=== PATIENT | male | born 1955 | race Two or more races ===

== ENCOUNTER 2016-09-15 08:40 | Inpatient (IN) | payer MEDICAID ==
[~2016-09-15] VITALS: Ht 167.6 cm; Wt 63.5 kg
[2016-09-15] VITALS (14 sets, daily range): BP systolic 92–128; BP diastolic 54–81
--- NOTE | 2016-09-15 09:04 | Emergency Room Report ---
History of Present Illness General Chief Complaint: Dyspnea/Respdistress Source: Medical Record, EMS Present Illness HPI 61 YO M BIBEMS from SN[facility] [place] for "hypoxia." EMS states SNF did not tell them the actual O2 sat level. Patient improved to 100% on EMS given NRB. Patient was just allegedly discharged from outside community hospital yesterday after admission for cholecystitis, ?aspiration PNA, known chronic hypoNa, ETOH abuse, liver failure/cirrhosis. All this info from review of charts from [facility]. Patient not providing additional info now as is acutely ill. Allergies: Coded Allergies: No Known Allergies (Unverified , 09/15/16) Patient History Limited by: medical condition Past Medical History: other - Hyponatremia, liver failure/cirrhosis, ? cholecystitis, ETOH abuse Past Surgical History: unable to obtain Pertinent Family History: unable to obtain Social History: Reports: alcohol use Immunizations: UTD Reviewed Nursing Documentation: PMH: Agreed, PSxH: Agreed Review of Systems All Other Systems: limited - Acutely ill Physical Exam Vital Signs Date Time Temp Pulse Resp B/P Pulse Ox O2 Delivery O2 Flow Rate FiO2 09/15/16 08:41 99.9 165 29 128/81 Non-Rebreather Sp02 EP Interpretation: reviewed, abnormal General Appearance: alert, moderate distress, cachetic, thin, other - jaundiced , Chronically Ill Head: normocephalic, atraumatic Eyes: bilateral eye EOMI, bilateral eye PERRL ENT: normal ENT inspection, hearing grossly normal, normal voice Neck: normal inspection, full range of motion, supple, no bony tend Respiratory: no accessory muscle use, no wheezing, respiratory distress, accessory muscle use, rales, chest symmetrical, palpation of chest normal Cardiovascular #1: regular rate, rhythm, no edema, no JVD, bradycardia, tachycardia Gastrointestinal: normal inspection, normal bowel sounds, non tender, soft, no guarding, no hernia Genitourinary: no CVA tenderness Musculoskeletal: normal inspection, back normal, normal range of motion, Delta' s Sign negative Neurologic: normal inspection, alert, responsive, business 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 Normotensive. Tachypnic. Afebrile rectal tem DDx includes sepsis, heartfailure, respiratory failure, AMI Care included sepsis order set for labs, HOLDING 30cc/kg fluid resuscitation because of presumed fluid overload, initiation of IV antibiotics, tylenol PRN fever Care may include administration of vasopressors started to support failing circulatory system, includes frequent re-exam, interpretation of lab studies and consultation with hospitalist/manager resort. 65 minutes of critical care time was spent with this patient not including time spent performing separately reportable procedures. Central Line Central Line : Consent: Emergent Central Line Lumen: triple Maximal Sterile Barrier Tech: yes cap, yes mask, yes sterile gown, yes sterile gloves, yes large sterile sheet, yes hand hygiene, yes chlorhexidine prep No Max Barrier Tech Because: emergency insertion Central Line Postion: internal jugular (R), femoral (R) Anesthesia: local Complications: none Central Line Post Position: sutured, good blood return, position confirmed w / CXR Attempts: Other - attempt made at right femoral but patient appeared to have femoral vein posterior to femoral artery. Was aunable to cannulate. Patient developed hemtoma at the site and pressure dressing was placed Patient Tolerated: Well Complications: None Intubation Intubation : Consent: Emergent Intubation Method: orotracheal Tube Size (cm): 7.5 Medications: Etomidate, Rocuronium Breath Sounds after Intubation: equal Intubation Complications: no complications Post Intubation Xray: Yes Attempts: One Patient Tolerated: Well Complications: None Medical Decision Making Diagnostic Impression: Primary Impression: Respiratory distress ER Course 61 YO M with acute respiratory distress, hypoxia. VS abnromal for tachycardia, tachypnea, hypoxia. Normotensive. Afebrile. DDx includes acute CHF, Sepsis d/t PNA vs cholecystitis PLAN Cardiac, O2 monitor BIPAP Empiric ABx Close observation OMI admission EKG Diagnostic Results Rate: tachycardiac Rhythm: NSR ST Segments: no acute changes ASA given to the pt in ED: No Rhythm Strip Diag. Results EP Interpretation: yes Rate: 165 Rhythm: NSR, no PVC's, no ectopy Chest X-Ray Diagnostic Results EP Interpretation: Yes Findings: no pneumothorax, no acute cardiopulmonary disease, other - Possible right sided PNA. Bilateral pulm congestion Reevaluation Time: 09:46 Last Vital Signs Date Time Temp Pulse Resp B/P Pulse Ox O2 Delivery O2 Flow Rate FiO2 12/28/16 08:41 99.9 165 29 128/81 Non-Rebreather Status: improved Reevaluation Impression Labs: Leuks 16k. UA does not show infection. CMP with elevated bili likely chronic from liver cirrhosis CXR with right sided PNA on ED review A: Patient with marginal improvement on BIPAP, worsening mental status. Continued tachycardia to 160. Required emergent intubation Tx with vanc/zosyn for presumed sepsis, possibly right sided aspiration PNA noted on SNF charts from previous hospital stay Right IJ central line placed. IVF bolus for sepsis givirgil Endorsed to Dr Stoddard for ICU admission at [id number] Blood/Urine cx pending Disposition: ADMITTED INPATIENT Condition: Critical TAMARA RINCON M.D. Sep 15, 2016 09:04
[2016-09-15] MEDS ORDERED: Nitroglycerin Subl 0.4mg tab (Bottle Of 25) SL ONE (09:06)
[2016-09-15] MEDS ORDERED: Vancomycin 1gm inj IVPB ONE (09:06)
[2016-09-15] MEDS ORDERED: Zosyn 4.5gm inj ONE (09:06)
[2016-09-15] MEDS ORDERED: Nitroglycerin Subl 0.4mg tab (Bottle Of 25) SL PRN (09:15)
[2016-09-15 09:20] LABS: APPEARANCE,URINE CLEAR; KETONES,URINE NEGATIVE (NEGATIVE); LEUKOCYTE ESTERASE ,URINE 1+ (NEGATIVE); NITRITE,URINE NEGATIVE (NEGATIVE); PH,URINE 5 (4.5-8.0); PROTEIN,URINE 2+ (NEGATIVE); UROBILINOGEN,URINE 8 MG/DL (0.0-1.0)
[2016-09-15 09:21] LABS: MEAN CORPUSCULAR HEMOGLOBIN 32.2 PG (27.0-31.0); MEAN CORPUSCULAR HGB CONC 31.4 G/DL (32.0-36.0); MEAN CORPUSCULAR VOLUME 102 FL (80-99); MEAN PLATELET VOLUME 8.9 FL (6.5-10.1); PLATELET COUNT 50 K/UL (150-450); RED BLOOD COUNT 2.95 M/UL (4.70-6.10); RED CELL DISTRIBUTION WIDTH 21.2 % (11.6-14.8); WHITE BLOOD COUNT 15.8 K/UL (4.8-10.8)
[2016-09-15 09:23] LABS: ICTOTEST NEGATIVE
[2016-09-15 09:27] LABS: BACTERIA,URINE FEW /HPF; SQUAMOUS EPITHELIAL CELL,UR OCCASIONAL /LPF (NONE/OCC); YEAST,URINE FEW /HPF
[2016-09-15 09:33] LABS: ALANINE AMINOTRANSFERASE 29 U/L (3-41); ALBUMIN/GLOBULIN RATIO 0.6 (1.0-2.7); ANION GAP 13 (5-15); ASPARTATE AMINO TRANSFERASE 42 U/L (5-40); CALCIUM 8.8 mg/dL (8.6-10.2); CARBON DIOXIDE 23 mEQ/L (20-30); CHLORIDE 112 mEQ/L (98-107); CREATININE 0.9 mg/dL (0.7-1.2); GLOMERULAR FILTRATION RATE > 60 mL/min (>60); HEMOLYSIS 2; POTASSIUM 4.6 mEQ/L (3.4-4.9); SODIUM 148 mEQ/L (135-145); TOTAL PROTEIN 7.2 g/dL (6.6-8.7); TROPONIN I < 0.30 ng/mL (<=0.30)
[2016-09-15 09:43] LABS: CKMB 3.1 ng/mL (< 6.7)
[2016-09-15] MEDS ORDERED: Etomidate 40mg/20ml Inj IV ONE (09:45)
[2016-09-15] MEDS ORDERED: Zemuron 50mg/5ml Inj IV ONE (09:45)
[2016-09-15] MEDS ORDERED: PANTOPRAZOLE SO40 MG ORAL (09:48)
[2016-09-15] MEDS ORDERED: MULTIVITAMINS1 EAC2 ORAL (09:48)
[2016-09-15] MEDS ORDERED: ALBUTEROL2.5 MG/3 M INH (09:56)
[2016-09-15] MEDS ORDERED: MORPHINE S10 MG/5 ML ORAL (09:56)
[2016-09-15] MEDS ORDERED: Midazolam 2mg/2ml Inj IVP ONE ×2 (10:00→10:45)
[2016-09-15 10:05] LABS: ABG ALLEN TEST POSITIVE; ABG BASE EXCESS -3.6; ABG PCO2 31.1 mmHg (35.0-45.0)
[2016-09-15 10:13] LABS: BAND NEUTROPHILS % (MANUAL) 2 % (0-8); BASOPHILS % (MANUAL) 0 % (0-2); EOSINOPHILS % (MANUAL) 0 % (0-3); LYMPHOCYTES % (MANUAL) 13 % (20-45); NEUTROPHILS % (MANUAL) 81 % (45-75); PLATELET ESTIMATE DECREASED; PLATELET MORPHOLOGY NORMAL; TOTAL CELLS COUNTED 100
[2016-09-15 10:14] LABS: HYPOCHROMASIA 1+
[2016-09-15 10:15] LABS: ANISOCYTOSIS 2+; MACROCYTES 1+
[2016-09-15 10:23] LABS: BILIRUBIN,DIRECT 3.2 mg/dL (0.1-0.3)
[2016-09-15] MEDS ORDERED: fentaNYL 100 mcg/2 mL IV ONE ×2 (10:26→10:45)
--- NOTE | 2016-09-15 10:31 | Diagnostic Imaging Report ---
Indications: Chest pain and shortness of breath Technique: Portable AP chest Findings: Comparison: None Hazy opacity in the/over right mid and lower lung. Right costophrenic angle and hemidiaphragmatic silhouette indistinct. Visualized portions of left lung and pleura clear. Heart size, visualized pulmonary vasculature within normal limits. Aortic arch calcified. Old fractures posterior lateral aspects right seventh and eighth ribs with contour deformity. PICC coiled over distal aspect the right arm. IMPRESSION: Right basal opacity--atelectasis versus pneumonia and/or pleural effusion Aortosclerosis Old right rib fracture Partially avulsed PICC right arm
[2016-09-15] MEDS ORDERED: LORazepam Inj 2mg/ml 1ml IV PRN (10:45)
[2016-09-15] MEDS ORDERED: Morphine Sulfate 4mg/ml Inj IVP PRN (10:45)
[2016-09-15] MEDS ORDERED: Miralax 17gm pkt ORAL PRN (10:45)
[2016-09-15] MEDS ORDERED: DuoNeb 0.5-3(2.5)mg/3ml neb HHN PRN (10:45)
[2016-09-15] MEDS ORDERED: Midazolam for drip 50 MG in D5W 90 ML IV SCH (10:45)
[2016-09-15] MEDS ORDERED: Midazolam for drip 50 MG in NS 90 ML IV SCH (11:30)
[2016-09-15] MEDS ORDERED: Amikacin Rx to dose MISC PRN (14:45)
[2016-09-15] MEDS: Pantoprazole Inj IVP SCH (15:47)
--- NOTE | 2016-09-15 16:11 | Cardiac Electrophysiology PN ---
Subjective Subjective [id number] Objective Last 24 Hour Vital Signs Date Time Temp Pulse Resp B/P Pulse Ox O2 Delivery O2 Flow Rate FiO2 09/15/16 15:00 96 18 92/57 100 Mechanical Ventilator 40 09/15/16 14:00 143 20 107/65 100 Mechanical Ventilator 40 09/15/16 13:48 145 09/15/16 13:30 97.4 147 19 114/77 100 Mechanical Ventilator 40 09/15/16 13:29 40 09/15/16 13:26 40 09/15/16 12:39 146 16 104/69 100 Mechanical Ventilator 09/15/16 12:32 146 20 94/62 100 Mechanical Ventilator 100 09/15/16 11:56 100 09/15/16 11:53 103 22 Mechanical Ventilator 100 09/15/16 11:48 99.9 09/15/16 11:18 22 09/15/16 10:30 99.8 160 16 107/78 100 Mechanical Ventilator 09/15/16 09:29 99.9 163 29 128/81 Non-Rebreather 09/15/16 09:28 100 09/15/16 09:15 160 29 100 Full Face 100 09/15/16 08:41 99.9 165 29 128/81 Non-Rebreather Laboratory Tests Test 09/15/16 09:00 09/15/16 09:50 White Blood Count 15.8 K/UL (4.8-10.8) H Red Blood Count 2.95 M/UL (4.70-6.10) L Hemoglobin 9.5 G/DL (14.2-18.0) L Hematocrit 30.2 % (42.0-52.0) L Mean Corpuscular Volume 102 FL (80-99) H Mean Corpuscular Hemoglobin 32.2 PG (27.0-31.0) H Mean Corpuscular Hemoglobin Concent 31.4 G/DL (32.0-36.0) L Red Cell Distribution Width 21.2 % (11.6-14.8) H Platelet Count 50 K/UL (150-450) L Mean Platelet Volume 8.9 FL (6.5-10.1) Neutrophils (%) (Auto) % (45.0-75.0) Lymphocytes (%) (Auto) % (20.0-45.0) Monocytes (%) (Auto) % (1.0-10.0) Eosinophils (%) (Auto) % (0.0-3.0) Basophils (%) (Auto) % (0.0-2.0) Differential Total Cells Counted 100 Neutrophils % (Manual) 81 % (45-75) H Lymphocytes % (Manual) 13 % (20-45) L Monocytes % (Manual) 4 % (1-10) Eosinophils % (Manual) 0 % (0-3) Basophils % (Manual) 0 % (0-2) Band Neutrophils 2 % (0-8) Platelet Estimate Decreased L Platelet Morphology Normal Hypochromasia 1+ Anisocytosis 2+ Macrocytosis 1+ Urine Color Brown Urine Appearance Clear Urine pH 5 (4.5-8.0) Urine Specific [place] 1.010 (1.005-1.035) Urine Protein 2+ (NEGATIVE) H Urine Glucose (UA) Negative (NEGATIVE) Urine Ketones Negative (NEGATIVE) Urine Occult Blood 4+ (NEGATIVE) H Urine Nitrite Negative (NEGATIVE) Urine Bilirubin 1+ (NEGATIVE) H Urine Ictotest Negative Urine Urobilinogen 8 MG/DL (0.0-1.0) H Urine Leukocyte Esterase 1+ (NEGATIVE) H Urine RBC 5-10 /HPF (0 - 0) H Urine WBC 2-4 /HPF (0 - 0) Urine Squamous Epithelial Cells Occasional /LPF Urine Bacteria Few /HPF (NONE) Urine Yeast Few /HPF (NONE) H Sodium Level 148 mEQ/L (135-145) H Potassium Level 4.6 mEQ/L (3.4-4.9) Chloride Level 112 mEQ/L (98-107) H Carbon Dioxide Level 23 mEQ/L (20-30) Anion Gap 13 (5-15) Blood Urea Nitrogen 22 mg/dL (7-23) Creatinine 0.9 mg/dL (0.7-1.2) Estimat Glomerular Filtration Rate > 60 mL/min (>60) Glucose Level 112 mg/dL (74-106) H Lactic Acid Level 1.80 mmol/L (0.66-2.22) Calcium Level 8.8 mg/dL (8.6-10.2) Total Bilirubin 6.0 mg/dL (0.0-1.2) H Direct Bilirubin 3.2 mg/dL (0.1-0.3) H Aspartate Amino Transf (AST/SGOT) 42 U/L (5-40) H Alanine Aminotransferase (ALT/SGPT) 29 U/L (3-41) Alkaline Phosphatase 188 U/L (40-129) H Total Creatine Kinase 33 U/L (38-174) L Creatine Kinase MB 3.1 ng/mL (< 6.7) Creatine Kinase MB Relative Index 9.3 Troponin I < 0.30 ng/mL (<=0.30) Pro-B-Type Natriuretic Peptide 5167 pg/mL (0-125) H Total Protein 7.2 g/dL (6.6-8.7) Albumin 2.8 g/dL (3.5-5.2) L Globulin 4.4 g/dL Albumin/Globulin Ratio 0.6 (1.0-2.7) L Arterial Blood pH 7.427 (7.350-7.450) Arterial Blood Partial Pressure CO2 31.1 mmHg (35.0-45.0) L Arterial Blood Partial Pressure O2 203.3 mmHg (75.0-100.0) H Arterial Blood HCO3 20.0 mmol/L (22.0-26.0) L Arterial Blood Oxygen Saturation 99.2 % (92.0-98.0) H Arterial Blood Base Excess -3.6 Stewart Test Positive FLORIN GALVIN Sep 15, 2016 16:11
--- NOTE | 2016-09-15 17:42 | Infectious Diseases Prog Note ---
Assessment/Plan Problems: (1) Acute respiratory failure Assessment & Plan: intubated, on mechanical ventilation, pulmonary is following (2) Sepsis Assessment & Plan: continue current antibiotics , await culture (3) Heart failure Assessment & Plan: consider diuresis, consult cardiology (4) Liver cirrhosis Assessment & Plan: supportive care , consult GI Subjective Allergies: Coded Allergies: No Known Allergies (Unverified , 09/15/16) Objective Vital Signs Last 24 Hour Vital Signs Date Time Temp Pulse Resp B/P Pulse Ox O2 Delivery O2 Flow Rate FiO2 09/15/16 16:31 97 16 40 09/15/16 16:00 98 09/15/16 16:00 98.9 97 19 98/57 100 Mechanical Ventilator 40 09/15/16 16:00 40 09/15/16 15:07 99 16 40 09/15/16 15:00 96 18 92/57 100 Mechanical Ventilator 40 09/15/16 14:00 143 20 107/65 100 Mechanical Ventilator 40 09/15/16 13:48 145 09/15/16 13:30 97.4 147 19 114/77 100 Mechanical Ventilator 40 09/15/16 13:29 40 09/15/16 13:26 40 09/15/16 13:00 106 16 40 09/15/16 12:39 146 16 104/69 100 Mechanical Ventilator 09/15/16 12:32 146 20 94/62 100 Mechanical Ventilator 100 09/15/16 11:56 100 09/15/16 11:53 103 22 Mechanical Ventilator 100 09/15/16 11:48 99.9 09/15/16 11:38 106 16 100 09/15/16 11:18 22 09/15/16 10:30 99.8 160 16 107/78 100 Mechanical Ventilator 09/15/16 09:36 120 16 100 09/15/16 09:29 99.9 163 29 128/81 Non-Rebreather 09/15/16 09:28 100 09/15/16 09:15 160 29 100 Full Face 100 09/15/16 08:41 99.9 165 29 128/81 Non-Rebreather Height (Feet): 5 Height (Inches): 6.00 Weight (Pounds): 140 Laboratory Tests Test 09/15/16 09:00 09/15/16 09:50 White Blood Count 15.8 K/UL (4.8-10.8) H Red Blood Count 2.95 M/UL (4.70-6.10) L Hemoglobin 9.5 G/DL (14.2-18.0) L Hematocrit 30.2 % (42.0-52.0) L Mean Corpuscular Volume 102 FL (80-99) H Mean Corpuscular Hemoglobin 32.2 PG (27.0-31.0) H Mean Corpuscular Hemoglobin Concent 31.4 G/DL (32.0-36.0) L Red Cell Distribution Width 21.2 % (11.6-14.8) H Platelet Count 50 K/UL (150-450) L Mean Platelet Volume 8.9 FL (6.5-10.1) Neutrophils (%) (Auto) % (45.0-75.0) Lymphocytes (%) (Auto) % (20.0-45.0) Monocytes (%) (Auto) % (1.0-10.0) Eosinophils (%) (Auto) % (0.0-3.0) Basophils (%) (Auto) % (0.0-2.0) Differential Total Cells Counted 100 Neutrophils % (Manual) 81 % (45-75) H Lymphocytes % (Manual) 13 % (20-45) L Monocytes % (Manual) 4 % (1-10) Eosinophils % (Manual) 0 % (0-3) Basophils % (Manual) 0 % (0-2) Band Neutrophils 2 % (0-8) Platelet Estimate Decreased L Platelet Morphology Normal Hypochromasia 1+ Anisocytosis 2+ Macrocytosis 1+ Urine Color Brown Urine Appearance Clear Urine pH 5 (4.5-8.0) Urine Specific [place] 1.010 (1.005-1.035) Urine Protein 2+ (NEGATIVE) H Urine Glucose (UA) Negative (NEGATIVE) Urine Ketones Negative (NEGATIVE) Urine Occult Blood 4+ (NEGATIVE) H Urine Nitrite Negative (NEGATIVE) Urine Bilirubin 1+ (NEGATIVE) H Urine Ictotest Negative Urine Urobilinogen 8 MG/DL (0.0-1.0) H Urine Leukocyte Esterase 1+ (NEGATIVE) H Urine RBC 5-10 /HPF (0 - 0) H Urine WBC 2-4 /HPF (0 - 0) Urine Squamous Epithelial Cells Occasional /LPF Urine Bacteria Few /HPF (NONE) Urine Yeast Few /HPF (NONE) H Sodium Level 148 mEQ/L (135-145) H Potassium Level 4.6 mEQ/L (3.4-4.9) Chloride Level 112 mEQ/L (98-107) H Carbon Dioxide Level 23 mEQ/L (20-30) Anion Gap 13 (5-15) Blood Urea Nitrogen 22 mg/dL (7-23) Creatinine 0.9 mg/dL (0.7-1.2) Estimat Glomerular Filtration Rate > 60 mL/min (>60) Glucose Level 112 mg/dL (74-106) H Lactic Acid Level 1.80 mmol/L (0.66-2.22) Calcium Level 8.8 mg/dL (8.6-10.2) Total Bilirubin 6.0 mg/dL (0.0-1.2) H Direct Bilirubin 3.2 mg/dL (0.1-0.3) H Aspartate Amino Transf (AST/SGOT) 42 U/L (5-40) H Alanine Aminotransferase (ALT/SGPT) 29 U/L (3-41) Alkaline Phosphatase 188 U/L (40-129) H Total Creatine Kinase 33 U/L (38-174) L Creatine Kinase MB 3.1 ng/mL (< 6.7) Creatine Kinase MB Relative Index 9.3 Troponin I < 0.30 ng/mL (<=0.30) Pro-B-Type Natriuretic Peptide 5167 pg/mL (0-125) H Total Protein 7.2 g/dL (6.6-8.7) Albumin 2.8 g/dL (3.5-5.2) L Globulin 4.4 g/dL Albumin/Globulin Ratio 0.6 (1.0-2.7) L Arterial Blood pH 7.427 (7.350-7.450) Arterial Blood Partial Pressure CO2 31.1 mmHg (35.0-45.0) L Arterial Blood Partial Pressure O2 203.3 mmHg (75.0-100.0) H Arterial Blood HCO3 20.0 mmol/L (22.0-26.0) L Arterial Blood Oxygen Saturation 99.2 % (92.0-98.0) H Arterial Blood Base Excess -3.6 Stewart Test Positive Current Medications Medications (Trade) Dose Ordered Sig/Marcello Route PRN Reason Start Time Stop Time Status Last Admin Dose Admin Acetaminophen (Tylenol) 650 mg Q4H PRN ORAL fever 09/15/16 10:45 10/15/16 10:44 Albuterol/ Ipratropium 3 ml 3 ml EVERY 4 HOURS PRN HHN Shortness of Breath 09/15/16 10:45 09/20/16 10:44 Amikacin Protocol (Amikacin pharmacy to dose) 1 ea DAILY PRN MISC . 09/15/16 14:45 10/15/16 14:44 Amikacin Sulfate 1000 mg/Sodium Chloride 104 ml @ 200 mls/hr Q24H IV 09/15/16 17:00 09/22/16 16:59 09/15/16 17:23 Ertapenem 1 gm/ Sodium Chloride 100 ml @ 100 mls/hr Q24H IV 09/15/16 16:00 09/16/16 15:59 09/15/16 15:47 Lorazepam 2 mg 2 mg EVERY 2 HOURS PRN IV For Anxiety 09/15/16 10:45 09/22/16 10:44 Morphine Sulfate (Morphine Sulfate) 4 mg EVERY 4 HOURS PRN IVP Severe Pain (Pain Scale 7-10) 09/15/16 10:45 09/22/16 10:44 Norepinephrine Bitartrate/ Dextrose (Levophed/D5W 250ml) 254 ml @ 0 mls/hr Q24H IV 09/15/16 11:30 10/15/16 11:29 Ondansetron HCl (Zofran) 4 mg Q6H PRN IVP Nausea & Vomiting 09/15/16 10:45 10/15/16 10:44 Pantoprazole (Protonix) 40 mg DAILY IVP 09/15/16 16:00 10/15/16 15:59 09/15/16 15:47 Polyethylene Glycol (Miralax) 17 gm DAILYPRN PRN ORAL Constipation 09/15/16 10:45 10/15/16 10:44 Sodium Chloride (Sodium Chloride 1000ml bag) 1,000 ml @ 100 mls/hr Q10H IVLG 09/15/16 14:00 10/15/16 13:59 09/15/16 13:18 Vancomycin HCl (Vanco rx to dose) 1 ea DAILY PRN MISC . 09/15/16 14:45 10/15/16 14:44 Vancomycin HCl/ Dextrose (Vancomycin/D5W 250ml) 250 ml @ 167 mls/hr Q12HR IVPB 09/15/16 21:00 09/20/16 20:59 Tana Landeros M.D. Sep 15, 2016 17:42
[2016-09-15 18:06] LABS: PATH BLOOD SMEAR/OMC SENT TO PATHOLOGIST
--- NOTE | 2016-09-15 18:15 | Consultation ---
History of Present Illness General Date patient seen: Sep 15, 2016 Chief Complaint: Dyspnea/Respdistress Reason for Consultation: management of shock Present Illness HPI 61 year old male with hx of end stage liver disease from SNF for hypoxemia. Patient was in process of getting admitted to a hospice, when he desaturated and brought to ER. He was intubated in ER and transferring to ICU. Pts daughter asking for DNR. Allergies: Coded Allergies: No Known Allergies (Unverified , 09/15/16) Medication History Scheduled Multivitamins* (Multivitamins*), 1 TAB ORAL DAILY, (Reported) Pantoprazole* (Pantoprazole*), 40 MG ORAL DAILY, (Reported) Scheduled PRN Albuterol Sulfate* (Albuterol Sulfate Hhn*), 3 ML INH Q6H PRN for Shortness of Breath, (Reported) Morphine Sulfate* (Morphine Sulfate*), 10 MG ORAL EVERY 4 HOURS PRN for For Pain , (Reported) Patient History Healthcare decision maker LEA GARDNER Resuscitation status Full Code Advanced Directive on File Past Medical/Surgical History Past Medical/Surgical History: (1) Liver cirrhosis (2) Heart failure Social History Social History: (1) assisted resident Review of Systems All Other Systems: negative except mentioned in HPI Physical Exam Lines, tubes and drains: peripheral HEENT: normocephalic, atraumatic Neck: non-tender, normal alignment Respiratory/Chest: chest wall non-tender, lungs clear Breasts: no masses Cardiovascular/Chest: normal peripheral pulses Abdomen: normal bowel sounds, non tender Genitourinary/Rectal: normal genital exam Last 24 Hour Vital Signs Date Time Temp Pulse Resp B/P Pulse Ox O2 Delivery O2 Flow Rate FiO2 09/15/16 17:00 99 18 96/56 100 Mechanical Ventilator 40 09/15/16 16:31 97 16 40 09/15/16 16:00 98 09/15/16 16:00 98.9 97 19 98/57 100 Mechanical Ventilator 40 09/15/16 16:00 40 09/15/16 15:07 99 16 40 09/15/16 15:00 96 18 92/57 100 Mechanical Ventilator 40 09/15/16 14:00 143 20 107/65 100 Mechanical Ventilator 40 09/15/16 13:48 145 09/15/16 13:30 97.4 147 19 114/77 100 Mechanical Ventilator 40 09/15/16 13:29 40 09/15/16 13:26 40 09/15/16 13:00 106 16 40 09/15/16 12:39 146 16 104/69 100 Mechanical Ventilator 09/15/16 12:32 146 20 94/62 100 Mechanical Ventilator 100 09/15/16 11:56 100 09/15/16 11:53 103 22 Mechanical Ventilator 100 09/15/16 11:48 99.9 09/15/16 11:38 106 16 100 09/15/16 11:18 22 09/15/16 10:30 99.8 160 16 107/78 100 Mechanical Ventilator 09/15/16 09:36 120 16 100 09/15/16 09:29 99.9 163 29 128/81 Non-Rebreather 09/15/16 09:28 100 09/15/16 09:15 160 29 100 Full Face 100 09/15/16 08:41 99.9 165 29 128/81 Non-Rebreather Laboratory Tests Test 09/15/16 09:00 09/15/16 09:50 White Blood Count 15.8 K/UL (4.8-10.8) H Red Blood Count 2.95 M/UL (4.70-6.10) L Hemoglobin 9.5 G/DL (14.2-18.0) L Hematocrit 30.2 % (42.0-52.0) L Mean Corpuscular Volume 102 FL (80-99) H Mean Corpuscular Hemoglobin 32.2 PG (27.0-31.0) H Mean Corpuscular Hemoglobin Concent 31.4 G/DL (32.0-36.0) L Red Cell Distribution Width 21.2 % (11.6-14.8) H Platelet Count 50 K/UL (150-450) L Mean Platelet Volume 8.9 FL (6.5-10.1) Neutrophils (%) (Auto) % (45.0-75.0) Lymphocytes (%) (Auto) % (20.0-45.0) Monocytes (%) (Auto) % (1.0-10.0) Eosinophils (%) (Auto) % (0.0-3.0) Basophils (%) (Auto) % (0.0-2.0) Differential Total Cells Counted 100 Neutrophils % (Manual) 81 % (45-75) H Lymphocytes % (Manual) 13 % (20-45) L Monocytes % (Manual) 4 % (1-10) Eosinophils % (Manual) 0 % (0-3) Basophils % (Manual) 0 % (0-2) Band Neutrophils 2 % (0-8) Platelet Estimate Decreased L Platelet Morphology Normal Hypochromasia 1+ Anisocytosis 2+ Macrocytosis 1+ Urine Color Brown Urine Appearance Clear Urine pH 5 (4.5-8.0) Urine Specific [place] 1.010 (1.005-1.035) Urine Protein 2+ (NEGATIVE) H Urine Glucose (UA) Negative (NEGATIVE) Urine Ketones Negative (NEGATIVE) Urine Occult Blood 4+ (NEGATIVE) H Urine Nitrite Negative (NEGATIVE) Urine Bilirubin 1+ (NEGATIVE) H Urine Ictotest Negative Urine Urobilinogen 8 MG/DL (0.0-1.0) H Urine Leukocyte Esterase 1+ (NEGATIVE) H Urine RBC 5-10 /HPF (0 - 0) H Urine WBC 2-4 /HPF (0 - 0) Urine Squamous Epithelial Cells Occasional /LPF Urine Bacteria Few /HPF (NONE) Urine Yeast Few /HPF (NONE) H Sodium Level 148 mEQ/L (135-145) H Potassium Level 4.6 mEQ/L (3.4-4.9) Chloride Level 112 mEQ/L (98-107) H Carbon Dioxide Level 23 mEQ/L (20-30) Anion Gap 13 (5-15) Blood Urea Nitrogen 22 mg/dL (7-23) Creatinine 0.9 mg/dL (0.7-1.2) Estimat Glomerular Filtration Rate > 60 mL/min (>60) Glucose Level 112 mg/dL (74-106) H Lactic Acid Level 1.80 mmol/L (0.66-2.22) Calcium Level 8.8 mg/dL (8.6-10.2) Total Bilirubin 6.0 mg/dL (0.0-1.2) H Direct Bilirubin 3.2 mg/dL (0.1-0.3) H Aspartate Amino Transf (AST/SGOT) 42 U/L (5-40) H Alanine Aminotransferase (ALT/SGPT) 29 U/L (3-41) Alkaline Phosphatase 188 U/L (40-129) H Total Creatine Kinase 33 U/L (38-174) L Creatine Kinase MB 3.1 ng/mL (< 6.7) Creatine Kinase MB Relative Index 9.3 Troponin I < 0.30 ng/mL (<=0.30) Pro-B-Type Natriuretic Peptide 5167 pg/mL (0-125) H Total Protein 7.2 g/dL (6.6-8.7) Albumin 2.8 g/dL (3.5-5.2) L Globulin 4.4 g/dL Albumin/Globulin Ratio 0.6 (1.0-2.7) L Arterial Blood pH 7.427 (7.350-7.450) Arterial Blood Partial Pressure CO2 31.1 mmHg (35.0-45.0) L Arterial Blood Partial Pressure O2 203.3 mmHg (75.0-100.0) H Arterial Blood HCO3 20.0 mmol/L (22.0-26.0) L Arterial Blood Oxygen Saturation 99.2 % (92.0-98.0) H Arterial Blood Base Excess -3.6 Stewart Test Positive Height (Feet): 5 Height (Inches): 6.00 Weight (Pounds): 140 Medications Current Medications Medications (Trade) Dose Ordered Sig/Marcello Route PRN Reason Start Time Stop Time Status Last Admin Dose Admin Acetaminophen (Tylenol) 650 mg Q4H PRN ORAL fever 09/15/16 10:45 10/15/16 10:44 Albuterol/ Ipratropium 3 ml 3 ml EVERY 4 HOURS PRN HHN Shortness of Breath 09/15/16 10:45 09/20/16 10:44 Amikacin Protocol (Amikacin pharmacy to dose) 1 ea DAILY PRN MISC . 09/15/16 14:45 10/15/16 14:44 Amikacin Sulfate 1000 mg/Sodium Chloride 104 ml @ 200 mls/hr Q24H IV 09/15/16 17:00 09/22/16 16:59 09/15/16 17:23 Ertapenem 1 gm/ Sodium Chloride 100 ml @ 100 mls/hr Q24H IV 09/15/16 16:00 09/16/16 15:59 09/15/16 15:47 Lorazepam 2 mg 2 mg EVERY 2 HOURS PRN IV For Anxiety 09/15/16 10:45 09/22/16 10:44 Morphine Sulfate (Morphine Sulfate) 4 mg EVERY 4 HOURS PRN IVP Severe Pain (Pain Scale 7-10) 09/15/16 10:45 09/22/16 10:44 Norepinephrine Bitartrate/ Dextrose (Levophed/D5W 250ml) 254 ml @ 0 mls/hr Q24H IV 09/15/16 11:30 10/15/16 11:29 Ondansetron HCl (Zofran) 4 mg Q6H PRN IVP Nausea & Vomiting 09/15/16 10:45 10/15/16 10:44 Pantoprazole (Protonix) 40 mg DAILY IVP 09/15/16 16:00 10/15/16 15:59 09/15/16 15:47 Polyethylene Glycol (Miralax) 17 gm DAILYPRN PRN ORAL Constipation 09/15/16 10:45 10/15/16 10:44 Sodium Chloride (Sodium Chloride 1000ml bag) 1,000 ml @ 100 mls/hr Q10H IVLG 09/15/16 14:00 10/15/16 13:59 09/15/16 13:18 Vancomycin HCl (Vanco rx to dose) 1 ea DAILY PRN MISC . 09/15/16 14:45 10/15/16 14:44 Vancomycin HCl/ Dextrose (Vancomycin/D5W 250ml) 250 ml @ 167 mls/hr Q12HR IVPB 09/15/16 21:00 09/20/16 20:59 Assessment/Plan Problem List: (1) Acute respiratory failure ICD Codes: J96.00 - Acute respiratory failure, unspecified whether with hypoxia or hypercapnia SNOMED: 76456032 Qualifiers: Qualified Codes: J96.01 - Acute respiratory failure with hypoxia (2) Sepsis ICD Codes: A41.9 - Sepsis, unspecified organism SNOMED: 77323981 (3) Liver cirrhosis ICD Codes: K74.60 - Unspecified cirrhosis of liver SNOMED: 31731755 Qualifiers: Qualified Codes: K70.31 - Alcoholic cirrhosis of liver with ascites (4) assisted resident ICD Codes: Z59.3 - Problems related to living in residential institution SNOMED: 832195350 (5) DNR (do not resuscitate) ICD Codes: Z66 - Do not resuscitate SNOMED: 027663301 (6) Heart failure ICD Codes: I50.9 - Heart failure, unspecified SNOMED: 96877598 Qualifiers: Qualified Codes: I50.33 - Acute on chronic diastolic (congestive) heart failure Assessment/Plan IV antibiotics IV fluids check cultures dvt prophylaxis Morphin and ativan for sedation H2 blockers. KALPESH ALANIZ Sep 15, 2016 18:15
[2016-09-15] MEDS ORDERED: Heparin 5000 units/ml inj SUBQ SCH (21:00)
--- NOTE | 2016-09-15 21:17 | History and Physical Report ---
DATE OF ADMISSION: 09/15/2016 REASON FOR ADMISSION: Respiratory failure and sepsis. HISTORY OF PRESENT ILLNESS: The patient was intubated in the ER by the ER doctor. The patient most likely has pneumonia and was intubated. The patient is admitted for pneumonia and sepsis. PAST MEDICAL HISTORY: GERD. PAST SURGICAL HISTORY: Unable to obtain. MEDICATIONS: Unable to obtain. ALLERGIES: No known allergies. FAMILY HISTORY: Unable to obtain. SOCIAL HISTORY: Unable to obtain. REVIEW OF SYSTEMS: Unable to obtain. PHYSICAL EXAMINATION: VITAL SIGNS: Temperature is 103 degrees and blood pressure 94/62. HEENT: PERRLA. CHEST: Bilateral rales. CARDIOVASCULAR: Tachycardic. GASTROINTESTINAL: Soft. Positive bowel sounds. Nontender. EXTREMITIES: No edema. NEUROLOGIC: Reflexes are equal on both sides. LABORATORY DATA: WBC of , hemoglobin 9.5, and platelets of 50,000. Sodium 148, potassium 4.6, BUN of 22, creatinine 0.9, and glucose of 112. AST 42, ALT 29, and alkaline phosphatase of 188. Total bilirubin of 6. ASSESSMENT: 1. Acute respiratory failure, intubated. 2. Elevated bilirubin. 3. pneumonia and sepsis. I have asked Dr. Tomas as well as Dr. Cervantes, Dr. Landeros, Dr. Lea, and Dr. Cade to see the patient for the above-mentioned diagnoses and treatment. The patient is going to be admitted to the ICU to critical care and is intubated. Regina Banda M.D. DR: AVA JOB#: [id number] CC:
[2016-09-15] MEDS: Vancomycin 750 MG in D5W 250 ML IVPB SCH (21:25)
--- NOTE | 2016-09-15 23:07 | Consultation ---
DATE OF CONSULTATION: INFECTIOUS DISEASE CONSULTATION REQUESTING PHYSICIAN: Regina Banda M.D. REASON FOR CONSULTATION: Sepsis, recommendation for antibiotics therapy. HISTORY OF PRESENT ILLNESS: The patient is a 61-year-old male with end-stage renal disease, who was sent from [facility] for hypoxemia. The patient was recently discharged from the hospital to SNF. He was treated for aspiration pneumonia and hyponatremia. He was found to have end-stage renal failure with cirrhosis and transferred to hospice care as per family request. Unfortunately, the patient had cardiopulmonary arrest before he signed up with hospice at the facility, so he was brought into the hospital and intubated and started on mechanical ventilation. The patient was found to be in respiratory failure and heart failure with sepsis, so I was consulted by the primary provider for antibiotics recommendation and further management. As of note, the patient is intubated on mechanical ventilation. History was mainly obtained from the niece, who was at the bedside and the medical record. REVIEW OF SYSTEMS: Unable to obtain at this point. PAST MEDICAL HISTORY: Significant for end-stage liver disease with cirrhosis, alcohol abuse, hyponatremia, and pneumonia. PAST SURGICAL HISTORY: Unable to obtain. ALLERGIES: No known drug allergy. MEDICATIONS: The patient started on vancomycin, amikacin, ertapenem, pantoprazole, sodium chloride, norepinephrine, DuoNeb, Tylenol, morphine sulfate, MiraLAX, Zofran, and Ativan. SOCIAL HISTORY: The patient has been actively drinking as an outpatient, unclear how much. No evidence of drugs or tobacco abuse. FAMILY HISTORY: Unable to obtain. PHYSICAL EXAMINATION: VITAL SIGNS: Temperature 98.9, pulse 97, respirations 19, blood pressure 98/57, and O2 saturation 100% on 40% FiO2 mechanical ventilation. GENERAL: Elderly male, cachectic with ascites, intubated on mechanical ventilation, not in distress. HEENT: Normocephalic and atraumatic. Pupils are not reactive to light due to sedation. Dry oral mucosa. NECK: Supple. No JVD. CARDIOVASCULAR: He is tachycardic. S1 and S2 positive. LUNGS: He had wheezing and crackles. Diminished breathing sounds. ABDOMEN: Soft and distended with ascites. Could not appreciate hepatomegaly. EXTREMITIES: Edema with skin tears on the lower extremities. No bruises. LABORATORY AND DIAGNOSTIC DATA: CBC showed white count of 15.8, hemoglobin of 9.5, and platelet count of 50,000. BUN of 22, creatinine of 0.9, and glucose of 112. AST of 42 and alkaline phosphatase of 188. Total CK 53. Urinalysis showed negative nitrite, +1 leukocyte esterase, red blood cells 5 to 10, and few yeast. IMAGING: Chest x-ray showed right basal opacity, atelectasis versus pneumonia or pleural effusion. Old right rib fracture . ASSESSMENT AND PLAN: 1. Sepsis, leukocytosis. Agree on the current antibiotics. We will send blood culture and urine culture. 2. Acute respiratory failure due to pneumonia, intubated on mechanical ventilation. Pulmonary is following. 3. Healthcare-acquired pneumonia with right lower lobe consolidation. Continue current antibiotics therapy. Send sputum culture. 4. Heart failure. Consider diuresis. Cardiology is following. 5. End-stage liver disease and coagulopathy. Continue supportive care. Gastroenterology consult. May benefit from hospice care and comfort measure. Discussed with the niece at the bedside. Tana Landeros M.D. DR: KATE JOB#: [id number] CC: ONOFRE
[2016-09-16] VITALS (24 sets, daily range): BP systolic 89–120; BP diastolic 46–69
--- NOTE | 2016-09-16 02:38 | Consultation ---
DATE OF CONSULTATION: 09/15/2016 CARDIOLOGY CONSULTATION CONSULTING PHYSICIAN: Enzo Lea M.D. REFERRING PHYSICIAN: Regina Banda M.D. REASON FOR CONSULTATION: Tachycardia, congestive heart failure, and respiratory failure. HISTORY OF PRESENT ILLNESS: The patient is a 61-year-old gentleman with a history of alcoholic liver cirrhosis, was brought in by EMS from [facility] [place] for hypoxia. The patient was given 100% nonrebreather by EMS. The patient apparently was recently discharged from cholecystitis and aspiration pneumonia. The patient was found to be profoundly hypoxic and was intubated and brought to the intensive care unit. At the time of my evaluation, the patient is not able to provide any information, and is unresponsive on the ventilator. REVIEW OF SYSTEMS: Cannot be obtained. PAST MEDICAL HISTORY: 1. Alcoholic liver cirrhosis. 2. Hyponatremia. 3. History of cholecystitis. SOCIAL HISTORY: He lives in a halfway. Has a history of heavy alcohol drinking. PHYSICAL EXAMINATION: VITAL SIGNS: Blood pressure 92/57, pulse 96, respirations 18, and he is afebrile. NECK: No JVD. He is orally intubated with OG-tube. LUNGS: Decreased breath sounds. CARDIOVASCULAR: Shows regular S1 and S2 with no gallop. ABDOMEN: Distended with ascites. EXTREMITIES: A 1+ pedal edema. LABORATORY AND DIAGNOSTIC DATA: White count 15.8, hemoglobin 9.5, hematocrit 30, and platelet count of 50,000. Sodium 148, potassium 4.6, BUN 22, and creatinine 0.9. Troponin is negative. BNP is 5167. ASSESSMENT AND PLAN: 1. Respiratory failure. The patient already on the ventilator, could be aspiration related. 2. Pericardial effusion. The echocardiogram showed ejection fraction of 50% to 55% with a small pericardial effusion and large posterior pleural effusion. There was a questionable possible tamponade. 3. Episode of atrial fibrillation with rapid ventricular response . 4. hypertension. 5. Cirrhosis of the liver. 6. The patient is DNR. 7. Thrombocytopenia likely secondary to cirrhosis. 8. Alcoholic liver disease. Thank you very much, Dr. Banda for allowing me to participate in the care of this patient. Please do not hesitate to contact me for any questions regarding my evaluation. Enzo Lea M.D. DR: Mike JOB#: [id number] CC:
--- NOTE | 2016-09-16 02:47 | Consultation ---
DATE OF CONSULTATION: 09/15/2016 HEMATOLOGY/ONCOLOGY CONSULTATION CONSULTING PHYSICIAN: Brandon Soto M.D. REQUESTING PHYSICIAN: Regina Banda M.D. REASON FOR CONSULTATION: Evaluation of thrombocytopenia and leukocytosis. IDENTIFICATION DATA: Dear Dr. Regina Banda, The patient is a pleasant 61-year-old male with a past medical history significant for hypernatremia, liver cirrhosis, respiratory failure, history of alcohol abuse, cholecystitis, at this time presented from the halfway facility, who was brought in by ambulance with hypoxia and respiratory failure. He improved in the EMS with nonrebreather with oxygen therapy. He was discharged recently from an outside hospital for potential cholecystitis and questionable aspiration pneumonia. Upon reviewing the records, the patient was noted to have some leukocytosis with WBC 15,000 and platelet count of 50,000. Hematology service was consulted in relation to the patient's anemia. Patient is nonverbal at this time, therefore mostly obtained through chart review. PAST MEDICAL HISTORY: As noted above. PAST SURGICAL HISTORY: Unable to obtain given the patient was intubated. MEDICATIONS: Clindamycin, , ertapenem, , sodium chloride, Tylenol, albuterol, and lorazepam. ALLERGIES: No known drug allergies. FAMILY HISTORY: Noncontributory. REVIEW OF SYSTEMS: Difficult to obtain given the patient is intubated. PHYSICAL EXAMINATION: GENERAL: The patient is in no acute distress. VITAL SIGNS: Temperature 99.9 degrees Fahrenheit, pulse of 155, respiratory rate 29, and blood pressure 128/81. PULMONARY: Decreased breath sounds. He is intubated at this time. CARDIOVASCULAR: Regular rhythm. No S3 or S4. GASTROINTESTINAL: Abdomen is soft, nontender, and nondistended. EXTREMITIES: A 1+ edema. LABORATORY DATA: WBC 16,000, hemoglobin 9.5, hematocrit 30, and platelet count of 50,000. Chemistry, BUN of 22, creatinine 0.9. Alkaline phosphatase 188. BNP of 5200. ASSESSMENT: 1. Leukocytosis likely secondary to underlying infection/pneumonia. 2. Anemia. 3. Coronary artery disease. 4. Decreased hemoglobin and hematocrit, rule out gastrointestinal bleed. 5. Thrombocytopenia, likely secondary to liver cirrhosis. 6. Liver cirrhosis and fatty infiltration. We will need to confirm this. 7. Transaminitis. 8. Elevated brain natriuretic peptide. 9. Pneumonia. 10. History of questionable cholecystitis. RECOMMENDATIONS: 1. Monitor counts. 2. The patient is intubated after having respiratory distress. 3. Anemia workup has been ordered. 4. Followup on Cardiology and GI recommendations as well as Pulmonary recommendations. 5. GI prophylaxis with pantoprazole. 6. DVT prophylaxis with SCDs. 7. Anemia workup has been ordered including CA, ferritin, folic acid, iron, count, TSH, and B12. 8. Obtain thrombocytopenia workup, which includes also hepatitis panel and folic acid. 9. Obtain ultrasound of the abdomen to confirm the outside diagnosis given that this is patient's first admission to the hospital at [facility]. 10. Pain control. 11. Discussed with staff. Thank you, Dr. Regina Banda, for this kind referral. Please do not hesitate to contact me with any further questions. Brandon Soto M.D. DR: ANGI JOB#: [id number] CC:
[2016-09-16 05:35] LABS: MEAN CORPUSCULAR HEMOGLOBIN 33.1 PG (27.0-31.0); MEAN CORPUSCULAR HGB CONC 32.3 G/DL (32.0-36.0); MEAN CORPUSCULAR VOLUME 102 FL (80-99); MEAN PLATELET VOLUME 9.5 FL (6.5-10.1); PLATELET COUNT 44 K/UL (150-450); RED BLOOD COUNT 2.43 M/UL (4.70-6.10); RED CELL DISTRIBUTION WIDTH 21.1 % (11.6-14.8); WHITE BLOOD COUNT 14.2 K/UL (4.8-10.8)
[2016-09-16 05:41] LABS: INR 1.7 (0.9-1.1); PROTHROMBIN TIME 18.1 SEC (9.30-11.50)
[2016-09-16 05:54] LABS: ALANINE AMINOTRANSFERASE 20 U/L (3-41); ALBUMIN/GLOBULIN RATIO 0.5 (1.0-2.7); ANION GAP 13 (5-15); ASPARTATE AMINO TRANSFERASE 32 U/L (5-40); BILIRUBIN,DIRECT 2.5 mg/dL (0.1-0.3); CALCIUM 7.7 mg/dL (8.6-10.2); CARBON DIOXIDE 20 mEQ/L (20-30); CHLORIDE 120 mEQ/L (98-107); CREATININE 1.2 mg/dL (0.7-1.2); GLOMERULAR FILTRATION RATE > 60 mL/min (>60); HEMOLYSIS 0; POTASSIUM 3.8 mEQ/L (3.4-4.9); SODIUM 153 mEQ/L (135-145); TOTAL PROTEIN 5.8 g/dL (6.6-8.7)
[2016-09-16 06:44] LABS: THYROID STIMULATING HORMONE 3.19 uIU/mL (0.300-4.500)
--- NOTE | 2016-09-16 08:18 | General Progress Note ---
Assessment/Plan Assessment/Plan ASSESSMENT: 1. Leukocytosis likely secondary to underlying infection/pneumonia. 2. Anemia 2/2 chronic disease 3. Decreased hemoglobin and hematocrit, rule out gastrointestinal bleed. 4. Respiratory failure s/p intubation 5. Thrombocytopenia, likely secondary to liver cirrhosis. 6. Liver cirrhosis and fatty infiltration. We will need to confirm this. 7. Transaminitis. 8. Elevated brain natriuretic peptide. 9. Pneumonia. 10. History of questionable cholecystitis. RECOMMENDATIONS: 1. Monitor counts. 2. Transfuse with 1 unit today prbc 3. Anemia workup has been ordered. 4. Followup on Cardiology and GI recommendations as well as Pulmonary recommendations. 5. GI prophylaxis with pantoprazole. 6. DVT prophylaxis with SCDs. 7. Anemia workup has been reviewed, DOES not need iron treatment, ferritin >400 8. Hepatitis panel pending 9. Obtain ultrasound of the abdomen 10. Pain control. 11. Discussed with staff. Thank you, Brandon Soto MD Subjective Constitutional: Reports: no symptoms HEENT: Reports: no symptoms Cardiovascular: Reports: no symptoms Respiratory: Reports: no symptoms Gastrointestinal/Abdominal: Reports: poor appetite Genitourinary: Reports: no symptoms Neurologic/Psychiatric: Reports: no symptoms Endocrine: Reports: no symptoms Hematologic/Lymphatic: Reports: anemia Allergies: Coded Allergies: No Known Allergies (Unverified , 09/15/16) Subjective stable, no events, slightly lower h/h Objective Last 24 Hour Vital Signs Date Time Temp Pulse Resp B/P Pulse Ox O2 Delivery O2 Flow Rate FiO2 09/16/16 08:11 93 09/16/16 08:07 97.3 92 20 94/53 100 Mechanical Ventilator 40 09/16/16 08:03 40 09/16/16 07:02 94 16 107/60 100 Mechanical Ventilator 40 09/16/16 06:52 95 17 40 09/16/16 06:00 93 16 111/57 100 Mechanical Ventilator 40 09/16/16 05:10 98 20 40 09/16/16 05:00 96 16 97/49 98 Mechanical Ventilator 40 09/16/16 04:17 40 09/16/16 04:16 103 09/16/16 04:00 99.5 103 16 105/57 98 Mechanical Ventilator 40 09/16/16 03:10 102 20 40 09/16/16 03:00 103 18 107/62 100 Mechanical Ventilator 40 09/16/16 02:06 100 16 113/62 100 Mechanical Ventilator 40 09/16/16 01:18 103 21 40 09/16/16 01:00 98 16 111/61 100 Mechanical Ventilator 40 09/16/16 00:15 40 09/16/16 00:13 99 09/16/16 00:00 98.9 99 16 120/69 100 Mechanical Ventilator 40 09/15/16 23:29 100 22 40 09/15/16 23:00 99 16 106/62 100 Mechanical Ventilator 40 09/15/16 22:00 96 16 99/54 100 Mechanical Ventilator 40 09/15/16 21:10 94 17 40 09/15/16 21:00 98.7 98 19 107/58 100 Mechanical Ventilator 40 09/15/16 20:00 99.2 96 20 104/54 100 Mechanical Ventilator 40 09/15/16 20:00 40 09/15/16 20:00 97 09/15/16 19:25 95 17 40 09/15/16 19:00 97 16 104/56 100 Mechanical Ventilator 40 09/15/16 18:00 96 18 99/59 100 Mechanical Ventilator 40 09/15/16 17:00 99 18 96/56 100 Mechanical Ventilator 40 09/15/16 16:31 97 16 40 09/15/16 16:00 98 09/15/16 16:00 98.9 97 19 98/57 100 Mechanical Ventilator 40 09/15/16 16:00 40 09/15/16 15:07 99 16 40 09/15/16 15:00 96 18 92/57 100 Mechanical Ventilator 40 09/15/16 14:00 143 20 107/65 100 Mechanical Ventilator 40 09/15/16 13:48 145 09/15/16 13:30 97.4 147 19 114/77 100 Mechanical Ventilator 40 09/15/16 13:29 40 09/15/16 13:26 40 09/15/16 13:00 106 16 40 09/15/16 12:39 146 16 104/69 100 Mechanical Ventilator 09/15/16 12:32 146 20 94/62 100 Mechanical Ventilator 100 09/15/16 11:56 100 09/15/16 11:53 103 22 Mechanical Ventilator 100 09/15/16 11:48 99.9 09/15/16 11:38 106 16 100 09/15/16 11:18 22 09/15/16 10:30 99.8 160 16 107/78 100 Mechanical Ventilator 09/15/16 09:36 120 16 100 09/15/16 09:29 99.9 163 29 128/81 Non-Rebreather 09/15/16 09:28 100 09/15/16 09:15 160 29 100 Full Face 100 09/15/16 08:41 99.9 165 29 128/81 Non-Rebreather Intake and Output 09/15/16 09/16/16 19:00 07:00 Intake Total 3804 ml 770 ml Output Total 450 ml 650 ml Balance 3354 ml 120 ml Intake IV Total 554 ml 770 ml Other 3250 ml Output Urine Total 450 ml 650 ml Laboratory Tests 09/15/16 09:00: White Blood Count 15.8H, Red Blood Count 2.95L, Hemoglobin 9.5L, Hematocrit 30.2L, Mean Corpuscular Volume 102H, Mean Corpuscular Hemoglobin 32.2H, Mean Corpuscular Hemoglobin Concent 31.4L, Red Cell Distribution Width 21.2H, Platelet Count 50L, Mean Platelet Volume 8.9, Neutrophils (%) (Auto) , Lymphocytes (%) (Auto) , Monocytes (%) (Auto) , Eosinophils (%) (Auto) , Basophils (%) (Auto) , Differential Total Cells Counted 100, Neutrophils % ( Manual) 81H, Lymphocytes % (Manual) 13L, Monocytes % (Manual) 4, Eosinophils % ( Manual) 0, Basophils % (Manual) 0, Band Neutrophils 2, Platelet Estimate DecreasedL, Platelet Morphology Normal, Hypochromasia 1+, Anisocytosis 2+, Macrocytosis 1+, Urine Color Brown, Urine Appearance Clear, Urine pH 5, Urine Specific Rodney 1.010, Urine Protein 2+H, Urine Glucose (UA) Negative, Urine Ketones Negative, Urine Occult Blood 4+H, Urine Nitrite Negative, Urine Bilirubin 1+H, Urine Ictotest Negative, Urine Urobilinogen 8H, Urine Leukocyte Esterase 1+H, Urine RBC 5-10H, Urine WBC 2-4, Urine Squamous Epithelial Cells Occasional, Urine Bacteria Few, Urine Yeast FewH, Sodium Level 148H, Potassium Level 4.6, Chloride Level 112H, Carbon Dioxide Level 23, Anion Gap 13, Blood Urea Nitrogen 22, Creatinine 0.9, Estimat Glomerular Filtration Rate > 60, Glucose Level 112H, Lactic Acid Level 1.80, Calcium Level 8.8, Total Bilirubin 6.0H, Direct Bilirubin 3.2H, Aspartate Amino Transf (AST/SGOT) 42H, Alanine Aminotransferase (ALT/SGPT) 29, Alkaline Phosphatase 188H, Total Creatine Kinase 33L, Creatine Kinase MB 3.1, Creatine Kinase MB Relative Index 9.3, Troponin I < 0.30, Pro-B-Type Natriuretic Peptide 5167H, Total Protein 7.2, Albumin 2.8L, Globulin 4.4, Albumin/Globulin Ratio 0.6L 09/15/16 09:50: Arterial Blood pH 7.427, Arterial Blood Partial Pressure CO2 31.1L, Arterial Blood Partial Pressure O2 203.3H, Arterial Blood HCO3 20.0L, Arterial Blood Oxygen Saturation 99.2H, Arterial Blood Base Excess -3.6, Stewart Test Positive 09/16/16 05:00: White Blood Count 14.2H, Red Blood Count 2.43L, Hemoglobin 8.0L, Hematocrit 24.9L, Mean Corpuscular Volume 102H, Mean Corpuscular Hemoglobin 33.1H, Mean Corpuscular Hemoglobin Concent 32.3, Red Cell Distribution Width 21.1H, Platelet Count 44L, Mean Platelet Volume 9.5, Neutrophils (%) (Auto) , Lymphocytes (%) (Auto) , Monocytes (%) (Auto) , Eosinophils (%) (Auto) , Basophils (%) (Auto) , Neutrophils % (Manual) [Pending], Lymphocytes % (Manual) [Pending], Platelet Estimate [Pending], Platelet Morphology [Pending], Sodium Level 153H, Potassium Level 3.8, Chloride Level 120H, Carbon Dioxide Level 20, Anion Gap 13, Blood Urea Nitrogen 29H, Creatinine 1.2, Estimat Glomerular Filtration Rate > 60, Glucose Level 111H, Calcium Level 7.7L, Total Bilirubin 4.2H, Direct Bilirubin 2.5H, Aspartate Amino Transf (AST/SGOT) 32, Alanine Aminotransferase (ALT/SGPT) 20, Alkaline Phosphatase 165H, Total Protein 5.8L, Albumin 2.1L, Globulin 3.7, Albumin/Globulin Ratio 0.5L, Reticulocyte Count [ Pending], Prothrombin Time 18.1H, Prothromb Time International Ratio 1.7H, Iron Level 38L, Total Iron Binding Capacity 59L, Percent Iron Saturation 64H, Unsaturated Iron Binding 21L, Ferritin 406H, Carcinoembryonic Antigen 4.0H, Vitamin B12 Level 1958H, Folate [Pending], Thyroid Stimulating Hormone (TSH) 3.190, Free Thyroxine 1.01, Random Amikacin Level 16.6, Hepatitis A IgM Antibody [Pending], Hepatitis B Surface Antigen [Pending], Hepatitis B Core IgM Antibody [Pending], Hepatitis C Antibody [Pending] Height (Feet): 5 Height (Inches): 6.00 Weight (Pounds): 140 General Appearance: no apparent distress Neck: supple Cardiovascular: normal rate Respiratory/Chest: lungs clear Abdomen: non tender Extremities: non-tender Edema: 1+ Leg (L), 1+ Leg (R) Edema: mild edema Neurologic: alert Skin: warm/dry Brandon Soto Sep 16, 2016 08:18
[2016-09-16 08:28] LABS: ABG PCO2 30.1 mmHg (35.0-45.0)
[2016-09-16 08:29] LABS: ABG ALLEN TEST POSITIVE; ABG BASE EXCESS -4.8
[2016-09-16] MEDS: Pantoprazole Inj IVP SCH (08:33)
[2016-09-16] MEDS: Vancomycin 750 MG in D5W 250 ML IVPB SCH (08:33)
[2016-09-16 08:55] LABS: BAND NEUTROPHILS % (MANUAL) 2 % (0-8); BASOPHILS % (MANUAL) 1 % (0-2); EOSINOPHILS % (MANUAL) 3 % (0-3); LYMPHOCYTES % (MANUAL) 7 % (20-45); NEUTROPHILS % (MANUAL) 83 % (45-75); PLATELET ESTIMATE DECREASED; PLATELET MORPHOLOGY NORMAL; TOTAL CELLS COUNTED 100
[2016-09-16 08:56] LABS: ANISOCYTOSIS 2+
[2016-09-16 08:57] LABS: MACROCYTES 1+
--- NOTE | 2016-09-16 09:57 | Wound Care Consultation ---
Wound Assessment Wound Assessment #1: Wound Present on Admission: Yes New Wound: No Status Change of Wound: No Wound Location Body Site Modif: left, lower, anterior Wound Location Body Site: leg Wound Type: traumatic injury Carri Test: Does not Carri Wound Thickness: Full Thickness Wound Length: 1.0 Wound Width: 1.0 Wound Depth: 0.1 Percent of Wound Reagan/Red: 100 Wound Drainage Amount: None Wound Drainage Odor: None/Absent Tissue Surrounding Wound: Erythemic Wound General Appearance: Reddened Wound Assessment #2: Wound Number: #2 Wound Present on Admission: Yes New Wound: No Status Change of Wound: No Wound Location Body Site Modif: left Wound Location Body Site: trochanter Wound Type: pressure ulcer Carri Test: Does not Carri Pressure Ulcer Stage: III - resolving Wound Thickness: Full Thickness Wound Length: 2.0 Wound Width: 2.0 Wound Depth: 0.2 Percent of Wound Reagan/Red: 100 Wound Drainage Description: Serosanguineous Wound Drainage Amount: Scant Wound Drainage Odor: None/Absent Tissue Surrounding Wound: Erythemic Wound General Appearance: Reddened Wound Assessment #3: Wound Number: #3 Wound Present on Admission: Yes New Wound: No Status Change of Wound: No Wound Location Body Site Modif: right Wound Location Body Site: heel Wound Type: pressure ulcer Carri Test: Does not Carri Pressure Ulcer Stage: deep tissue injury Wound Thickness: Full Thickness Wound Length: 3.0 Wound Width: 3.0 Wound Depth: utd Percent of Wound Reagan/Red: 80 Percent of Wound Purple/Maroon: 20 Wound Drainage Amount: None Wound Drainage Odor: None/Absent Tissue Surrounding Wound: Erythemic Wound General Appearance: Reddened Wound Assessment #4: Wound Number: #4 Wound Present on Admission: Yes New Wound: No Status Change of Wound: No Wound Location Body Site Modif: right Wound Location Body Site: heel Wound Type: pressure ulcer Carri Test: Does not Carri Pressure Ulcer Stage: deep tissue injury Wound Thickness: Full Thickness Wound Length: 3.0 Wound Width: 3.0 Wound Depth: utd Percent of Wound Reagan/Red: 80 Percent of Wound Purple/Maroon: 20 Wound Drainage Amount: None Wound Drainage Odor: None/Absent Tissue Surrounding Wound: Erythemic Wound General Appearance: Reddened Wound Assessment #5: Wound Number: #5 Wound Present on Admission: Yes New Wound: No Status Change of Wound: No Wound Location Body Site Modif: right Wound Location Body Site: trochanter Wound Type: pressure ulcer Carri Test: Does not Carri Pressure Ulcer Stage: deep tissue injury Wound Thickness: Full Thickness Wound Length: 0.5 Wound Width: 0.5 Wound Depth: utd Percent of Wound Purple/Maroon: 100 Wound Drainage Amount: None Tissue Surrounding Wound: Erythemic Wound General Appearance: Reddened Wound Assessment #6: Wound Number: #6 Wound Present on Admission: Yes New Wound: No Status Change of Wound: No Wound Location Body Site: sacral Wound Type: pressure ulcer Carri Test: Does not Carri Pressure Ulcer Stage: I Wound Thickness: Partial Thickness Wound Length: 3.0 Wound Width: 3.0 Percent of Wound Reagan/Red: 100 Wound Drainage Amount: None Wound Drainage Odor: None/Absent Tissue Surrounding Wound: Erythemic Wound General Appearance: Reddened Wound Comment #1 Left Lower Anterior Leg Traumatic Injury. #2 Left Trochanter Pressure Ulcer Stage III. #3 Right Heel Pressure Ulcer Deep Tissue Injury. #4 Left Heel Pressure Ulcer Deep Tissue Injury. #5 Right Trochanter Pressure Ulcer Deep Tissue Injury. #6 Sacral Pressure Ulcer Stage I. Recommendation - Local wound care as ordered. -Low air loss mattress with AP . -Optimize Nutrition. -Keep clean and dry. -Turn reposition and offload heels and feet. -Heel Protectors. -Assess and follow up with MD for any changes. NATALY BUNN Sep 16, 2016 09:57
--- NOTE | 2016-09-16 10:00 | Pulmonolgy Critical Care Note ---
Critical Care - Asmt/Plan Problems: (1) Respiratory distress (2) Sepsis (3) Acute respiratory failure (4) Liver cirrhosis (5) DNR (do not resuscitate) (6) correction resident Respiratory: monitor respiratory rate, adjust FIO2, CXR Cardiac: continue pressors, continue to monitor HR/BP Renal: F/U I&O, keep IV fluid, check electrolytes Infectious Disease: check cultures Gastrointestinal: continue feedings/current rate, other - add lactulose Endocrine: monitor blood sugar, check TSH, continue sliding scale insulin Hematologic: transfuse if hgb<8.5 Neurologic: PRN Ativan, keep patient comfortable Affect: PRN ativan Notes Reviewed: 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, 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, renal Discussed with: nurses, consultants, mattress spring encaserresidential care facility manager - Objective Last 24 Hour Vital Signs Date Time Temp Pulse Resp B/P Pulse Ox O2 Delivery O2 Flow Rate FiO2 09/16/16 09:09 90 16 94/46 100 Mechanical Ventilator 40 09/16/16 08:45 88 18 40 09/16/16 08:11 93 09/16/16 08:07 97.3 92 20 94/53 100 Mechanical Ventilator 40 09/16/16 08:03 40 09/16/16 07:02 94 16 107/60 100 Mechanical Ventilator 40 09/16/16 06:52 95 17 40 09/16/16 06:00 93 16 111/57 100 Mechanical Ventilator 40 09/16/16 05:10 98 20 40 09/16/16 05:00 96 16 97/49 98 Mechanical Ventilator 40 09/16/16 04:17 40 09/16/16 04:16 103 09/16/16 04:00 99.5 103 16 105/57 98 Mechanical Ventilator 40 09/16/16 03:10 102 20 40 09/16/16 03:00 103 18 107/62 100 Mechanical Ventilator 40 09/16/16 02:06 100 16 113/62 100 Mechanical Ventilator 40 09/16/16 01:18 103 21 40 09/16/16 01:00 98 16 111/61 100 Mechanical Ventilator 40 09/16/16 00:15 40 09/16/16 00:13 99 09/16/16 00:00 98.9 99 16 120/69 100 Mechanical Ventilator 40 09/15/16 23:29 100 22 40 09/15/16 23:00 99 16 106/62 100 Mechanical Ventilator 40 09/15/16 22:00 96 16 99/54 100 Mechanical Ventilator 40 09/15/16 21:10 94 17 40 09/15/16 21:00 98.7 98 19 107/58 100 Mechanical Ventilator 40 09/15/16 20:00 99.2 96 20 104/54 100 Mechanical Ventilator 40 09/15/16 20:00 40 09/15/16 20:00 97 09/15/16 19:25 95 17 40 09/15/16 19:00 97 16 104/56 100 Mechanical Ventilator 40 09/15/16 18:00 96 18 99/59 100 Mechanical Ventilator 40 09/15/16 17:00 99 18 96/56 100 Mechanical Ventilator 40 09/15/16 16:31 97 16 40 09/15/16 16:00 98 09/15/16 16:00 98.9 97 19 98/57 100 Mechanical Ventilator 40 09/15/16 16:00 40 09/15/16 15:07 99 16 40 09/15/16 15:00 96 18 92/57 100 Mechanical Ventilator 40 09/15/16 14:00 143 20 107/65 100 Mechanical Ventilator 40 09/15/16 13:48 145 09/15/16 13:30 97.4 147 19 114/77 100 Mechanical Ventilator 40 09/15/16 13:29 40 09/15/16 13:26 40 09/15/16 13:00 106 16 40 09/15/16 12:39 146 16 104/69 100 Mechanical Ventilator 09/15/16 12:32 146 20 94/62 100 Mechanical Ventilator 100 09/15/16 11:56 100 09/15/16 11:53 103 22 Mechanical Ventilator 100 09/15/16 11:48 99.9 09/15/16 11:38 106 16 100 09/15/16 11:18 22 09/15/16 10:30 99.8 160 16 107/78 100 Mechanical Ventilator Status: obtunded Condition: critical HEENT: atraumatic, normocephalic Neck: full ROM Lungs: chest wall tender Heart: HR/BP unstable Abdomen: soft, non-tender Extremities: no C/C/E, edema Micro: Microbiology Date/Time Source Procedure Growth Status 09/15/16 09:00 Blood Blood Culture - Preliminary Resulted 09/15/16 09:00 Blood Blood Culture - Preliminary Resulted 09/15/16 09:00 Urine,Clean Catch Urine Culture - Preliminary Resulted Accucheck: 103 Critical Care - Subjective ROS Limited/Unobtainable: No ICU Day: 2 Intubation Day: 2 Condition: critical FI02: 40 Vent Support Breath Rate: 16 Vent Support Mode: AC Vent Tidal Volume: 500 Sputum Amount: Moderate PEEP: 0 PIP: 22 Fluids: NS 100 cc.hour I&O: Intake and Output 09/15/16 09/16/16 19:00 07:00 Intake Total 3804 ml 770 ml Output Total 450 ml 650 ml Balance 3354 ml 120 ml Intake IV Total 554 ml 770 ml Other 3250 ml Output Urine Total 450 ml 650 ml ET-Tube: 7.5 ET Position: 23 Labs: Laboratory Tests Test 09/16/16 05:00 09/16/16 08:24 09/16/16 08:45 White Blood Count 14.2 K/UL (4.8-10.8) H Red Blood Count 2.43 M/UL (4.70-6.10) L Hemoglobin 8.0 G/DL (14.2-18.0) L Hematocrit 24.9 % (42.0-52.0) L Mean Corpuscular Volume 102 FL (80-99) H Mean Corpuscular Hemoglobin 33.1 PG (27.0-31.0) H Mean Corpuscular Hemoglobin Concent 32.3 G/DL (32.0-36.0) Red Cell Distribution Width 21.1 % (11.6-14.8) H Platelet Count 44 K/UL (150-450) L Mean Platelet Volume 9.5 FL (6.5-10.1) Neutrophils (%) (Auto) % (45.0-75.0) Lymphocytes (%) (Auto) % (20.0-45.0) Monocytes (%) (Auto) % (1.0-10.0) Eosinophils (%) (Auto) % (0.0-3.0) Basophils (%) (Auto) % (0.0-2.0) Differential Total Cells Counted 100 Neutrophils % (Manual) 83 % (45-75) H Lymphocytes % (Manual) 7 % (20-45) L Monocytes % (Manual) 4 % (1-10) Eosinophils % (Manual) 3 % (0-3) Basophils % (Manual) 1 % (0-2) Band Neutrophils 2 % (0-8) Platelet Estimate Decreased L Platelet Morphology Normal Anisocytosis 2+ Macrocytosis 1+ Reticulocyte Count 1.7 % (0.0-2.0) Prothrombin Time 18.1 SEC (9.30-11.50) H Prothromb Time International Ratio 1.7 (0.9-1.1) H Sodium Level 153 mEQ/L (135-145) H Potassium Level 3.8 mEQ/L (3.4-4.9) Chloride Level 120 mEQ/L (98-107) H Carbon Dioxide Level 20 mEQ/L (20-30) Anion Gap 13 (5-15) Blood Urea Nitrogen 29 mg/dL (7-23) H Creatinine 1.2 mg/dL (0.7-1.2) Estimat Glomerular Filtration Rate > 60 mL/min (>60) Glucose Level 111 mg/dL (74-106) H Calcium Level 7.7 mg/dL (8.6-10.2) L Iron Level 38 ug/dL (59-158) L Total Iron Binding Capacity 59 ug/dL (250-400) L Percent Iron Saturation 64 % (15-50) H Unsaturated Iron Binding 21 ug/dL (112-346) L Ferritin 406 ng/mL (10-230) H Total Bilirubin 4.2 mg/dL (0.0-1.2) H Direct Bilirubin 2.5 mg/dL (0.1-0.3) H Aspartate Amino Transf (AST/SGOT) 32 U/L (5-40) Alanine Aminotransferase (ALT/SGPT) 20 U/L (3-41) Alkaline Phosphatase 165 U/L (40-129) H Total Protein 5.8 g/dL (6.6-8.7) L Albumin 2.1 g/dL (3.5-5.2) L Globulin 3.7 g/dL Albumin/Globulin Ratio 0.5 (1.0-2.7) L Carcinoembryonic Antigen 4.0 ng/mL H Vitamin B12 Level 1958 pg/mL (211-946) H Folate Pending Thyroid Stimulating Hormone (TSH) 3.190 uIU/mL (0.300-4.500) Free Thyroxine 1.01 ng/dL (0.86-1.85) Random Amikacin Level 16.6 ug/mL Hepatitis A IgM Antibody Pending Hepatitis B Surface Antigen Pending Hepatitis B Core IgM Antibody Pending Hepatitis C Antibody Pending Arterial Blood pH 7.419 (7.350-7.450) Arterial Blood Partial Pressure CO2 30.1 mmHg (35.0-45.0) L Arterial Blood Partial Pressure O2 46.5 mmHg (75.0-100.0) Arterial Blood HCO3 19.0 mmol/L (22.0-26.0) L Arterial Blood Oxygen Saturation 79.5 % (92.0-98.0) L Arterial Blood Base Excess -4.8 Stewart Test Positive HIV (1&2) Antibody Rapid Negative (NEGATIVE) KALPESH ALANIZ Sep 16, 2016 10:00
[2016-09-16] MEDS ORDERED: Phytonadione 10 MG in D5W 50 ML IVPB ONE (11:00)
[2016-09-16] MEDS: Lactulose 20gm/30ml UDC ORAL SCH ×2 (13:55→17:34)
--- NOTE | 2016-09-16 14:07 | GI Initial Consult Note ---
History of Present Illness General Date patient seen: Sep 16, 2016 Time patient seen: 11:00 Reason for Hospitalization: Dyspnea/Respdistress Referring physician: AIMEE RIOS Reason for Consultation: LIVER FAILURE Present Illness HPI 61 YO M BIBEMS from [facility] [place] for "hypoxia." EMS states SNF did not tell them the actual O2 sat level. Patient improved to 100% on EMS given NRB. Patient was just allegedly discharged from outside community hospital yesterday after admission for cholecystitis, ?aspiration PNA, known chronic hypoNa, ETOH abuse, liver failure/cirrhosis. All this info from review of charts from [facility]. Patient not providing additional info now as is acutely ill. GI NOTE: HPI as noted above. GI consulted for anemia, liver failure/ cirrhosis. Pt seen on floor, awake in restraints. Unable to obtain any history. Pt p/w with leukocytosis, anemia, elevated INR, elevated total bilirubin and hypoalbuminemia. Unknown history of any endoscopic procedures. No active signs of GI bleeding noted at this time. Procedure: XRAY Chest 1v Indications: Chest pain and shortness of breath IMPRESSION: Right basal opacity--atelectasis versus pneumonia and/or pleural effusion Aortosclerosis Old right rib fracture Partially avulsed PICC right arm Home Meds Reported Medications Albuterol Sulfate* (ALBUTEROL SULFATE HHN*) 2.5 Mg/3 Ml Vial.neb, 3 ML INH Q6H Y for Shortness of Breath, #30 EA 0 Refills 09/15/16 Morphine Sulfate* (MORPHINE SULFATE*) 10 Mg/5 Ml Solution, 10 MG ORAL EVERY 4 HOURS Y for For Pain, ML 0 Refills 09/15/16 Pantoprazole* (PANTOPRAZOLE*) 40 Mg Tablet.dr, 40 MG ORAL DAILY, TAB 09/15/16 Multivitamins* (MULTIVITAMINS*) 1 Each Tablet, 1 TAB ORAL DAILY, TAB 0 Refills 09/15/16 Med list reviewed/reconciled: Yes Allergies: Coded Allergies: No Known Allergies (Unverified , 09/15/16) Patient History Limited by: medical condition Family History Narrative Limited by: medical condition Past Medical History: other - Hyponatremia, liver failure/cirrhosis, ? cholecystitis, ETOH abuse Past Surgical History: unable to obtain Pertinent Family History: unable to obtain Social History: Reports: alcohol use Immunizations: UTD Reviewed Nursing Documentation: PMH: Agreed, PSxH: Agreed Review of Systems All Other Systems: negative except mentioned in HPI Physical Exam Vital Signs Date Time Temp Pulse Resp B/P Pulse Ox O2 Delivery O2 Flow Rate FiO2 09/15/16 08:41 99.9 165 29 128/81 Non-Rebreather 09/15/16 09:15 100 100 Sp02 EP Interpretation: reviewed Labs Laboratory Tests Test 09/16/16 05:00 09/16/16 08:24 09/16/16 08:45 White Blood Count 14.2 K/UL (4.8-10.8) H Red Blood Count 2.43 M/UL (4.70-6.10) L Hemoglobin 8.0 G/DL (14.2-18.0) L Hematocrit 24.9 % (42.0-52.0) L Mean Corpuscular Volume 102 FL (80-99) H Mean Corpuscular Hemoglobin 33.1 PG (27.0-31.0) H Mean Corpuscular Hemoglobin Concent 32.3 G/DL (32.0-36.0) Red Cell Distribution Width 21.1 % (11.6-14.8) H Platelet Count 44 K/UL (150-450) L Mean Platelet Volume 9.5 FL (6.5-10.1) Neutrophils (%) (Auto) % (45.0-75.0) Lymphocytes (%) (Auto) % (20.0-45.0) Monocytes (%) (Auto) % (1.0-10.0) Eosinophils (%) (Auto) % (0.0-3.0) Basophils (%) (Auto) % (0.0-2.0) Differential Total Cells Counted 100 Neutrophils % (Manual) 83 % (45-75) H Lymphocytes % (Manual) 7 % (20-45) L Monocytes % (Manual) 4 % (1-10) Eosinophils % (Manual) 3 % (0-3) Basophils % (Manual) 1 % (0-2) Band Neutrophils 2 % (0-8) Platelet Estimate Decreased L Platelet Morphology Normal Anisocytosis 2+ Macrocytosis 1+ Reticulocyte Count 1.7 % (0.0-2.0) Prothrombin Time 18.1 SEC (9.30-11.50) H Prothromb Time International Ratio 1.7 (0.9-1.1) H Sodium Level 153 mEQ/L (135-145) H Potassium Level 3.8 mEQ/L (3.4-4.9) Chloride Level 120 mEQ/L (98-107) H Carbon Dioxide Level 20 mEQ/L (20-30) Anion Gap 13 (5-15) Blood Urea Nitrogen 29 mg/dL (7-23) H Creatinine 1.2 mg/dL (0.7-1.2) Estimat Glomerular Filtration Rate > 60 mL/min (>60) Glucose Level 111 mg/dL (74-106) H Calcium Level 7.7 mg/dL (8.6-10.2) L Iron Level 38 ug/dL (59-158) L Total Iron Binding Capacity 59 ug/dL (250-400) L Percent Iron Saturation 64 % (15-50) H Unsaturated Iron Binding 21 ug/dL (112-346) L Ferritin 406 ng/mL (10-230) H Total Bilirubin 4.2 mg/dL (0.0-1.2) H Direct Bilirubin 2.5 mg/dL (0.1-0.3) H Aspartate Amino Transf (AST/SGOT) 32 U/L (5-40) Alanine Aminotransferase (ALT/SGPT) 20 U/L (3-41) Alkaline Phosphatase 165 U/L (40-129) H Total Protein 5.8 g/dL (6.6-8.7) L Albumin 2.1 g/dL (3.5-5.2) L Globulin 3.7 g/dL Albumin/Globulin Ratio 0.5 (1.0-2.7) L Carcinoembryonic Antigen 4.0 ng/mL H Vitamin B12 Level 1958 pg/mL (211-946) H Folate Pending Thyroid Stimulating Hormone (TSH) 3.190 uIU/mL (0.300-4.500) Free Thyroxine 1.01 ng/dL (0.86-1.85) Random Amikacin Level 16.6 ug/mL Hepatitis A IgM Antibody Pending Hepatitis B Surface Antigen Pending Hepatitis B Core IgM Antibody Pending Hepatitis C Antibody Pending Arterial Blood pH 7.419 (7.350-7.450) Arterial Blood Partial Pressure CO2 30.1 mmHg (35.0-45.0) L Arterial Blood Partial Pressure O2 46.5 mmHg (75.0-100.0) Arterial Blood HCO3 19.0 mmol/L (22.0-26.0) L Arterial Blood Oxygen Saturation 79.5 % (92.0-98.0) L Arterial Blood Base Excess -4.8 Stewart Test Positive HIV (1&2) Antibody Rapid Negative (NEGATIVE) General Appearance: no apparent distress Neck: supple Respiratory: other - non reabreather Cardiovascular: normal rate Gastrointestinal: non tender, soft Skin: normal color Lymphatic: normal inspection, no adenopathy Current Medications Current Medications Medications (Trade) Dose Ordered Sig/Marcello Route PRN Reason Start Time Stop Time Status Last Admin Dose Admin Acetaminophen (Tylenol) 650 mg Q4H PRN ORAL fever 09/15/16 10:45 10/15/16 10:44 Albuterol/ Ipratropium 3 ml 3 ml EVERY 4 HOURS PRN HHN Shortness of Breath 09/15/16 10:45 09/20/16 10:44 Amikacin Protocol (Amikacin pharmacy to dose) 1 ea DAILY PRN MISC . 09/15/16 14:45 10/15/16 14:44 Amikacin Sulfate 1000 mg/Sodium Chloride 104 ml @ 200 mls/hr Q24H IV 09/15/16 17:00 09/22/16 16:59 09/15/16 17:23 Dextrose (D5W 1000ml) 1,000 ml @ 75 mls/hr [id number] IV 09/16/16 09:45 10/16/16 09:44 09/16/16 09:53 Ertapenem 1 gm/ Sodium Chloride 100 ml @ 100 mls/hr Q24H IV 09/15/16 16:00 09/20/16 15:59 09/15/16 15:47 Lactulose (Cephulac) 30 gm THREE TIMES A DAY ORAL 09/16/16 13:00 10/16/16 12:59 09/16/16 13:55 Lorazepam (Ativan 2mg/ml 1ml) 2 mg EVERY 2 HOURS PRN IV For Anxiety 09/15/16 10:45 09/22/16 10:44 Morphine Sulfate (Morphine Sulfate) 4 mg EVERY 4 HOURS PRN IVP Severe Pain (Pain Scale 7-10) 09/15/16 10:45 09/22/16 10:44 Ondansetron HCl (Zofran) 4 mg Q6H PRN IVP Nausea & Vomiting 09/15/16 10:45 10/15/16 10:44 Pantoprazole 40 mg 40 mg DAILY IVP 09/15/16 16:00 10/15/16 15:59 09/16/16 08:33 Polyethylene Glycol (Miralax) 17 gm DAILYPRN PRN ORAL Constipation 09/15/16 10:45 10/15/16 10:44 Vancomycin HCl (Vanco rx to dose) 1 ea DAILY PRN MISC . 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 Tomas. Thank you for referring this patient, we will follow. Christel Griffin N.P. Sep 16, 2016 14:07
--- NOTE | 2016-09-16 16:53 | General Progress Note ---
Assessment/Plan Problem List: (1) Heart failure ICD Codes: I50.9 - Heart failure, unspecified SNOMED: 24930089 Qualifiers: Qualified Codes: I50.33 - Acute on chronic diastolic (congestive) heart failure (2) Sepsis ICD Codes: A41.9 - Sepsis, unspecified organism SNOMED: 48104904 (3) Acute respiratory failure ICD Codes: J96.00 - Acute respiratory failure, unspecified whether with hypoxia or hypercapnia SNOMED: 21352110 Qualifiers: Qualified Codes: J96.01 - Acute respiratory failure with hypoxia (4) Liver cirrhosis ICD Codes: K74.60 - Unspecified cirrhosis of liver SNOMED: 98576741 Qualifiers: Qualified Codes: K70.31 - Alcoholic cirrhosis of liver with ascites (5) Respiratory distress ICD Codes: R06.00 - Dyspnea, unspecified SNOMED: 109292873 (6) Anemia ICD Codes: D64.9 - Anemia, unspecified SNOMED: 357327649 (7) Hypoalbuminemia ICD Codes: E88.09 - Other disorders of plasma-protein metabolism, not elsewhere classified SNOMED: 981536205 Status: progressing Assessment/Plan afebrile vitals stable no acute events resp failure pna sepsis abx per id Subjective ROS Limited/Unobtainable: Yes Allergies: Coded Allergies: No Known Allergies (Unverified , 09/15/16) Objective Last 24 Hour Vital Signs Date Time Temp Pulse Resp B/P Pulse Ox O2 Delivery O2 Flow Rate FiO2 09/16/16 15:00 90 16 114/60 100 Mechanical Ventilator 40 09/16/16 14:57 87 18 40 09/16/16 14:00 87 17 96/50 100 Mechanical Ventilator 40 09/16/16 13:25 85 19 40 09/16/16 13:03 85 17 106/52 100 Mechanical Ventilator 40 09/16/16 12:33 40 09/16/16 12:00 87 09/16/16 12:00 97.4 84 16 98/51 100 Mechanical Ventilator 40 09/16/16 11:05 87 17 40 09/16/16 11:00 86 16 93/55 100 Mechanical Ventilator 40 09/16/16 10:07 87 16 110/52 100 Mechanical Ventilator 40 09/16/16 09:09 90 16 94/46 100 Mechanical Ventilator 40 09/16/16 08:45 88 18 40 09/16/16 08:11 93 09/16/16 08:07 97.3 92 20 94/53 100 Mechanical Ventilator 40 09/16/16 08:03 40 09/16/16 07:02 94 16 107/60 100 Mechanical Ventilator 40 09/16/16 06:52 95 17 40 09/16/16 06:00 93 16 111/57 100 Mechanical Ventilator 40 09/16/16 05:10 98 20 40 09/16/16 05:00 96 16 97/49 98 Mechanical Ventilator 40 09/16/16 04:17 40 09/16/16 04:16 103 09/16/16 04:00 99.5 103 16 105/57 98 Mechanical Ventilator 40 09/16/16 03:10 102 20 40 09/16/16 03:00 103 18 107/62 100 Mechanical Ventilator 40 09/16/16 02:06 100 16 113/62 100 Mechanical Ventilator 40 09/16/16 01:18 103 21 40 09/16/16 01:00 98 16 111/61 100 Mechanical Ventilator 40 09/16/16 00:15 40 09/16/16 00:13 99 09/16/16 00:00 98.9 99 16 120/69 100 Mechanical Ventilator 40 09/15/16 23:29 100 22 40 09/15/16 23:00 99 16 106/62 100 Mechanical Ventilator 40 09/15/16 22:00 96 16 99/54 100 Mechanical Ventilator 40 09/15/16 21:10 94 17 40 09/15/16 21:00 98.7 98 19 107/58 100 Mechanical Ventilator 40 09/15/16 20:00 99.2 96 20 104/54 100 Mechanical Ventilator 40 09/15/16 20:00 40 09/15/16 20:00 97 09/15/16 19:25 95 17 40 09/15/16 19:00 97 16 104/56 100 Mechanical Ventilator 40 09/15/16 18:00 96 18 99/59 100 Mechanical Ventilator 40 09/15/16 17:00 99 18 96/56 100 Mechanical Ventilator 40 Intake and Output 09/15/16 09/16/16 19:00 07:00 Intake Total 3804 ml 770 ml Output Total 450 ml 650 ml Balance 3354 ml 120 ml Intake IV Total 554 ml 770 ml Other 3250 ml Output Urine Total 450 ml 650 ml Laboratory Tests 09/16/16 05:00: White Blood Count 14.2H, Red Blood Count 2.43L, Hemoglobin 8.0L, Hematocrit 24.9L, Mean Corpuscular Volume 102H, Mean Corpuscular Hemoglobin 33.1H, Mean Corpuscular Hemoglobin Concent 32.3, Red Cell Distribution Width 21.1H, Platelet Count 44L, Mean Platelet Volume 9.5, Neutrophils (%) (Auto) , Lymphocytes (%) (Auto) , Monocytes (%) (Auto) , Eosinophils (%) (Auto) , Basophils (%) (Auto) , Differential Total Cells Counted 100, Neutrophils % ( Manual) 83H, Lymphocytes % (Manual) 7L, Monocytes % (Manual) 4, Eosinophils % ( Manual) 3, Basophils % (Manual) 1, Band Neutrophils 2, Platelet Estimate DecreasedL, Platelet Morphology Normal, Anisocytosis 2+, Macrocytosis 1+, Reticulocyte Count 1.7, Prothrombin Time 18.1H, Prothromb Time International Ratio 1.7H, Sodium Level 153H, Potassium Level 3.8, Chloride Level 120H, Carbon Dioxide Level 20, Anion Gap 13, Blood Urea Nitrogen 29H, Creatinine 1.2, Estimat Glomerular Filtration Rate > 60, Glucose Level 111H, Calcium Level 7.7L , Iron Level 38L, Total Iron Binding Capacity 59L, Percent Iron Saturation 64H, Unsaturated Iron Binding 21L, Ferritin 406H, Total Bilirubin 4.2H, Direct Bilirubin 2.5H, Aspartate Amino Transf (AST/SGOT) 32, Alanine Aminotransferase ( ALT/SGPT) 20, Alkaline Phosphatase 165H, Total Protein 5.8L, Albumin 2.1L, Globulin 3.7, Albumin/Globulin Ratio 0.5L, Carcinoembryonic Antigen 4.0H, Vitamin B12 Level 1958H, Folate [Pending], Thyroid Stimulating Hormone (TSH) 3.190, Free Thyroxine 1.01, Random Amikacin Level 16.6, Hepatitis A IgM Antibody [Pending], Hepatitis B Surface Antigen [Pending], Hepatitis B Core IgM Antibody [Pending], Hepatitis C Antibody [Pending] 09/16/16 08:24: Arterial Blood pH 7.419, Arterial Blood Partial Pressure CO2 30.1L, Arterial Blood Partial Pressure O2 46.5*L, Arterial Blood HCO3 19.0L, Arterial Blood Oxygen Saturation 79.5L, Arterial Blood Base Excess -4.8, Stewart Test Positive 09/16/16 08:45: HIV (1&2) Antibody Rapid Negative Height (Feet): 5 Height (Inches): 6.00 Weight (Pounds): 140 General Appearance: lethargic Respiratory/Chest: rhonchi - bilaterally Abdomen: soft Regina Banda MD Sep 16, 2016 16:53
--- NOTE | 2016-09-16 17:11 | Diagnostic Imaging Report ---
Indications: Ascites Technique: Ultrasound used to localize optimal puncture site. Sterile prepping and draping right lower quadrant. Local anesthesia with 1% lidocaine. Under real-time ultrasound guidance, puncture peritoneal space using paracentesis needle. Stylet removed. Catheter placed to vacuum bottle suction. Total 5.7 liters of area low fluid aspirated. Patient tolerated procedure well, without immediate complication. Findings: Followup sonography demonstrates near-complete resolution of peritoneal fluid. Impression: Successful ultrasound-guided paracentesis, yielding 5.7 liters of clear yellow fluid
--- NOTE | 2016-09-16 17:57 | Infectious Diseases Prog Note ---
Assessment/Plan Problems: (1) Fungemia Assessment & Plan: with blood culture positive for yeast x 2, will start micafungin empirically and await identification, all lines and catheters need to be removed, D/W nurse at the bedside (2) Acute respiratory failure Assessment & Plan: intubated, on mechanical ventilation, pulmonary is following (3) Sepsis Assessment & Plan: on wide spectrum antibiotics , await culture (4) Heart failure Assessment & Plan: consider diuresis, consult cardiology (5) Liver cirrhosis Assessment & Plan: supportive care , consult GI Subjective ROS Limited/Unobtainable: Yes Allergies: Coded Allergies: No Known Allergies (Unverified , 09/15/16) Subjective he is intubated and sedated on mechanical ventilation , not in distress. Objective Vital Signs Last 24 Hour Vital Signs Date Time Temp Pulse Resp B/P Pulse Ox O2 Delivery O2 Flow Rate FiO2 09/16/16 17:00 90 16 97/55 100 Mechanical Ventilator 40 09/16/16 16:30 87 21 40 09/16/16 16:00 40 09/16/16 16:00 89 09/16/16 16:00 98.1 88 18 98/60 100 Mechanical Ventilator 40 09/16/16 15:00 90 16 114/60 100 Mechanical Ventilator 40 09/16/16 14:57 87 18 40 09/16/16 14:00 87 17 96/50 100 Mechanical Ventilator 40 09/16/16 13:25 85 19 40 09/16/16 13:03 85 17 106/52 100 Mechanical Ventilator 40 09/16/16 12:33 40 09/16/16 12:00 87 09/16/16 12:00 97.4 84 16 98/51 100 Mechanical Ventilator 40 09/16/16 11:05 87 17 40 09/16/16 11:00 86 16 93/55 100 Mechanical Ventilator 40 09/16/16 10:07 87 16 110/52 100 Mechanical Ventilator 40 09/16/16 09:09 90 16 94/46 100 Mechanical Ventilator 40 09/16/16 08:45 88 18 40 09/16/16 08:11 93 09/16/16 08:07 97.3 92 20 94/53 100 Mechanical Ventilator 40 09/16/16 08:03 40 09/16/16 07:02 94 16 107/60 100 Mechanical Ventilator 40 09/16/16 06:52 95 17 40 09/16/16 06:00 93 16 111/57 100 Mechanical Ventilator 40 09/16/16 05:10 98 20 40 09/16/16 05:00 96 16 97/49 98 Mechanical Ventilator 40 09/16/16 04:17 40 09/16/16 04:16 103 09/16/16 04:00 99.5 103 16 105/57 98 Mechanical Ventilator 40 09/16/16 03:10 102 20 40 09/16/16 03:00 103 18 107/62 100 Mechanical Ventilator 40 09/16/16 02:06 100 16 113/62 100 Mechanical Ventilator 40 09/16/16 01:18 103 21 40 09/16/16 01:00 98 16 111/61 100 Mechanical Ventilator 40 09/16/16 00:15 40 09/16/16 00:13 99 09/16/16 00:00 98.9 99 16 120/69 100 Mechanical Ventilator 40 09/15/16 23:29 100 22 40 09/15/16 23:00 99 16 106/62 100 Mechanical Ventilator 40 09/15/16 22:00 96 16 99/54 100 Mechanical Ventilator 40 09/15/16 21:10 94 17 40 09/15/16 21:00 98.7 98 19 107/58 100 Mechanical Ventilator 40 09/15/16 20:00 99.2 96 20 104/54 100 Mechanical Ventilator 40 09/15/16 20:00 40 09/15/16 20:00 97 09/15/16 19:25 95 17 40 09/15/16 19:00 97 16 104/56 100 Mechanical Ventilator 40 09/15/16 18:00 96 18 99/59 100 Mechanical Ventilator 40 Height (Feet): 5 Height (Inches): 6.00 Weight (Pounds): 140 General Appearance: WD/WN, no acute distress HEENT: normocephalic, atraumatic, anicteric, supple, no JVD Respiratory/Chest: chest wall non-tender, normal breath sounds, no respiratory distress, no accessory muscle use, decreased breath sounds, crackles/rales Cardiovascular: normal peripheral pulses, normal rate, regular rhythm, no gallop/murmur Abdomen: normal bowel sounds, soft, non tender, no organomegaly, non distended , no mass Extremities: no cyanosis, no clubbing Skin: no rash, no lesions, no ulcers Microbiology Date/Time Source Procedure Growth Status 09/15/16 09:00 Blood Blood Culture - Preliminary Resulted 09/15/16 09:00 Blood Blood Culture - Preliminary Resulted 09/15/16 13:00 Sputum Gram Stain - Final Resulted 09/15/16 13:00 Sputum Sputum Culture Pending Resulted 09/15/16 09:00 Urine,Clean Catch Urine Culture - Preliminary Resulted Laboratory Tests Test 09/16/16 05:00 09/16/16 08:24 09/16/16 08:45 White Blood Count 14.2 K/UL (4.8-10.8) H Red Blood Count 2.43 M/UL (4.70-6.10) L Hemoglobin 8.0 G/DL (14.2-18.0) L Hematocrit 24.9 % (42.0-52.0) L Mean Corpuscular Volume 102 FL (80-99) H Mean Corpuscular Hemoglobin 33.1 PG (27.0-31.0) H Mean Corpuscular Hemoglobin Concent 32.3 G/DL (32.0-36.0) Red Cell Distribution Width 21.1 % (11.6-14.8) H Platelet Count 44 K/UL (150-450) L Mean Platelet Volume 9.5 FL (6.5-10.1) Neutrophils (%) (Auto) % (45.0-75.0) Lymphocytes (%) (Auto) % (20.0-45.0) Monocytes (%) (Auto) % (1.0-10.0) Eosinophils (%) (Auto) % (0.0-3.0) Basophils (%) (Auto) % (0.0-2.0) Differential Total Cells Counted 100 Neutrophils % (Manual) 83 % (45-75) H Lymphocytes % (Manual) 7 % (20-45) L Monocytes % (Manual) 4 % (1-10) Eosinophils % (Manual) 3 % (0-3) Basophils % (Manual) 1 % (0-2) Band Neutrophils 2 % (0-8) Platelet Estimate Decreased L Platelet Morphology Normal Anisocytosis 2+ Macrocytosis 1+ Reticulocyte Count 1.7 % (0.0-2.0) Prothrombin Time 18.1 SEC (9.30-11.50) H Prothromb Time International Ratio 1.7 (0.9-1.1) H Sodium Level 153 mEQ/L (135-145) H Potassium Level 3.8 mEQ/L (3.4-4.9) Chloride Level 120 mEQ/L (98-107) H Carbon Dioxide Level 20 mEQ/L (20-30) Anion Gap 13 (5-15) Blood Urea Nitrogen 29 mg/dL (7-23) H Creatinine 1.2 mg/dL (0.7-1.2) Estimat Glomerular Filtration Rate > 60 mL/min (>60) Glucose Level 111 mg/dL (74-106) H Calcium Level 7.7 mg/dL (8.6-10.2) L Iron Level 38 ug/dL (59-158) L Total Iron Binding Capacity 59 ug/dL (250-400) L Percent Iron Saturation 64 % (15-50) H Unsaturated Iron Binding 21 ug/dL (112-346) L Ferritin 406 ng/mL (10-230) H Total Bilirubin 4.2 mg/dL (0.0-1.2) H Direct Bilirubin 2.5 mg/dL (0.1-0.3) H Aspartate Amino Transf (AST/SGOT) 32 U/L (5-40) Alanine Aminotransferase (ALT/SGPT) 20 U/L (3-41) Alkaline Phosphatase 165 U/L (40-129) H Total Protein 5.8 g/dL (6.6-8.7) L Albumin 2.1 g/dL (3.5-5.2) L Globulin 3.7 g/dL Albumin/Globulin Ratio 0.5 (1.0-2.7) L Carcinoembryonic Antigen 4.0 ng/mL H Vitamin B12 Level 1958 pg/mL (211-946) H Folate Pending Thyroid Stimulating Hormone (TSH) 3.190 uIU/mL (0.300-4.500) Free Thyroxine 1.01 ng/dL (0.86-1.85) Random Amikacin Level 16.6 ug/mL Hepatitis A IgM Antibody Pending Hepatitis B Surface Antigen Pending Hepatitis B Core IgM Antibody Pending Hepatitis C Antibody Pending Arterial Blood pH 7.419 (7.350-7.450) Arterial Blood Partial Pressure CO2 30.1 mmHg (35.0-45.0) L Arterial Blood Partial Pressure O2 46.5 mmHg (75.0-100.0) Arterial Blood HCO3 19.0 mmol/L (22.0-26.0) L Arterial Blood Oxygen Saturation 79.5 % (92.0-98.0) L Arterial Blood Base Excess -4.8 Stewart Test Positive HIV (1&2) Antibody Rapid Negative (NEGATIVE) Current Medications Medications (Trade) Dose Ordered Sig/Marcello Route PRN Reason Start Time Stop Time Status Last Admin Dose Admin Acetaminophen (Tylenol) 650 mg Q4H PRN ORAL fever 09/15/16 10:45 10/15/16 10:44 Albuterol/ Ipratropium 3 ml 3 ml EVERY 4 HOURS PRN HHN Shortness of Breath 09/15/16 10:45 09/20/16 10:44 Amikacin Protocol (Amikacin pharmacy to dose) 1 ea DAILY PRN MISC . 09/15/16 14:45 10/15/16 14:44 Amikacin Sulfate 1000 mg/Sodium Chloride 104 ml @ 200 mls/hr Q24H IV 09/15/16 17:00 09/22/16 16:59 09/16/16 16:30 Dextrose (D5W 1000ml) 1,000 ml @ 75 mls/hr [id number] IV 09/16/16 09:45 10/16/16 09:44 09/16/16 09:53 Ertapenem 1 gm/ Sodium Chloride 100 ml @ 100 mls/hr Q24H IV 09/15/16 16:00 09/20/16 15:59 09/16/16 16:30 Lactulose 30 gm 30 gm THREE TIMES A DAY ORAL 09/16/16 13:00 10/16/16 12:59 09/16/16 17:34 Lorazepam (Ativan 2mg/ml 1ml) 2 mg EVERY 2 HOURS PRN IV For Anxiety 09/15/16 10:45 09/22/16 10:44 Micafungin Sodium/ Sodium Chloride (Mycamine/Sodium Chloride 100ml bag) 100 ml @ 100 mls/hr Q24H IVPB 09/16/16 16:00 09/23/16 15:59 09/16/16 16:47 Morphine Sulfate (Morphine Sulfate) 4 mg EVERY 4 HOURS PRN IVP Severe Pain (Pain Scale 7-10) 09/15/16 10:45 09/22/16 10:44 Ondansetron HCl (Zofran) 4 mg Q6H PRN IVP Nausea & Vomiting 09/15/16 10:45 10/15/16 10:44 Pantoprazole 40 mg 40 mg DAILY IVP 09/15/16 16:00 10/15/16 15:59 09/16/16 08:33 Polyethylene Glycol (Miralax) 17 gm DAILYPRN PRN ORAL Constipation 09/15/16 10:45 10/15/16 10:44 Vancomycin HCl (Vanco rx to dose) 1 ea DAILY PRN MISC . 09/15/16 14:45 10/15/16 14:44 Vancomycin HCl/ Dextrose (Vancomycin/D5W 250ml) 250 ml @ 167 mls/hr Q12HR IVPB 09/15/16 21:00 09/20/16 20:59 09/16/16 08:33 Tana Landeros M.D. Sep 16, 2016 17:57
--- NOTE | 2016-09-16 18:30 | Cardiac Electrophysiology PN ---
Assessment/Plan Assessment/Plan 1. Respiratory failure, on the ventilator, could be aspiration related. 2. Pericardial effusion. The echocardiogram showed ejection fraction of 50% to 55% with a small pericardial effusion and large posterior pleural effusion. 3. Episode of atrial fibrillation with rapid ventricular response. 4. Hypertension. 5. Cirrhosis of the liver. 6. DNR. 7. Thrombocytopenia likely secondary to cirrhosis. 8. Alcoholic liver disease. DW RN Subjective Subjective In ICU on vent. Unresponsive. Objective Last 24 Hour Vital Signs Date Time Temp Pulse Resp B/P Pulse Ox O2 Delivery O2 Flow Rate FiO2 09/16/16 17:00 90 16 97/55 100 Mechanical Ventilator 40 09/16/16 16:30 87 21 40 09/16/16 16:00 40 09/16/16 16:00 89 09/16/16 16:00 98.1 88 18 98/60 100 Mechanical Ventilator 40 09/16/16 15:00 90 16 114/60 100 Mechanical Ventilator 40 09/16/16 14:57 87 18 40 09/16/16 14:00 87 17 96/50 100 Mechanical Ventilator 40 09/16/16 13:25 85 19 40 09/16/16 13:03 85 17 106/52 100 Mechanical Ventilator 40 09/16/16 12:33 40 09/16/16 12:00 87 09/16/16 12:00 97.4 84 16 98/51 100 Mechanical Ventilator 40 09/16/16 11:05 87 17 40 09/16/16 11:00 86 16 93/55 100 Mechanical Ventilator 40 09/16/16 10:07 87 16 110/52 100 Mechanical Ventilator 40 09/16/16 09:09 90 16 94/46 100 Mechanical Ventilator 40 09/16/16 08:45 88 18 40 09/16/16 08:11 93 09/16/16 08:07 97.3 92 20 94/53 100 Mechanical Ventilator 40 09/16/16 08:03 40 09/16/16 07:02 94 16 107/60 100 Mechanical Ventilator 40 09/16/16 06:52 95 17 40 09/16/16 06:00 93 16 111/57 100 Mechanical Ventilator 40 09/16/16 05:10 98 20 40 09/16/16 05:00 96 16 97/49 98 Mechanical Ventilator 40 09/16/16 04:17 40 09/16/16 04:16 103 09/16/16 04:00 99.5 103 16 105/57 98 Mechanical Ventilator 40 09/16/16 03:10 102 20 40 09/16/16 03:00 103 18 107/62 100 Mechanical Ventilator 40 09/16/16 02:06 100 16 113/62 100 Mechanical Ventilator 40 09/16/16 01:18 103 21 40 09/16/16 01:00 98 16 111/61 100 Mechanical Ventilator 40 09/16/16 00:15 40 09/16/16 00:13 99 09/16/16 00:00 98.9 99 16 120/69 100 Mechanical Ventilator 40 09/15/16 23:29 100 22 40 09/15/16 23:00 99 16 106/62 100 Mechanical Ventilator 40 09/15/16 22:00 96 16 99/54 100 Mechanical Ventilator 40 09/15/16 21:10 94 17 40 09/15/16 21:00 98.7 98 19 107/58 100 Mechanical Ventilator 40 09/15/16 20:00 99.2 96 20 104/54 100 Mechanical Ventilator 40 09/15/16 20:00 40 09/15/16 20:00 97 09/15/16 19:25 95 17 40 09/15/16 19:00 97 16 104/56 100 Mechanical Ventilator 40 Intake and Output 09/15/16 09/16/16 19:00 07:00 Intake Total 3804 ml 770 ml Output Total 450 ml 650 ml Balance 3354 ml 120 ml Intake IV Total 554 ml 770 ml Other 3250 ml Output Urine Total 450 ml 650 ml Laboratory Tests Test 09/16/16 05:00 09/16/16 08:24 09/16/16 08:45 White Blood Count 14.2 K/UL (4.8-10.8) H Red Blood Count 2.43 M/UL (4.70-6.10) L Hemoglobin 8.0 G/DL (14.2-18.0) L Hematocrit 24.9 % (42.0-52.0) L Mean Corpuscular Volume 102 FL (80-99) H Mean Corpuscular Hemoglobin 33.1 PG (27.0-31.0) H Mean Corpuscular Hemoglobin Concent 32.3 G/DL (32.0-36.0) Red Cell Distribution Width 21.1 % (11.6-14.8) H Platelet Count 44 K/UL (150-450) L Mean Platelet Volume 9.5 FL (6.5-10.1) Neutrophils (%) (Auto) % (45.0-75.0) Lymphocytes (%) (Auto) % (20.0-45.0) Monocytes (%) (Auto) % (1.0-10.0) Eosinophils (%) (Auto) % (0.0-3.0) Basophils (%) (Auto) % (0.0-2.0) Differential Total Cells Counted 100 Neutrophils % (Manual) 83 % (45-75) H Lymphocytes % (Manual) 7 % (20-45) L Monocytes % (Manual) 4 % (1-10) Eosinophils % (Manual) 3 % (0-3) Basophils % (Manual) 1 % (0-2) Band Neutrophils 2 % (0-8) Platelet Estimate Decreased L Platelet Morphology Normal Anisocytosis 2+ Macrocytosis 1+ Reticulocyte Count 1.7 % (0.0-2.0) Prothrombin Time 18.1 SEC (9.30-11.50) H Prothromb Time International Ratio 1.7 (0.9-1.1) H Sodium Level 153 mEQ/L (135-145) H Potassium Level 3.8 mEQ/L (3.4-4.9) Chloride Level 120 mEQ/L (98-107) H Carbon Dioxide Level 20 mEQ/L (20-30) Anion Gap 13 (5-15) Blood Urea Nitrogen 29 mg/dL (7-23) H Creatinine 1.2 mg/dL (0.7-1.2) Estimat Glomerular Filtration Rate > 60 mL/min (>60) Glucose Level 111 mg/dL (74-106) H Calcium Level 7.7 mg/dL (8.6-10.2) L Iron Level 38 ug/dL (59-158) L Total Iron Binding Capacity 59 ug/dL (250-400) L Percent Iron Saturation 64 % (15-50) H Unsaturated Iron Binding 21 ug/dL (112-346) L Ferritin 406 ng/mL (10-230) H Total Bilirubin 4.2 mg/dL (0.0-1.2) H Direct Bilirubin 2.5 mg/dL (0.1-0.3) H Aspartate Amino Transf (AST/SGOT) 32 U/L (5-40) Alanine Aminotransferase (ALT/SGPT) 20 U/L (3-41) Alkaline Phosphatase 165 U/L (40-129) H Total Protein 5.8 g/dL (6.6-8.7) L Albumin 2.1 g/dL (3.5-5.2) L Globulin 3.7 g/dL Albumin/Globulin Ratio 0.5 (1.0-2.7) L Carcinoembryonic Antigen 4.0 ng/mL H Vitamin B12 Level 1958 pg/mL (211-946) H Folate Pending Thyroid Stimulating Hormone (TSH) 3.190 uIU/mL (0.300-4.500) Free Thyroxine 1.01 ng/dL (0.86-1.85) Random Amikacin Level 16.6 ug/mL Hepatitis A IgM Antibody Pending Hepatitis B Surface Antigen Pending Hepatitis B Core IgM Antibody Pending Hepatitis C Antibody Pending Arterial Blood pH 7.419 (7.350-7.450) Arterial Blood Partial Pressure CO2 30.1 mmHg (35.0-45.0) L Arterial Blood Partial Pressure O2 46.5 mmHg (75.0-100.0) Arterial Blood HCO3 19.0 mmol/L (22.0-26.0) L Arterial Blood Oxygen Saturation 79.5 % (92.0-98.0) L Arterial Blood Base Excess -4.8 Stewart Test Positive HIV (1&2) Antibody Rapid Negative (NEGATIVE) Microbiology Date/Time Source Procedure Growth Status 09/15/16 09:00 Blood Blood Culture - Preliminary Resulted 09/15/16 09:00 Blood Blood Culture - Preliminary Resulted 09/15/16 13:00 Sputum Gram Stain - Final Resulted 09/15/16 13:00 Sputum Sputum Culture Pending Resulted 09/15/16 09:00 Urine,Clean Catch Urine Culture - Preliminary Resulted Objective NECK: No JVD. He is orally intubated with OG-tube. LUNGS: Decreased breath sounds. CARDIOVASCULAR: Shows regular S1 and S2 with no gallop. ABDOMEN: Distended with ascites. EXTREMITIES: A 1+ pedal edema. FLORIN GALVIN Sep 16, 2016 18:30
[2016-09-16 21:48] LABS: APPEARANCE, BODY FLUID HAZY; BD FL VOLUME 24 mL
[2016-09-16 21:49] LABS: BD FL SOURCE PARACENTESIS; BODY FLUID NUCLEATED CELLS 15 /CUMM; BODY FLUID RBC 66 /CUMM; MONONUCLEAR WBC 87 %; POLYMORPHONUCLEAR WBC 6 %
[2016-09-17] VITALS (24 sets, daily range): BP systolic 85–118; BP diastolic 45–67
[2016-09-17 06:33] LABS: MEAN CORPUSCULAR HEMOGLOBIN 32.1 PG (27.0-31.0); MEAN CORPUSCULAR VOLUME 97 FL (80-99); MEAN PLATELET VOLUME 12.4 FL (6.5-10.1); PLATELET COUNT 36 K/UL (150-450); RED BLOOD COUNT 2.73 M/UL (4.70-6.10); RED CELL DISTRIBUTION WIDTH 21.2 % (11.6-14.8); WHITE BLOOD COUNT 12.6 K/UL (4.8-10.8)
[2016-09-17 06:47] LABS: ALBUMIN/GLOBULIN RATIO 0.4 (1.0-2.7); CALCIUM 7.3 mg/dL (8.6-10.2); CREATININE 1.8 mg/dL (0.7-1.2); GLOMERULAR FILTRATION RATE 38.6 mL/min (>60); MAGNESIUM 1.2 mg/dL (1.7-2.5); PHOSPHORUS 2.4 mg/dL (2.5-4.8); POTASSIUM 3.6 mEQ/L (3.4-4.9); TOTAL PROTEIN 5.6 g/dL (6.6-8.7)
[2016-09-17 07:02] LABS: BILIRUBIN,DIRECT 2.4 mg/dL (0.1-0.3)
[2016-09-17 07:24] LABS: ABG BASE EXCESS -3.1; ABG PCO2 29.2 mmHg (35.0-45.0)
[2016-09-17 07:25] LABS: ABG ALLEN TEST POSITIVE
[2016-09-17 08:09] LABS: ANISOCYTOSIS 2+; BAND NEUTROPHILS % (MANUAL) 0 % (0-8); BASOPHILS % (MANUAL) 0 % (0-2); EOSINOPHILS % (MANUAL) 2 % (0-3); HYPOCHROMASIA 1+; LYMPHOCYTES % (MANUAL) 15 % (20-45); NEUTROPHILS % (MANUAL) 76 % (45-75); PLATELET ESTIMATE DECREASED; PLATELET MORPHOLOGY NORMAL; TOTAL CELLS COUNTED 100
[2016-09-17] MEDS: Pantoprazole Inj IVP SCH (09:20)
[2016-09-17] MEDS: Lactulose 20gm/30ml UDC ORAL SCH ×3 (09:20→18:10)
--- NOTE | 2016-09-17 11:08 | Pulmonolgy Critical Care Note ---
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 risk management - Objective Last 24 Hour Vital Signs Date Time Temp Pulse Resp B/P Pulse Ox O2 Delivery O2 Flow Rate FiO2 09/17/16 10:00 82 21 100/50 100 Mechanical Ventilator 30 09/17/16 09:20 80 16 30 09/17/16 09:00 80 20 98/50 100 Mechanical Ventilator 30 09/17/16 08:00 98.2 80 21 94/49 100 Mechanical Ventilator 30 09/17/16 08:00 30 09/17/16 08:00 81 09/17/16 07:10 82 16 99/54 100 Mechanical Ventilator 30 09/17/16 06:57 82 16 30 09/17/16 06:00 82 17 95/53 100 Mechanical Ventilator 30 09/17/16 05:12 84 25 30 09/17/16 05:06 98.5 85 16 96/54 100 Mechanical Ventilator 30 09/17/16 04:00 84 09/17/16 04:00 35 09/17/16 04:00 84 19 99/54 100 Mechanical Ventilator 35 09/17/16 03:20 85 20 30 09/17/16 03:00 85 18 85/51 100 Mechanical Ventilator 40 09/17/16 02:00 88 16 91/49 100 Mechanical Ventilator 40 09/17/16 01:20 84 16 35 09/17/16 01:00 87 16 90/48 100 Mechanical Ventilator 40 09/17/16 00:09 40 09/17/16 00:09 89 09/17/16 00:07 98.3 89 16 98/53 100 Mechanical Ventilator 40 09/16/16 23:18 90 23 35 09/16/16 23:00 88 18 95/52 100 Mechanical Ventilator 40 09/16/16 22:00 86 18 89/48 99 Mechanical Ventilator 40 09/16/16 21:28 88 17 35 09/16/16 21:00 88 19 118/58 100 Mechanical Ventilator 40 09/16/16 20:00 97.9 87 18 95/46 100 Mechanical Ventilator 40 09/16/16 20:00 40 09/16/16 20:00 88 09/16/16 19:00 86 19 100/55 100 Mechanical Ventilator 40 09/16/16 18:55 86 18 35 09/16/16 18:00 88 19 92/51 100 Mechanical Ventilator 40 09/16/16 17:00 90 16 97/55 100 Mechanical Ventilator 40 09/16/16 16:30 87 21 40 09/16/16 16:00 40 09/16/16 16:00 89 09/16/16 16:00 98.1 88 18 98/60 100 Mechanical Ventilator 40 09/16/16 15:00 90 16 114/60 100 Mechanical Ventilator 40 09/16/16 14:57 87 18 40 09/16/16 14:00 87 17 96/50 100 Mechanical Ventilator 40 09/16/16 13:25 85 19 40 09/16/16 13:03 85 17 106/52 100 Mechanical Ventilator 40 09/16/16 12:33 40 09/16/16 12:00 87 09/16/16 12:00 97.4 84 16 98/51 100 Mechanical Ventilator 40 Status: obtunded Condition: critical HEENT: atraumatic Lungs: clear Heart: HR/BP stable, HR/BP unstable Abdomen: soft, non-tender Extremities: no C/C/E, edema Micro: Microbiology Date/Time Source Procedure Growth Status 09/15/16 09:00 Blood Blood Culture - Preliminary Yeast Species Resulted 09/15/16 09:00 Blood Blood Culture - Preliminary Yeast Species Resulted 09/16/16 12:00 Ascities Fluid Gram Stain - Final Resulted 09/16/16 12:00 Ascities Fluid Body Fluid Culture - Preliminary NO GROWTH Resulted 09/15/16 13:00 Sputum Gram Stain - Final Resulted 09/15/16 13:00 Sputum Culture - Preliminary Gram Negative Bacillus 1 Resulted 09/15/16 09:00 Nasal Nares MRSA Culture - Final NO METHICILLIN RESISTANT STAPH AUREUS... Complete 09/15/16 09:00 Urine,Clean Catch Urine Culture - Preliminary Yeast Species Resulted 09/16/16 10:10 Arm Right Catheter Tip Culture - Preliminary Resulted 09/15/16 09:00 Rectum VRE Culture - Final Enterococcus Faecium - Vre Complete Accucheck: 103 Critical Care - Subjective ROS Limited/Unobtainable: No Condition: critical EKG Rhythm: Sinus Rhythm FI02: 30 Vent Support Breath Rate: 16 Vent Support Mode: AC Vent Tidal Volume: 500 Sputum Amount: Moderate PEEP: 0 PIP: 23 Fluids: NS 75 cc.hour I&O: Intake and Output 09/16/16 09/17/16 19:00 07:00 Intake Total 1354 ml 1125 ml Output Total 400 ml 6295 ml Balance 954 ml -5170 ml Intake IV Total 1104 ml 1125 ml Blood Product 250 ml Output Urine Total 400 ml 595 ml Other 5700 ml ET-Tube: 7.5 ET Position: 23 Labs: Laboratory Tests Test 09/16/16 12:00 09/16/16 20:00 09/17/16 04:00 09/17/16 06:00 Body Fluid Source Paracentesis Body Fluid Volume 24 mL Body Fluid Appearance Hazy Body Fluid RBC 66 /CUMM Body Fluid Total Nucleated Cells 15 /CUMM Body Fluid Polynuclear WBCs (%) 6 % Body Fluid Mononuclear WBCs (%) 87 % Body Fluid Mesothelial Cells (%) 7 % Body Fluid Glucose Pending Body Fluid Total Protein Pending Body Fluid Albumin Pending Vancomycin Level Trough 24.0 ug/mL (5.0-12.0) H Arterial Blood pH 7.456 (7.350-7.450) Arterial Blood Partial Pressure CO2 29.2 mmHg (35.0-45.0) L Arterial Blood Partial Pressure O2 88.8 mmHg (75.0-100.0) Arterial Blood HCO3 20.1 mmol/L (22.0-26.0) L Arterial Blood Oxygen Saturation 95.9 % (92.0-98.0) Arterial Blood Base Excess -3.1 Stewart Test Positive White Blood Count 12.6 K/UL (4.8-10.8) H Red Blood Count 2.73 M/UL (4.70-6.10) L Hemoglobin 8.8 G/DL (14.2-18.0) L Hematocrit 26.6 % (42.0-52.0) L Mean Corpuscular Volume 97 FL (80-99) Mean Corpuscular Hemoglobin 32.1 PG (27.0-31.0) H Mean Corpuscular Hemoglobin Concent 33.0 G/DL (32.0-36.0) Red Cell Distribution Width 21.2 % (11.6-14.8) H Platelet Count 36 K/UL (150-450) L Mean Platelet Volume 12.4 FL (6.5-10.1) H Neutrophils (%) (Auto) % (45.0-75.0) Lymphocytes (%) (Auto) % (20.0-45.0) Monocytes (%) (Auto) % (1.0-10.0) Eosinophils (%) (Auto) % (0.0-3.0) Basophils (%) (Auto) % (0.0-2.0) Differential Total Cells Counted 100 Neutrophils % (Manual) 76 % (45-75) H Lymphocytes % (Manual) 15 % (20-45) L Monocytes % (Manual) 7 % (1-10) Eosinophils % (Manual) 2 % (0-3) Basophils % (Manual) 0 % (0-2) Band Neutrophils 0 % (0-8) Platelet Estimate Decreased L Platelet Morphology Normal Hypochromasia 1+ Anisocytosis 2+ Reticulocyte Count Pending Haptoglobin Pending D-Dimer Pending Sodium Level 148 mEQ/L (135-145) H Potassium Level 3.6 mEQ/L (3.4-4.9) Chloride Level 116 mEQ/L (98-107) H Carbon Dioxide Level 19 mEQ/L (20-30) L Anion Gap 13 (5-15) Blood Urea Nitrogen 33 mg/dL (7-23) H Creatinine 1.8 mg/dL (0.7-1.2) H Estimat Glomerular Filtration Rate 38.6 mL/min (>60) Glucose Level 134 mg/dL (74-106) H Calcium Level 7.3 mg/dL (8.6-10.2) L Phosphorus Level 2.4 mg/dL (2.5-4.8) L Magnesium Level 1.2 mg/dL (1.7-2.5) L Total Bilirubin 3.9 mg/dL (0.0-1.2) H Direct Bilirubin 2.4 mg/dL (0.1-0.3) H Aspartate Amino Transf (AST/SGOT) 35 U/L (5-40) Alanine Aminotransferase (ALT/SGPT) 18 U/L (3-41) Alkaline Phosphatase 142 U/L (40-129) H Ammonia 60 umol/L (16-60) Lactate Dehydrogenase Pending Total Protein 5.6 g/dL (6.6-8.7) L Albumin 1.7 g/dL (3.5-5.2) L Globulin 3.9 g/dL Albumin/Globulin Ratio 0.4 (1.0-2.7) L Test 09/17/16 09:00 Random Vancomycin Level 19.6 ug/mL KALPESH ALANIZ Sep 17, 2016 11:08
[2016-09-17 11:24] LABS: LACTATE DEHYDROGENASE 218 U/L (135-230)
[2016-09-17 11:26] LABS: PATH BLOOD SMEAR/OMC SENT TO PATHOLOGIST
--- NOTE | 2016-09-17 12:06 | Diagnostic Imaging Report ---
Indication: DYSPNEA Technique: One view of the chest Comparison: 09/15/2016 Findings: Endotracheal tube, right jugular central venous catheter, nasogastric tube remain in stable satisfactory positions. The left lung is now reaerated, although there is persistent consolidation and/or atelectasis left lung base. There may be some pleural fluid as well. There is persistent right-sided pleural effusion and likely underlying basilar parenchymal disease Impression: Interim reaeration of the left lung, presumably resolution of atelectasis. There is persistent parenchymal disease and possibly pleural fluid at the left lung base Persistent right basilar pleural fluid and parenchymal disease
[2016-09-17 12:23] LABS: INR 1.8 (0.9-1.1); PROTHROMBIN TIME 18.3 SEC (9.30-11.50)
--- NOTE | 2016-09-17 12:49 | GI Progress Note ---
Assessment/Plan Problems: (1) Hypoalbuminemia ICD Codes: E88.09 - Other disorders of plasma-protein metabolism, not elsewhere classified SNOMED: 895635070 (2) Anemia ICD Codes: D64.9 - Anemia, unspecified SNOMED: 623960956 (3) Respiratory distress ICD Codes: R06.00 - Dyspnea, unspecified SNOMED: 981312686 (4) Liver cirrhosis ICD Codes: K74.60 - Unspecified cirrhosis of liver SNOMED: 01469066 Qualifiers: Qualified Codes: K70.31 - Alcoholic cirrhosis of liver with ascites (5) DNR (do not resuscitate) ICD Codes: Z66 - Do not resuscitate SNOMED: 213345085 (6) Sepsis ICD Codes: A41.9 - Sepsis, unspecified organism SNOMED: 45424912 (7) Acute respiratory failure ICD Codes: J96.00 - Acute respiratory failure, unspecified whether with hypoxia or hypercapnia SNOMED: 61143327 Qualifiers: Qualified Codes: J96.01 - Acute respiratory failure with hypoxia Status: unchanged Status Narrative Discussed with Dr. Tomas Assessment/Plan elevated iron levels OB stool uncollected monitor H&H, transfuse prn PPI abd U/S + paracentesis fu hep panel >> Hep C positive monitor LFTs ammonia WNL dietary consult fu labs Subjective Subjective limited Objective Last 24 Hour Vital Signs Date Time Temp Pulse Resp B/P Pulse Ox O2 Delivery O2 Flow Rate FiO2 09/17/16 11:09 78 17 30 09/17/16 11:00 77 20 99/54 100 Mechanical Ventilator 30 09/17/16 10:00 82 21 100/50 100 Mechanical Ventilator 30 09/17/16 09:20 80 16 30 09/17/16 09:00 80 20 98/50 100 Mechanical Ventilator 30 09/17/16 08:00 98.2 80 21 94/49 100 Mechanical Ventilator 30 09/17/16 08:00 30 09/17/16 08:00 81 09/17/16 07:10 82 16 99/54 100 Mechanical Ventilator 30 09/17/16 06:57 82 16 30 09/17/16 06:00 82 17 95/53 100 Mechanical Ventilator 30 09/17/16 05:12 84 25 30 09/17/16 05:06 98.5 85 16 96/54 100 Mechanical Ventilator 30 09/17/16 04:00 84 09/17/16 04:00 35 09/17/16 04:00 84 19 99/54 100 Mechanical Ventilator 35 09/17/16 03:20 85 20 30 09/17/16 03:00 85 18 85/51 100 Mechanical Ventilator 40 09/17/16 02:00 88 16 91/49 100 Mechanical Ventilator 40 09/17/16 01:20 84 16 35 09/17/16 01:00 87 16 90/48 100 Mechanical Ventilator 40 09/17/16 00:09 40 09/17/16 00:09 89 09/17/16 00:07 98.3 89 16 98/53 100 Mechanical Ventilator 40 09/16/16 23:18 90 23 35 09/16/16 23:00 88 18 95/52 100 Mechanical Ventilator 40 09/16/16 22:00 86 18 89/48 99 Mechanical Ventilator 40 09/16/16 21:28 88 17 35 09/16/16 21:00 88 19 118/58 100 Mechanical Ventilator 40 09/16/16 20:00 97.9 87 18 95/46 100 Mechanical Ventilator 40 09/16/16 20:00 40 09/16/16 20:00 88 09/16/16 19:00 86 19 100/55 100 Mechanical Ventilator 40 09/16/16 18:55 86 18 35 09/16/16 18:00 88 19 92/51 100 Mechanical Ventilator 40 09/16/16 17:00 90 16 97/55 100 Mechanical Ventilator 40 09/16/16 16:30 87 21 40 09/16/16 16:00 40 09/16/16 16:00 89 09/16/16 16:00 98.1 88 18 98/60 100 Mechanical Ventilator 40 09/16/16 15:00 90 16 114/60 100 Mechanical Ventilator 40 09/16/16 14:57 87 18 40 09/16/16 14:00 87 17 96/50 100 Mechanical Ventilator 40 09/16/16 13:25 85 19 40 09/16/16 13:03 85 17 106/52 100 Mechanical Ventilator 40 Intake and Output 09/16/16 09/17/16 19:00 07:00 Intake Total 1354 ml 1125 ml Output Total 400 ml 6295 ml Balance 954 ml -5170 ml Intake IV Total 1104 ml 1125 ml Blood Product 250 ml Output Urine Total 400 ml 595 ml Other 5700 ml Laboratory Tests Test 09/16/16 20:00 09/17/16 04:00 09/17/16 06:00 09/17/16 09:00 Vancomycin Level Trough 24.0 ug/mL (5.0-12.0) H Arterial Blood pH 7.456 (7.350-7.450) Arterial Blood Partial Pressure CO2 29.2 mmHg (35.0-45.0) L Arterial Blood Partial Pressure O2 88.8 mmHg (75.0-100.0) Arterial Blood HCO3 20.1 mmol/L (22.0-26.0) L Arterial Blood Oxygen Saturation 95.9 % (92.0-98.0) Arterial Blood Base Excess -3.1 Stewart Test Positive White Blood Count 12.6 K/UL (4.8-10.8) H Red Blood Count 2.73 M/UL (4.70-6.10) L Hemoglobin 8.8 G/DL (14.2-18.0) L Hematocrit 26.6 % (42.0-52.0) L Mean Corpuscular Volume 97 FL (80-99) Mean Corpuscular Hemoglobin 32.1 PG (27.0-31.0) H Mean Corpuscular Hemoglobin Concent 33.0 G/DL (32.0-36.0) Red Cell Distribution Width 21.2 % (11.6-14.8) H Platelet Count 36 K/UL (150-450) L Mean Platelet Volume 12.4 FL (6.5-10.1) H Neutrophils (%) (Auto) % (45.0-75.0) Lymphocytes (%) (Auto) % (20.0-45.0) Monocytes (%) (Auto) % (1.0-10.0) Eosinophils (%) (Auto) % (0.0-3.0) Basophils (%) (Auto) % (0.0-2.0) Differential Total Cells Counted 100 Neutrophils % (Manual) 76 % (45-75) H Lymphocytes % (Manual) 15 % (20-45) L Monocytes % (Manual) 7 % (1-10) Eosinophils % (Manual) 2 % (0-3) Basophils % (Manual) 0 % (0-2) Band Neutrophils 0 % (0-8) Platelet Estimate Decreased L Platelet Morphology Normal Hypochromasia 1+ Anisocytosis 2+ Reticulocyte Count 1.0 % (0.0-2.0) Haptoglobin 53 mg/dL (30-200) D-Dimer 6090 ng/mL (<500) H Sodium Level 148 mEQ/L (135-145) H Potassium Level 3.6 mEQ/L (3.4-4.9) Chloride Level 116 mEQ/L (98-107) H Carbon Dioxide Level 19 mEQ/L (20-30) L Anion Gap 13 (5-15) Blood Urea Nitrogen 33 mg/dL (7-23) H Creatinine 1.8 mg/dL (0.7-1.2) H Estimat Glomerular Filtration Rate 38.6 mL/min (>60) Glucose Level 134 mg/dL (74-106) H Calcium Level 7.3 mg/dL (8.6-10.2) L Phosphorus Level 2.4 mg/dL (2.5-4.8) L Magnesium Level 1.2 mg/dL (1.7-2.5) L Total Bilirubin 3.9 mg/dL (0.0-1.2) H Direct Bilirubin 2.4 mg/dL (0.1-0.3) H Aspartate Amino Transf (AST/SGOT) 35 U/L (5-40) Alanine Aminotransferase (ALT/SGPT) 18 U/L (3-41) Alkaline Phosphatase 142 U/L (40-129) H Ammonia 60 umol/L (16-60) Lactate Dehydrogenase 218 U/L (135-230) Total Protein 5.6 g/dL (6.6-8.7) L Albumin 1.7 g/dL (3.5-5.2) L Globulin 3.9 g/dL Albumin/Globulin Ratio 0.4 (1.0-2.7) L Random Vancomycin Level 19.6 ug/mL Test 09/17/ 11:00 Prothrombin Time 18.3 SEC (9.30-11.50) H Prothromb Time International Ratio 1.8 (0.9-1.1) H Fibrinogen 122 mg/dL (200-400) *L Fibrin Degradation Products, Quant Pending Height (Feet): 5 Height (Inches): 6.00 Weight (Pounds): 140 General Appearance: no apparent distress Cardiovascular: normal rate Respiratory/Chest: other - mech vent Abdominal Exam: soft Griffin,Christel Semaj N.P. Sep 17, 2016 12:49
--- NOTE | 2016-09-17 13:37 | General Progress Note ---
Assessment/Plan Assessment/Plan ASSESSMENT: 1. Leukocytosis likely secondary to underlying infection/pneumonia. 2. Anemia 2/2 chronic disease 3. Decreased hemoglobin and hematocrit, rule out gastrointestinal bleed. 4. Respiratory failure s/p intubation 5. Thrombocytopenia, likely secondary to liver cirrhosis. stable >40k 6. Liver cirrhosis and fatty infiltration. Heptatitis C + 7. Transaminitis. 8. Elevated brain natriuretic peptide. 9. Pneumonia. 10. Hepatitis C+ 11. Ascites s/p para RECOMMENDATIONS: 1. Monitor counts. 2. Transfuse with prbc if hgb <7.5 3. peripheral smear pending 4. Followup on Cardiology and GI recommendations as well as Pulmonary recs 5. GI prophylaxis with pantoprazole. 6. DVT prophylaxis with SCDs. 7. Anemia workup has been reviewed, ferritin >400 8. Hepatitis panel pending 9. Obtain ultrasound of the abdomen 10. Pain control. 11. Discussed with staff. Thank you, Brandon Soto MD Subjective Constitutional: Reports: no symptoms HEENT: Reports: no symptoms Cardiovascular: Reports: no symptoms Respiratory: Reports: no symptoms Gastrointestinal/Abdominal: Reports: no symptoms Genitourinary: Reports: no symptoms Neurologic/Psychiatric: Reports: no symptoms Endocrine: Reports: no symptoms Hematologic/Lymphatic: Reports: anemia Allergies: Coded Allergies: No Known Allergies (Unverified , 09/15/16) Subjective stable, no events, no bleeding Objective Last 24 Hour Vital Signs Date Time Temp Pulse Resp B/P Pulse Ox O2 Delivery O2 Flow Rate FiO2 09/17/16 13:00 98.7 77 19 99/60 100 Mechanical Ventilator 30 09/17/16 12:00 77 20 109/64 100 Mechanical Ventilator 30 09/17/16 12:00 77 09/17/16 12:00 30 09/17/16 11:09 78 17 30 09/17/16 11:00 77 20 99/54 100 Mechanical Ventilator 30 09/17/16 10:00 82 21 100/50 100 Mechanical Ventilator 30 09/17/16 09:20 80 16 30 09/17/16 09:00 80 20 98/50 100 Mechanical Ventilator 30 09/17/16 08:00 98.2 80 21 94/49 100 Mechanical Ventilator 30 09/17/16 08:00 30 09/17/16 08:00 81 09/17/16 07:10 82 16 99/54 100 Mechanical Ventilator 30 09/17/16 06:57 82 16 30 09/17/16 06:00 82 17 95/53 100 Mechanical Ventilator 30 09/17/16 05:12 84 25 30 09/17/16 05:06 98.5 85 16 96/54 100 Mechanical Ventilator 30 09/17/16 04:00 84 09/17/16 04:00 35 09/17/16 04:00 84 19 99/54 100 Mechanical Ventilator 35 09/17/16 03:20 85 20 30 09/17/16 03:00 85 18 85/51 100 Mechanical Ventilator 40 09/17/16 02:00 88 16 91/49 100 Mechanical Ventilator 40 09/17/16 01:20 84 16 35 09/17/16 01:00 87 16 90/48 100 Mechanical Ventilator 40 09/17/16 00:09 40 09/17/16 00:09 89 09/17/16 00:07 98.3 89 16 98/53 100 Mechanical Ventilator 40 09/16/16 23:18 90 23 35 09/16/16 23:00 88 18 95/52 100 Mechanical Ventilator 40 09/16/16 22:00 86 18 89/48 99 Mechanical Ventilator 40 09/16/16 21:28 88 17 35 09/16/16 21:00 88 19 118/58 100 Mechanical Ventilator 40 09/16/16 20:00 97.9 87 18 95/46 100 Mechanical Ventilator 40 09/16/16 20:00 40 09/16/16 20:00 88 09/16/16 19:00 86 19 100/55 100 Mechanical Ventilator 40 09/16/16 18:55 86 18 35 09/16/16 18:00 88 19 92/51 100 Mechanical Ventilator 40 09/16/16 17:00 90 16 97/55 100 Mechanical Ventilator 40 09/16/16 16:30 87 21 40 09/16/16 16:00 40 09/16/16 16:00 89 09/16/16 16:00 98.1 88 18 98/60 100 Mechanical Ventilator 40 09/16/16 15:00 90 16 114/60 100 Mechanical Ventilator 40 09/16/16 14:57 87 18 40 09/16/16 14:00 87 17 96/50 100 Mechanical Ventilator 40 Intake and Output 09/16/16 09/17/16 19:00 07:00 Intake Total 1354 ml 1125 ml Output Total 400 ml 6295 ml Balance 954 ml -5170 ml Intake IV Total 1104 ml 1125 ml Blood Product 250 ml Output Urine Total 400 ml 595 ml Other 5700 ml Laboratory Tests 09/16/16 20:00: Vancomycin Level Trough 24.0H 09/17/16 04:00: Arterial Blood pH 7.456H, Arterial Blood Partial Pressure CO2 29.2L, Arterial Blood Partial Pressure O2 88.8, Arterial Blood HCO3 20.1L, Arterial Blood Oxygen Saturation 95.9, Arterial Blood Base Excess -3.1, Stewart Test Positive 09/17/16 06:00: White Blood Count 12.6H, Red Blood Count 2.73L, Hemoglobin 8.8L, Hematocrit 26.6L, Mean Corpuscular Volume 97, Mean Corpuscular Hemoglobin 32.1H, Mean Corpuscular Hemoglobin Concent 33.0, Red Cell Distribution Width 21.2H, Platelet Count 36L, Mean Platelet Volume 12.4H, Neutrophils (%) (Auto) , Lymphocytes (%) (Auto) , Monocytes (%) (Auto) , Eosinophils (%) (Auto) , Basophils (%) (Auto) , Differential Total Cells Counted 100, Neutrophils % ( Manual) 76H, Lymphocytes % (Manual) 15L, Monocytes % (Manual) 7, Eosinophils % ( Manual) 2, Basophils % (Manual) 0, Band Neutrophils 0, Platelet Estimate DecreasedL, Platelet Morphology Normal, Hypochromasia 1+, Anisocytosis 2+, Reticulocyte Count 1.0, Haptoglobin 53, D-Dimer 6090H, Sodium Level 148H, Potassium Level 3.6, Chloride Level 116H, Carbon Dioxide Level 19L, Anion Gap 13 , Blood Urea Nitrogen 33H, Creatinine 1.8H, Estimat Glomerular Filtration Rate 38.6, Glucose Level 134H, Calcium Level 7.3L, Phosphorus Level 2.4L, Magnesium Level 1.2L, Total Bilirubin 3.9H, Direct Bilirubin 2.4H, Aspartate Amino Transf (AST/SGOT) 35, Alanine Aminotransferase (ALT/SGPT) 18, Alkaline Phosphatase 142H , Ammonia 60, Lactate Dehydrogenase 218, Total Protein 5.6L, Albumin 1.7L, Globulin 3.9, Albumin/Globulin Ratio 0.4L 09/17/16 09:00: Random Vancomycin Level 19.6 09/17/16 11:00: Prothrombin Time 18.3H, Prothromb Time International Ratio 1.8H, Fibrinogen 122* L, Fibrin Degradation Products, Quant [Pending] Height (Feet): 5 Height (Inches): 6.00 Weight (Pounds): 140 General Appearance: no apparent distress EENT: TMs normal Neck: supple Cardiovascular: normal rate Respiratory/Chest: normal breath sounds Abdomen: soft Extremities: normal inspection Edema: 1+ Leg (L), 1+ Leg (R) Edema: mild edema Neurologic: alert Skin: warm/dry Brandon Soto Sep 17, 2016 13:37
[2016-09-17] MEDS ORDERED: Sodium Phosphate 30 MM in NS 250 ML IV ONE (14:00)
[2016-09-17 14:14] LABS: PROTEIN, BODY FLUID 1.2 g/dL (.)
--- NOTE | 2016-09-17 14:33 | Cardiology Report ---
APPROVED REPORT EXAM: Two-dimensional and M-mode echocardiogram with Doppler and color Doppler. INDICATION Left ventricular function M-Mode DIMENSIONS IVSd1.1 (0.7-1.1cm)Left Atrium (MM)4.9 (1.6-4.0cm) LVDd4.3 (3.5-5.6cm)Aortic Root2.8 (2.0-3.7cm) PWd0.8 (0.7-1.1cm)Aortic Cusp Exc.1.6 (1.5-2.0cm) LVDs3.1 (2.5-4.0cm) PWs1.1 cm Technically difficult study due to poor acoustic windows. Patient on vent. Normal left ventricular chamber size, systolic function and wall motion. Left ventricular ejection fraction estimated to be 50-55%. Mild left ventricular hypertrophy. Large posterior pleural effusion. Fibrin was seen inside the pleural effusion. Mild bi-atrial enlargement by 2D. Focal aortic valve sclerosis with adequate cusp excursion Mildly thickened mitral valve leaflets with normal excursion. Mild mitral annulus and aortic root calcification. Pulmonic valve is well visualized. Normal tricuspid valve structure. IVC is normal in size with no physiologic collapse. RA pressure of 10mmHg. Possible pre-Tamponade. Please corelate clinically. A color flow and spectral Doppler study was performed and revealed: No aortic regurgitation. Mild mitral regurgitation. Left ventricular diastolic dysfunction not obtainable due to A-FIB. Moderate tricuspid regurgitation. Tricuspid systolic velocities suggests peak right ventricular systolic pressure of 77 mmHg Consistent with severe pulmonary hypertension. Clinical Criteria: PATRICE Cole and Dr. Cade were notified on 09/15/16 at 3pm.
[2016-09-17] MEDS ORDERED: Vancomycin 1gm/D5W 250ml IVPB SCH ×2 (15:00)
--- NOTE | 2016-09-17 16:56 | General Progress Note ---
Assessment/Plan Problem List: (1) Heart failure ICD Codes: I50.9 - Heart failure, unspecified SNOMED: 09056641 Qualifiers: Qualified Codes: I50.33 - Acute on chronic diastolic (congestive) heart failure (2) Sepsis ICD Codes: A41.9 - Sepsis, unspecified organism SNOMED: 02185419 (3) Acute respiratory failure ICD Codes: J96.00 - Acute respiratory failure, unspecified whether with hypoxia or hypercapnia SNOMED: 34419170 Qualifiers: Qualified Codes: J96.01 - Acute respiratory failure with hypoxia (4) Liver cirrhosis ICD Codes: K74.60 - Unspecified cirrhosis of liver SNOMED: 27747368 Qualifiers: Qualified Codes: K70.31 - Alcoholic cirrhosis of liver with ascites (5) Respiratory distress ICD Codes: R06.00 - Dyspnea, unspecified SNOMED: 829570959 (6) Anemia ICD Codes: D64.9 - Anemia, unspecified SNOMED: 275275562 (7) Hypoalbuminemia ICD Codes: E88.09 - Other disorders of plasma-protein metabolism, not elsewhere classified SNOMED: 527472799 Assessment/Plan resp failure chf pna no change abx per id poor porgnosis cirrhosis anemia reivewed chart and labs Subjective ROS Limited/Unobtainable: Yes Allergies: Coded Allergies: No Known Allergies (Unverified , 09/15/16) Objective Last 24 Hour Vital Signs Date Time Temp Pulse Resp B/P Pulse Ox O2 Delivery O2 Flow Rate FiO2 09/17/16 16:00 30 09/17/16 16:00 76 19 96/45 100 Mechanical Ventilator 30 09/17/16 16:00 75 09/17/16 15:10 77 20 30 09/17/16 15:00 74 19 95/51 100 Mechanical Ventilator 30 09/17/16 14:00 74 20 88/53 100 Mechanical Ventilator 30 09/17/16 13:10 73 18 30 09/17/16 13:00 98.7 77 19 99/60 100 Mechanical Ventilator 30 09/17/16 12:00 77 20 109/64 100 Mechanical Ventilator 30 09/17/16 12:00 77 09/17/16 12:00 30 09/17/16 11:09 78 17 30 09/17/16 11:00 77 20 99/54 100 Mechanical Ventilator 30 09/17/16 10:00 82 21 100/50 100 Mechanical Ventilator 30 09/17/16 09:20 80 16 30 09/17/16 09:00 80 20 98/50 100 Mechanical Ventilator 30 09/17/16 08:00 98.2 80 21 94/49 100 Mechanical Ventilator 30 09/17/16 08:00 30 09/17/16 08:00 81 09/17/16 07:10 82 16 99/54 100 Mechanical Ventilator 30 09/17/16 06:57 82 16 30 09/17/16 06:00 82 17 95/53 100 Mechanical Ventilator 30 09/17/16 05:12 84 25 30 09/17/16 05:06 98.5 85 16 96/54 100 Mechanical Ventilator 30 09/17/16 04:00 84 09/17/16 04:00 35 09/17/16 04:00 84 19 99/54 100 Mechanical Ventilator 35 09/17/16 03:20 85 20 30 09/17/16 03:00 85 18 85/51 100 Mechanical Ventilator 40 09/17/16 02:00 88 16 91/49 100 Mechanical Ventilator 40 09/17/16 01:20 84 16 35 09/17/16 01:00 87 16 90/48 100 Mechanical Ventilator 40 09/17/16 00:09 40 09/17/16 00:09 89 09/17/16 00:07 98.3 89 16 98/53 100 Mechanical Ventilator 40 09/16/16 23:18 90 23 35 09/16/16 23:00 88 18 95/52 100 Mechanical Ventilator 40 09/16/16 22:00 86 18 89/48 99 Mechanical Ventilator 40 09/16/16 21:28 88 17 35 09/16/16 21:00 88 19 118/58 100 Mechanical Ventilator 40 09/16/16 20:00 97.9 87 18 95/46 100 Mechanical Ventilator 40 09/16/16 20:00 40 09/16/16 20:00 88 09/16/16 19:00 86 19 100/55 100 Mechanical Ventilator 40 09/16/16 18:55 86 18 35 09/16/16 18:00 88 19 92/51 100 Mechanical Ventilator 40 09/16/16 17:00 90 16 97/55 100 Mechanical Ventilator 40 Intake and Output 09/16/16 09/17/16 19:00 07:00 Intake Total 1354 ml 1125 ml Output Total 400 ml 6295 ml Balance 954 ml -5170 ml Intake IV Total 1104 ml 1125 ml Blood Product 250 ml Output Urine Total 400 ml 595 ml Other 5700 ml Laboratory Tests 09/16/16 20:00: Vancomycin Level Trough 24.0H 09/17/16 04:00: Arterial Blood pH 7.456H, Arterial Blood Partial Pressure CO2 29.2L, Arterial Blood Partial Pressure O2 88.8, Arterial Blood HCO3 20.1L, Arterial Blood Oxygen Saturation 95.9, Arterial Blood Base Excess -3.1, Stewart Test Positive 09/17/16 06:00: White Blood Count 12.6H, Red Blood Count 2.73L, Hemoglobin 8.8L, Hematocrit 26.6L, Mean Corpuscular Volume 97, Mean Corpuscular Hemoglobin 32.1H, Mean Corpuscular Hemoglobin Concent 33.0, Red Cell Distribution Width 21.2H, Platelet Count 36L, Mean Platelet Volume 12.4H, Neutrophils (%) (Auto) , Lymphocytes (%) (Auto) , Monocytes (%) (Auto) , Eosinophils (%) (Auto) , Basophils (%) (Auto) , Differential Total Cells Counted 100, Neutrophils % ( Manual) 76H, Lymphocytes % (Manual) 15L, Monocytes % (Manual) 7, Eosinophils % ( Manual) 2, Basophils % (Manual) 0, Band Neutrophils 0, Platelet Estimate DecreasedL, Platelet Morphology Normal, Hypochromasia 1+, Anisocytosis 2+, Reticulocyte Count 1.0, Haptoglobin 53, D-Dimer 6090H, Sodium Level 148H, Potassium Level 3.6, Chloride Level 116H, Carbon Dioxide Level 19L, Anion Gap 13 , Blood Urea Nitrogen 33H, Creatinine 1.8H, Estimat Glomerular Filtration Rate 38.6, Glucose Level 134H, Calcium Level 7.3L, Phosphorus Level 2.4L, Magnesium Level 1.2L, Total Bilirubin 3.9H, Direct Bilirubin 2.4H, Aspartate Amino Transf (AST/SGOT) 35, Alanine Aminotransferase (ALT/SGPT) 18, Alkaline Phosphatase 142H , Ammonia 60, Lactate Dehydrogenase 218, Total Protein 5.6L, Albumin 1.7L, Globulin 3.9, Albumin/Globulin Ratio 0.4L 09/17/16 09:00: Random Vancomycin Level 19.6 09/17/16 11:00: Prothrombin Time 18.3H, Prothromb Time International Ratio 1.8H, Fibrinogen 122* L, Fibrin Degradation Products, Quant [Pending] Height (Feet): 5 Height (Inches): 6.00 Weight (Pounds): 140 General Appearance: confused Respiratory/Chest: rhonchi - bilaterally Abdomen: soft Regina Banda MD Sep 17, 2016 16:55
--- NOTE | 2016-09-17 17:06 | Cardiac Electrophysiology PN ---
Assessment/Plan Assessment/Plan 1. Respiratory failure, on the ventilator. Terminal extubation in am per family. 2. ? Pericardial effusion. The echocardiogram showed ejection fraction of 50% to 55% with a small pericardial effusion and large posterior pleural effusion. 3. Episode of atrial fibrillation with rapid ventricular response. 4. Hypertension. 5. Cirrhosis of the liver. 6. DNR. 7. Thrombocytopenia likely secondary to cirrhosis. 8. Alcoholic liver disease. DW RN Subjective Subjective In ICU on vent. Unresponsive.No change overnight. DNR. Objective Last 24 Hour Vital Signs Date Time Temp Pulse Resp B/P Pulse Ox O2 Delivery O2 Flow Rate FiO2 09/17/16 16:00 30 09/17/16 16:00 76 19 96/45 100 Mechanical Ventilator 30 09/17/16 16:00 75 09/17/16 15:10 77 20 30 09/17/16 15:00 74 19 95/51 100 Mechanical Ventilator 30 09/17/16 14:00 74 20 88/53 100 Mechanical Ventilator 30 09/17/16 13:10 73 18 30 09/17/16 13:00 98.7 77 19 99/60 100 Mechanical Ventilator 30 09/17/16 12:00 77 20 109/64 100 Mechanical Ventilator 30 09/17/16 12:00 77 09/17/16 12:00 30 09/17/16 11:09 78 17 30 09/17/16 11:00 77 20 99/54 100 Mechanical Ventilator 30 09/17/16 10:00 82 21 100/50 100 Mechanical Ventilator 30 09/17/16 09:20 80 16 30 09/17/16 09:00 80 20 98/50 100 Mechanical Ventilator 30 09/17/16 08:00 98.2 80 21 94/49 100 Mechanical Ventilator 30 09/17/16 08:00 30 09/17/16 08:00 81 09/17/16 07:10 82 16 99/54 100 Mechanical Ventilator 30 09/17/16 06:57 82 16 30 09/17/16 06:00 82 17 95/53 100 Mechanical Ventilator 30 09/17/16 05:12 84 25 30 09/17/16 05:06 98.5 85 16 96/54 100 Mechanical Ventilator 30 09/17/16 04:00 84 09/17/16 04:00 35 09/17/16 04:00 84 19 99/54 100 Mechanical Ventilator 35 09/17/16 03:20 85 20 30 09/17/16 03:00 85 18 85/51 100 Mechanical Ventilator 40 09/17/16 02:00 88 16 91/49 100 Mechanical Ventilator 40 09/17/16 01:20 84 16 35 09/17/16 01:00 87 16 90/48 100 Mechanical Ventilator 40 09/17/16 00:09 40 09/17/16 00:09 89 09/17/16 00:07 98.3 89 16 98/53 100 Mechanical Ventilator 40 09/16/16 23:18 90 23 35 09/16/16 23:00 88 18 95/52 100 Mechanical Ventilator 40 09/16/16 22:00 86 18 89/48 99 Mechanical Ventilator 40 09/16/16 21:28 88 17 35 09/16/16 21:00 88 19 118/58 100 Mechanical Ventilator 40 09/16/16 20:00 97.9 87 18 95/46 100 Mechanical Ventilator 40 09/16/16 20:00 40 09/16/16 20:00 88 09/16/16 19:00 86 19 100/55 100 Mechanical Ventilator 40 09/16/16 18:55 86 18 35 09/16/16 18:00 88 19 92/51 100 Mechanical Ventilator 40 Intake and Output 09/16/16 09/17/16 19:00 07:00 Intake Total 1354 ml 1125 ml Output Total 400 ml 6295 ml Balance 954 ml -5170 ml Intake IV Total 1104 ml 1125 ml Blood Product 250 ml Output Urine Total 400 ml 595 ml Other 5700 ml Laboratory Tests Test 09/16/16 20:00 09/17/16 04:00 09/17/16 06:00 09/17/16 09:00 Vancomycin Level Trough 24.0 ug/mL (5.0-12.0) H Arterial Blood pH 7.456 (7.350-7.450) Arterial Blood Partial Pressure CO2 29.2 mmHg (35.0-45.0) L Arterial Blood Partial Pressure O2 88.8 mmHg (75.0-100.0) Arterial Blood HCO3 20.1 mmol/L (22.0-26.0) L Arterial Blood Oxygen Saturation 95.9 % (92.0-98.0) Arterial Blood Base Excess -3.1 Stewart Test Positive White Blood Count 12.6 K/UL (4.8-10.8) H Red Blood Count 2.73 M/UL (4.70-6.10) L Hemoglobin 8.8 G/DL (14.2-18.0) L Hematocrit 26.6 % (42.0-52.0) L Mean Corpuscular Volume 97 FL (80-99) Mean Corpuscular Hemoglobin 32.1 PG (27.0-31.0) H Mean Corpuscular Hemoglobin Concent 33.0 G/DL (32.0-36.0) Red Cell Distribution Width 21.2 % (11.6-14.8) H Platelet Count 36 K/UL (150-450) L Mean Platelet Volume 12.4 FL (6.5-10.1) H Neutrophils (%) (Auto) % (45.0-75.0) Lymphocytes (%) (Auto) % (20.0-45.0) Monocytes (%) (Auto) % (1.0-10.0) Eosinophils (%) (Auto) % (0.0-3.0) Basophils (%) (Auto) % (0.0-2.0) Differential Total Cells Counted 100 Neutrophils % (Manual) 76 % (45-75) H Lymphocytes % (Manual) 15 % (20-45) L Monocytes % (Manual) 7 % (1-10) Eosinophils % (Manual) 2 % (0-3) Basophils % (Manual) 0 % (0-2) Band Neutrophils 0 % (0-8) Platelet Estimate Decreased L Platelet Morphology Normal Hypochromasia 1+ Anisocytosis 2+ Reticulocyte Count 1.0 % (0.0-2.0) Haptoglobin 53 mg/dL (30-200) D-Dimer 6090 ng/mL (<500) H Sodium Level 148 mEQ/L (135-145) H Potassium Level 3.6 mEQ/L (3.4-4.9) Chloride Level 116 mEQ/L (98-107) H Carbon Dioxide Level 19 mEQ/L (20-30) L Anion Gap 13 (5-15) Blood Urea Nitrogen 33 mg/dL (7-23) H Creatinine 1.8 mg/dL (0.7-1.2) H Estimat Glomerular Filtration Rate 38.6 mL/min (>60) Glucose Level 134 mg/dL (74-106) H Calcium Level 7.3 mg/dL (8.6-10.2) L Phosphorus Level 2.4 mg/dL (2.5-4.8) L Magnesium Level 1.2 mg/dL (1.7-2.5) L Total Bilirubin 3.9 mg/dL (0.0-1.2) H Direct Bilirubin 2.4 mg/dL (0.1-0.3) H Aspartate Amino Transf (AST/SGOT) 35 U/L (5-40) Alanine Aminotransferase (ALT/SGPT) 18 U/L (3-41) Alkaline Phosphatase 142 U/L (40-129) H Ammonia 60 umol/L (16-60) Lactate Dehydrogenase 218 U/L (135-230) Total Protein 5.6 g/dL (6.6-8.7) L Albumin 1.7 g/dL (3.5-5.2) L Globulin 3.9 g/dL Albumin/Globulin Ratio 0.4 (1.0-2.7) L Random Vancomycin Level 19.6 ug/mL Test 09/17/16 11:00 Prothrombin Time 18.3 SEC (9.30-11.50) H Prothromb Time International Ratio 1.8 (0.9-1.1) H Fibrinogen 122 mg/dL (200-400) *L Fibrin Degradation Products, Quant Pending Microbiology Date/Time Source Procedure Growth Status 09/15/16 09:00 Blood Blood Culture - Preliminary Yeast Species Resulted 09/15/16 09:00 Blood Blood Culture - Preliminary Yeast Species Resulted 09/16/16 12:00 Ascities Fluid Gram Stain - Final Resulted 09/16/16 12:00 Ascities Fluid Body Fluid Culture - Preliminary NO GROWTH Resulted 09/15/16 13:00 Sputum Gram Stain - Final Resulted 09/15/16 13:00 Sputum Culture - Preliminary Gram Negative Bacillus 1 Resulted 09/15/16 09:00 Nasal Nares MRSA Culture - Final NO METHICILLIN RESISTANT STAPH AUREUS... Complete 09/15/16 09:00 Urine,Clean Catch Urine Culture - Preliminary Yeast Species Resulted 09/16/16 10:10 Arm Right Catheter Tip Culture - Preliminary Resulted 09/15/16 09:00 Rectum VRE Culture - Final Enterococcus Faecium - Vre Complete Objective NECK: No JVD, orally intubated with OG-tube. LUNGS: Decreased breath sounds. CARDIOVASCULAR: Shows regular S1 and S2 with no gallop. ABDOMEN: Distended with ascites. EXTREMITIES: A 1+ pedal edema. FLORIN GALVIN Sep 17, 2016 17:05
--- NOTE | 2016-09-17 18:04 | Infectious Diseases Prog Note ---
Assessment/Plan Problems: (1) Fungemia Assessment & Plan: with blood culture positive for yeast x 2, will continue micafungin empirically and await identification, all lines and catheters need to be removed, D/W nurse at the bedside (2) Acute respiratory failure Assessment & Plan: intubated, on mechanical ventilation, pulmonary is following (3) Sepsis Assessment & Plan: on wide spectrum antibiotics , await culture (4) Heart failure Assessment & Plan: consider diuresis, consult cardiology (5) Liver cirrhosis Assessment & Plan: supportive care , consult GI (6) Colonization with VRE (vancomycin-resistant enterococcus) Assessment & Plan: keep in contact isolation Subjective ROS Limited/Unobtainable: Yes Allergies: Coded Allergies: No Known Allergies (Unverified , 09/15/16) Subjective he is intubated and sedated on mechanical ventilation , not in distress. Objective Vital Signs Last 24 Hour Vital Signs Date Time Temp Pulse Resp B/P Pulse Ox O2 Delivery O2 Flow Rate FiO2 09/17/16 17:20 76 18 30 09/17/16 17:00 98.1 75 18 100/61 100 Mechanical Ventilator 30 09/17/16 16:00 30 09/17/16 16:00 76 19 96/45 100 Mechanical Ventilator 30 09/17/16 16:00 75 09/17/16 15:10 77 20 30 09/17/16 15:00 74 19 95/51 100 Mechanical Ventilator 30 09/17/16 14:00 74 20 88/53 100 Mechanical Ventilator 30 09/17/16 13:10 73 18 30 09/17/16 13:00 98.7 77 19 99/60 100 Mechanical Ventilator 30 09/17/16 12:00 77 20 109/64 100 Mechanical Ventilator 30 09/17/16 12:00 77 09/17/16 12:00 30 09/17/16 11:09 78 17 30 09/17/16 11:00 77 20 99/54 100 Mechanical Ventilator 30 09/17/16 10:00 82 21 100/50 100 Mechanical Ventilator 30 09/17/16 09:20 80 16 30 09/17/16 09:00 80 20 98/50 100 Mechanical Ventilator 30 09/17/16 08:00 98.2 80 21 94/49 100 Mechanical Ventilator 30 09/17/16 08:00 30 09/17/16 08:00 81 09/17/16 07:10 82 16 99/54 100 Mechanical Ventilator 30 09/17/16 06:57 82 16 30 09/17/16 06:00 82 17 95/53 100 Mechanical Ventilator 30 09/17/16 05:12 84 25 30 09/17/16 05:06 98.5 85 16 96/54 100 Mechanical Ventilator 30 09/17/16 04:00 84 09/17/16 04:00 35 09/17/16 04:00 84 19 99/54 100 Mechanical Ventilator 35 09/17/16 03:20 85 20 30 09/17/16 03:00 85 18 85/51 100 Mechanical Ventilator 40 09/17/16 02:00 88 16 91/49 100 Mechanical Ventilator 40 09/17/16 01:20 84 16 35 09/17/16 01:00 87 16 90/48 100 Mechanical Ventilator 40 09/17/16 00:09 40 09/17/16 00:09 89 09/17/16 00:07 98.3 89 16 98/53 100 Mechanical Ventilator 40 09/16/16 23:18 90 23 35 09/16/16 23:00 88 18 95/52 100 Mechanical Ventilator 40 09/16/16 22:00 86 18 89/48 99 Mechanical Ventilator 40 09/16/16 21:28 88 17 35 09/16/16 21:00 88 19 118/58 100 Mechanical Ventilator 40 09/16/16 20:00 97.9 87 18 95/46 100 Mechanical Ventilator 40 09/16/16 20:00 40 09/16/16 20:00 88 09/16/16 19:00 86 19 100/55 100 Mechanical Ventilator 40 09/16/16 18:55 86 18 35 Height (Feet): 5 Height (Inches): 6.00 Weight (Pounds): 140 General Appearance: WD/WN, no acute distress HEENT: normocephalic, atraumatic, anicteric, mucous membranes moist Respiratory/Chest: chest wall non-tender, lungs clear, normal breath sounds, no respiratory distress, no accessory muscle use Cardiovascular: normal peripheral pulses, normal rate, regular rhythm, no gallop/murmur Abdomen: normal bowel sounds, soft, non tender, no organomegaly, non distended , no mass, no scars Extremities: no cyanosis, no clubbing Skin: no rash, no lesions Microbiology Date/Time Source Procedure Growth Status 09/15/16 09:00 Blood Blood Culture - Preliminary Yeast Species Resulted 09/15/16 09:00 Blood Blood Culture - Preliminary Yeast Species Resulted 09/16/16 12:00 Ascities Fluid Gram Stain - Final Resulted 09/16/16 12:00 Ascities Fluid Body Fluid Culture - Preliminary NO GROWTH Resulted 09/15/16 13:00 Sputum Gram Stain - Final Resulted 09/15/16 13:00 Sputum Culture - Preliminary Gram Negative Bacillus 1 Resulted 09/15/16 09:00 Nasal Nares MRSA Culture - Final NO METHICILLIN RESISTANT STAPH AUREUS... Complete 09/15/16 09:00 Urine,Clean Catch Urine Culture - Preliminary Yeast Species Resulted 09/16/16 10:10 Arm Right Catheter Tip Culture - Preliminary Resulted 09/15/16 09:00 Rectum VRE Culture - Final Enterococcus Faecium - Vre Complete Laboratory Tests Test 09/16/16 20:00 09/17/16 04:00 09/17/16 06:00 09/17/16 09:00 Vancomycin Level Trough 24.0 ug/mL (5.0-12.0) H Arterial Blood pH 7.456 (7.350-7.450) Arterial Blood Partial Pressure CO2 29.2 mmHg (35.0-45.0) L Arterial Blood Partial Pressure O2 88.8 mmHg (75.0-100.0) Arterial Blood HCO3 20.1 mmol/L (22.0-26.0) L Arterial Blood Oxygen Saturation 95.9 % (92.0-98.0) Arterial Blood Base Excess -3.1 Stewart Test Positive White Blood Count 12.6 K/UL (4.8-10.8) H Red Blood Count 2.73 M/UL (4.70-6.10) L Hemoglobin 8.8 G/DL (14.2-18.0) L Hematocrit 26.6 % (42.0-52.0) L Mean Corpuscular Volume 97 FL (80-99) Mean Corpuscular Hemoglobin 32.1 PG (27.0-31.0) H Mean Corpuscular Hemoglobin Concent 33.0 G/DL (32.0-36.0) Red Cell Distribution Width 21.2 % (11.6-14.8) H Platelet Count 36 K/UL (150-450) L Mean Platelet Volume 12.4 FL (6.5-10.1) H Neutrophils (%) (Auto) % (45.0-75.0) Lymphocytes (%) (Auto) % (20.0-45.0) Monocytes (%) (Auto) % (1.0-10.0) Eosinophils (%) (Auto) % (0.0-3.0) Basophils (%) (Auto) % (0.0-2.0) Differential Total Cells Counted 100 Neutrophils % (Manual) 76 % (45-75) H Lymphocytes % (Manual) 15 % (20-45) L Monocytes % (Manual) 7 % (1-10) Eosinophils % (Manual) 2 % (0-3) Basophils % (Manual) 0 % (0-2) Band Neutrophils 0 % (0-8) Platelet Estimate Decreased L Platelet Morphology Normal Hypochromasia 1+ Anisocytosis 2+ Reticulocyte Count 1.0 % (0.0-2.0) Haptoglobin 53 mg/dL (30-200) D-Dimer 6090 ng/mL (<500) H Sodium Level 148 mEQ/L (135-145) H Potassium Level 3.6 mEQ/L (3.4-4.9) Chloride Level 116 mEQ/L (98-107) H Carbon Dioxide Level 19 mEQ/L (20-30) L Anion Gap 13 (5-15) Blood Urea Nitrogen 33 mg/dL (7-23) H Creatinine 1.8 mg/dL (0.7-1.2) H Estimat Glomerular Filtration Rate 38.6 mL/min (>60) Glucose Level 134 mg/dL (74-106) H Calcium Level 7.3 mg/dL (8.6-10.2) L Phosphorus Level 2.4 mg/dL (2.5-4.8) L Magnesium Level 1.2 mg/dL (1.7-2.5) L Total Bilirubin 3.9 mg/dL (0.0-1.2) H Direct Bilirubin 2.4 mg/dL (0.1-0.3) H Aspartate Amino Transf (AST/SGOT) 35 U/L (5-40) Alanine Aminotransferase (ALT/SGPT) 18 U/L (3-41) Alkaline Phosphatase 142 U/L (40-129) H Ammonia 60 umol/L (16-60) Lactate Dehydrogenase 218 U/L (135-230) Total Protein 5.6 g/dL (6.6-8.7) L Albumin 1.7 g/dL (3.5-5.2) L Globulin 3.9 g/dL Albumin/Globulin Ratio 0.4 (1.0-2.7) L Random Vancomycin Level 19.6 ug/mL Test 09/17/16 11:00 Prothrombin Time 18.3 SEC (9.30-11.50) H Prothromb Time International Ratio 1.8 (0.9-1.1) H Fibrinogen 122 mg/dL (200-400) *L Fibrin Degradation Products, Quant Pending Current Medications Medications (Trade) Dose Ordered Sig/Marcello Route PRN Reason Start Time Stop Time Status Last Admin Dose Admin Acetaminophen (Tylenol) 650 mg Q4H PRN ORAL fever 09/15/16 10:45 10/15/16 10:44 Albuterol/ Ipratropium 3 ml 3 ml EVERY 4 HOURS PRN HHN Shortness of Breath 09/15/16 10:45 09/20/16 10:44 Amikacin Protocol (Amikacin pharmacy to dose) 1 ea DAILY PRN MISC . 09/15/16 14:45 10/15/16 14:44 Dextrose (D5W 1000ml) 1,000 ml @ 75 mls/hr [id number] IV 09/16/16 09:45 10/16/16 09:44 09/17/16 12:55 Ertapenem/Sodium Chloride (INVanz/Sodium Chloride 100ml bag) 100 ml @ 100 mls/hr Q24H IV 09/15/16 16:00 09/20/16 15:59 09/17/16 16:48 Lactulose 30 gm 30 gm THREE TIMES A DAY ORAL 09/16/16 13:00 10/16/16 12:59 09/17/16 13:03 Lorazepam (Ativan 2mg/ml 1ml) 2 mg EVERY 2 HOURS PRN IV For Anxiety 09/15/16 10:45 09/22/16 10:44 Micafungin Sodium 100 mg/Sodium Chloride 100 ml @ 100 mls/hr Q24H IVPB 09/16/16 16:00 09/23/16 15:59 09/16/16 16:47 Morphine Sulfate (Morphine Sulfate) 4 mg EVERY 4 HOURS PRN IVP Severe Pain (Pain Scale 7-10) 09/15/16 10:45 09/22/16 10:44 Ondansetron HCl (Zofran) 4 mg Q6H PRN IVP Nausea & Vomiting 09/15/16 10:45 10/15/16 10:44 Pantoprazole 40 mg 40 mg DAILY IVP 09/15/16 16:00 10/15/16 15:59 09/17/16 09:20 Polyethylene Glycol (Miralax) 17 gm DAILYPRN PRN ORAL Constipation 09/15/16 10:45 10/15/16 10:44 Sodium Phosphate 30 mm/Sodium Chloride 260 ml @ 42 mls/hr ONCE ONCE IV 09/17/16 14:00 09/17/16 20:11 09/17/16 14:33 Vancomycin HCl (Vanco rx to dose) 1 ea DAILY PRN MISC . 09/15/16 14:45 10/15/16 14:44 Vancomycin HCl/ Dextrose (Vancomycin/D5W 250ml) 250 ml @ 167 mls/hr Q24H IVPB 09/17/16 15:00 09/22/16 14:59 09/17/16 15:18 Tana Landeros M.D. Sep 17, 2016 18:04
[2016-09-17] MEDS ORDERED: Artificial Tears 1.4% Op Soln BOTH EYES PRN (18:15)
[2016-09-17] MEDS ORDERED: Prochlorperazine 10mg tab ORAL PRN (18:15)
[2016-09-17] MEDS ORDERED: Glycopyrrolate 0.2mg/ml 1ml Vial IV PRN (18:15)
[2016-09-17] MEDS ORDERED: Haloperidol 5mg/ml Inj IM PRN (18:15)
[2016-09-18] VITALS (24 sets, daily range): BP systolic 95–125; BP diastolic 57–75
[2016-09-18 05:40] LABS: MEAN CORPUSCULAR HEMOGLOBIN 32.5 PG (27.0-31.0); MEAN CORPUSCULAR VOLUME 98 FL (80-99); MEAN PLATELET VOLUME 10.5 FL (6.5-10.1); PLATELET COUNT 33 K/UL (150-450); RED BLOOD COUNT 2.57 M/UL (4.70-6.10); RED CELL DISTRIBUTION WIDTH 20.5 % (11.6-14.8); WHITE BLOOD COUNT 10.8 K/UL (4.8-10.8)
[2016-09-18 06:12] LABS: ALBUMIN/GLOBULIN RATIO 0.3 (1.0-2.7); CREATININE 2.1 mg/dL (0.7-1.2); GLOMERULAR FILTRATION RATE 32.3 mL/min (>60); MAGNESIUM 1.7 mg/dL (1.7-2.5); PHOSPHORUS 4.7 mg/dL (2.5-4.8); POTASSIUM 3.5 mEQ/L (3.4-4.9); TOTAL PROTEIN 5.4 g/dL (6.6-8.7)
[2016-09-18 07:02] LABS: BILIRUBIN,DIRECT 2.1 mg/dL (0.1-0.3)
[2016-09-18 07:22] LABS: ABG BASE EXCESS -6.5; ABG PCO2 25.1 mmHg (35.0-45.0)
[2016-09-18 07:23] LABS: ABG ALLEN TEST POSITIVE
[2016-09-18 08:57] LABS: BAND NEUTROPHILS % (MANUAL) 2 % (0-8); EOSINOPHILS % (MANUAL) 1 % (0-3); LYMPHOCYTES % (MANUAL) 11 % (20-45); NEUTROPHILS % (MANUAL) 81 % (45-75); TOTAL CELLS COUNTED 100
[2016-09-18 08:58] LABS: ANISOCYTOSIS 2+; BASOPHILS % (MANUAL) 0 % (0-2); HYPOCHROMASIA 3+; PLATELET ESTIMATE DECREASED; PLATELET MORPHOLOGY NORMAL; SPHEROCYTES 1+
--- NOTE | 2016-09-18 11:07 | Pulmonolgy Critical Care Note ---
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 - Objective Last 24 Hour Vital Signs Date Time Temp Pulse Resp B/P Pulse Ox O2 Delivery O2 Flow Rate FiO2 09/18/16 10:00 74 23 105/60 100 Mechanical Ventilator 30 09/18/16 09:04 74 16 30 09/18/16 09:00 73 23 95/57 100 Mechanical Ventilator 30 09/18/16 08:00 79 09/18/16 08:00 30 09/18/16 08:00 76 24 109/61 100 Mechanical Ventilator 30 09/18/16 07:00 83 25 125/75 100 Mechanical Ventilator 30 09/18/16 06:59 87 19 30 09/18/16 06:00 77 22 103/64 100 Mechanical Ventilator 30 09/18/16 05:18 78 16 30 09/18/16 05:00 76 25 106/66 100 Mechanical Ventilator 30 09/18/16 04:00 30 09/18/16 04:00 76 09/18/16 04:00 98.8 76 21 104/64 100 Mechanical Ventilator 30 09/18/16 03:13 74 16 30 09/18/16 03:00 74 17 105/62 100 Mechanical Ventilator 30 09/18/16 02:00 74 18 99/59 100 Mechanical Ventilator 30 09/18/16 01:30 74 18 30 09/18/16 01:00 74 17 97/58 100 Mechanical Ventilator 30 09/18/16 00:00 76 09/18/16 00:00 30 09/18/16 00:00 98.6 76 16 99/62 100 Mechanical Ventilator 30 09/17/16 23:00 76 18 104/61 100 Mechanical Ventilator 30 09/17/16 23:00 75 19 30 09/17/16 22:00 76 21 118/67 100 Mechanical Ventilator 30 09/17/16 21:00 74 21 109/67 100 Mechanical Ventilator 30 09/17/16 20:50 75 21 30 09/17/16 20:00 30 09/17/16 20:00 72 09/17/16 20:00 98.4 75 21 109/59 100 Mechanical Ventilator 30 09/17/16 19:16 74 18 30 09/17/16 19:00 75 20 99/56 100 Mechanical Ventilator 30 09/17/16 18:00 75 20 106/58 100 Mechanical Ventilator 30 09/17/16 17:20 76 18 30 09/17/16 17:00 98.1 75 18 100/61 100 Mechanical Ventilator 30 09/17/16 16:00 30 09/17/16 16:00 76 19 96/45 100 Mechanical Ventilator 30 09/17/16 16:00 75 09/17/16 15:10 77 20 30 09/17/16 15:00 74 19 95/51 100 Mechanical Ventilator 30 09/17/16 14:00 74 20 88/53 100 Mechanical Ventilator 30 09/17/16 13:10 73 18 30 09/17/16 13:00 98.7 77 19 99/60 100 Mechanical Ventilator 30 09/17/16 12:00 77 20 109/64 100 Mechanical Ventilator 30 09/17/16 12:00 77 09/17/16 12:00 30 09/17/16 11:09 78 17 30 Status: awake Condition: critical HEENT: atraumatic Lungs: clear Heart: HR/BP stable, HR/BP unstable Abdomen: soft, active bowel sounds Extremities: no C/C/E, edema Micro: Microbiology Date/Time Source Procedure Growth Status 09/16/16 12:00 Ascities Fluid Gram Stain - Final Resulted 09/16/16 12:00 Ascities Fluid Body Fluid Culture - Preliminary NO GROWTH AFTER 48 HOURS Resulted 09/15/16 13:00 Sputum Gram Stain - Final Resulted 09/15/16 13:00 Sputum Culture - Preliminary Pseudomonas Aeruginosa YEAST Resulted 09/16/16 10:10 Arm Right Catheter Tip Culture - Preliminary YEAST Resulted Accucheck: 103 Critical Care - Subjective ROS Limited/Unobtainable: Yes ICU Day: 3 Intubation Day: 3 Condition: critical EKG Rhythm: Sinus Rhythm FI02: 30 Vent Support Breath Rate: 16 Vent Support Mode: AC Vent Tidal Volume: 500 Sputum Amount: Moderate PEEP: 0 PIP: 32 Fluids: d5 1/2 NS 75 cc.hour I&O: Intake and Output 09/17/16 09/18/16 19:00 07:00 Intake Total 1493 ml 900 ml Output Total 520 ml 430 ml Balance 973 ml 470 ml Intake IV Total 1443 ml 900 ml Other 50 ml Output Urine Total 520 ml 430 ml # Bowel Movements 1 ET-Tube: 7.5 ET Position: 23 Labs: Laboratory Tests Test 09/18/16 04:00 09/18/16 07:10 White Blood Count 10.8 K/UL (4.8-10.8) Red Blood Count 2.57 M/UL (4.70-6.10) L Hemoglobin 8.3 G/DL (14.2-18.0) L Hematocrit 25.3 % (42.0-52.0) L Mean Corpuscular Volume 98 FL (80-99) Mean Corpuscular Hemoglobin 32.5 PG (27.0-31.0) H Mean Corpuscular Hemoglobin Concent 33.0 G/DL (32.0-36.0) Red Cell Distribution Width 20.5 % (11.6-14.8) H Platelet Count 33 K/UL (150-450) L Mean Platelet Volume 10.5 FL (6.5-10.1) H Neutrophils (%) (Auto) % (45.0-75.0) Lymphocytes (%) (Auto) % (20.0-45.0) Monocytes (%) (Auto) % (1.0-10.0) Eosinophils (%) (Auto) % (0.0-3.0) Basophils (%) (Auto) % (0.0-2.0) Differential Total Cells Counted 100 Neutrophils % (Manual) 81 % (45-75) H Lymphocytes % (Manual) 11 % (20-45) L Monocytes % (Manual) 5 % (1-10) Eosinophils % (Manual) 1 % (0-3) Basophils % (Manual) 0 % (0-2) Band Neutrophils 2 % (0-8) Platelet Estimate Decreased L Platelet Morphology Normal Hypochromasia 3+ Anisocytosis 2+ Spherocytes 1+ Sodium Level 146 mEQ/L (135-145) H Potassium Level 3.5 mEQ/L (3.4-4.9) Chloride Level 113 mEQ/L (98-107) H Carbon Dioxide Level 19 mEQ/L (20-30) L Anion Gap 14 (5-15) Blood Urea Nitrogen 37 mg/dL (7-23) H Creatinine 2.1 mg/dL (0.7-1.2) H Estimat Glomerular Filtration Rate 32.3 mL/min (>60) Glucose Level 129 mg/dL (74-106) H Calcium Level 7.0 mg/dL (8.6-10.2) L Phosphorus Level 4.7 mg/dL (2.5-4.8) Magnesium Level 1.7 mg/dL (1.7-2.5) Total Bilirubin 3.3 mg/dL (0.0-1.2) H Direct Bilirubin 2.1 mg/dL (0.1-0.3) H Aspartate Amino Transf (AST/SGOT) 30 U/L (5-40) Alanine Aminotransferase (ALT/SGPT) 16 U/L (3-41) Alkaline Phosphatase 154 U/L (40-129) H Total Protein 5.4 g/dL (6.6-8.7) L Albumin 1.5 g/dL (3.5-5.2) L Globulin 3.9 g/dL Albumin/Globulin Ratio 0.3 (1.0-2.7) L Arterial Blood pH 7.430 (7.350-7.450) Arterial Blood Partial Pressure CO2 25.1 mmHg (35.0-45.0) L Arterial Blood Partial Pressure O2 95.9 mmHg (75.0-100.0) Arterial Blood HCO3 16.5 mmol/L (22.0-26.0) L Arterial Blood Oxygen Saturation 96.4 % (92.0-98.0) Arterial Blood Base Excess -6.5 Stewart Test Positive KALPESH ALANIZ Sep 18, 2016 11:07
--- NOTE | 2016-09-18 12:14 | General Progress Note ---
Assessment/Plan Assessment/Plan ASSESSMENT: 1. Leukocytosis likely secondary to underlying infection/pneumonia. better 2. Anemia 2/2 chronic disease 3. Decreased hemoglobin and hematocrit, rule out gastrointestinal bleed. 4. Respiratory failure s/p intubation 5. Thrombocytopenia, likely secondary to liver cirrhosis. stable >40k 6. Liver cirrhosis and fatty infiltration. Heptatitis C + 7. Transaminitis. 8. Elevated brain natriuretic peptide. 9. Pneumonia. 10. Hepatitis C+ 11. Ascites s/p para RECOMMENDATIONS: 1. Monitor counts. 2. Transfuse with prbc if hgb <7.5 3. Terminal extubation today per [facility] wishes 4. Followup on Cardiology and GI recommendations as well as Pulmonary recs 5. GI prophylaxis with pantoprazole. 6. DVT prophylaxis with SCDs. 7. Anemia workup has been reviewed, ferritin >400 8. Hepatitis panel shows Hep C+ 9. Obtain ultrasound of the abdomen 10. Pain control. 11. Discussed with staff. Thank you, Brandon Soto MD Subjective Constitutional: Reports: no symptoms HEENT: Reports: no symptoms Cardiovascular: Reports: no symptoms Respiratory: Reports: no symptoms Gastrointestinal/Abdominal: Reports: poor appetite Genitourinary: Reports: no symptoms Neurologic/Psychiatric: Reports: no symptoms Endocrine: Reports: no symptoms Hematologic/Lymphatic: Reports: anemia Allergies: Coded Allergies: No Known Allergies (Unverified , 09/15/16) Subjective stable, no events, no bleeding - terminal extubation per [facility] wishes Objective Last 24 Hour Vital Signs Date Time Temp Pulse Resp B/P Pulse Ox O2 Delivery O2 Flow Rate FiO2 09/18/16 11:00 75 22 114/64 100 Mechanical Ventilator 09/18/16 10:52 75 19 30 09/18/16 10:00 74 23 105/60 100 Mechanical Ventilator 09/18/16 09:04 74 16 30 09/18/16 09:00 73 23 95/57 100 Mechanical Ventilator 09/18/16 08:00 79 09/18/16 08:00 30 09/18/16 08:00 76 24 109/61 100 Mechanical Ventilator 09/18/16 07:00 83 25 125/75 100 Mechanical Ventilator 09/18/16 06:59 87 19 30 09/18/16 06:00 77 22 103/64 100 Mechanical Ventilator 09/18/16 05:18 78 16 30 09/18/16 05:00 76 25 106/66 100 Mechanical Ventilator 30 09/18/16 04:00 30 09/18/16 04:00 76 09/18/16 04:00 98.8 76 21 104/64 100 Mechanical Ventilator 30 09/18/16 03:13 74 16 30 09/18/16 03:00 74 17 105/62 100 Mechanical Ventilator 30 09/18/16 02:00 74 18 99/59 100 Mechanical Ventilator 30 09/18/16 01:30 74 18 30 09/18/16 01:00 74 17 97/58 100 Mechanical Ventilator 30 09/18/16 00:00 76 09/18/16 00:00 30 09/18/16 00:00 98.6 76 16 99/62 100 Mechanical Ventilator 30 09/17/16 23:00 76 18 104/61 100 Mechanical Ventilator 30 09/17/16 23:00 75 19 30 09/17/16 22:00 76 21 118/67 100 Mechanical Ventilator 30 09/17/16 21:00 74 21 109/67 100 Mechanical Ventilator 30 09/17/16 20:50 75 21 30 09/17/16 20:00 30 09/17/16 20:00 72 09/17/16 20:00 98.4 75 21 109/59 100 Mechanical Ventilator 30 09/17/16 19:16 74 18 30 09/17/16 19:00 75 20 99/56 100 Mechanical Ventilator 30 09/17/16 18:00 75 20 106/58 100 Mechanical Ventilator 30 09/17/16 17:20 76 18 30 09/17/16 17:00 98.1 75 18 100/61 100 Mechanical Ventilator 30 09/17/16 16:00 30 09/17/16 16:00 76 19 96/45 100 Mechanical Ventilator 30 09/17/16 16:00 75 09/17/16 15:10 77 20 30 09/17/16 15:00 74 19 95/51 100 Mechanical Ventilator 30 09/17/16 14:00 74 20 88/53 100 Mechanical Ventilator 30 09/17/16 13:10 73 18 30 09/17/16 13:00 98.7 77 19 99/60 100 Mechanical Ventilator 30 Intake and Output 09/17/16 09/18/16 19:00 07:00 Intake Total 1493 ml 900 ml Output Total 520 ml 430 ml Balance 973 ml 470 ml Intake IV Total 1443 ml 900 ml Other 50 ml Output Urine Total 520 ml 430 ml # Bowel Movements 1 Laboratory Tests 09/18/16 04:00: White Blood Count 10.8, Red Blood Count 2.57L, Hemoglobin 8.3L, Hematocrit 25.3L , Mean Corpuscular Volume 98, Mean Corpuscular Hemoglobin 32.5H, Mean Corpuscular Hemoglobin Concent 33.0, Red Cell Distribution Width 20.5H, Platelet Count 33L, Mean Platelet Volume 10.5H, Neutrophils (%) (Auto) , Lymphocytes (%) (Auto) , Monocytes (%) (Auto) , Eosinophils (%) (Auto) , Basophils (%) (Auto) , Differential Total Cells Counted 100, Neutrophils % ( Manual) 81H, Lymphocytes % (Manual) 11L, Monocytes % (Manual) 5, Eosinophils % ( Manual) 1, Basophils % (Manual) 0, Band Neutrophils 2, Platelet Estimate DecreasedL, Platelet Morphology Normal, Hypochromasia 3+, Anisocytosis 2+, Spherocytes 1+, Sodium Level 146H, Potassium Level 3.5, Chloride Level 113H, Carbon Dioxide Level 19L, Anion Gap 14, Blood Urea Nitrogen 37H, Creatinine 2.1H , Estimat Glomerular Filtration Rate 32.3, Glucose Level 129H, Calcium Level 7.0L, Phosphorus Level 4.7, Magnesium Level 1.7, Total Bilirubin 3.3H, Direct Bilirubin 2.1H, Aspartate Amino Transf (AST/SGOT) 30, Alanine Aminotransferase ( ALT/SGPT) 16, Alkaline Phosphatase 154H, Total Protein 5.4L, Albumin 1.5L, Globulin 3.9, Albumin/Globulin Ratio 0.3L 09/18/16 07:10: Arterial Blood pH 7.430, Arterial Blood Partial Pressure CO2 25.1L, Arterial Blood Partial Pressure O2 95.9, Arterial Blood HCO3 16.5L, Arterial Blood Oxygen Saturation 96.4, Arterial Blood Base Excess -6.5, Stewart Test Positive Height (Feet): 5 Height (Inches): 6.00 Weight (Pounds): 140 General Appearance: WD/WN EENT: normal ENT inspection Neck: supple Cardiovascular: regular rhythm Respiratory/Chest: lungs clear Abdomen: normal bowel sounds Genitourinary/Rectal: heme negative stool Extremities: normal inspection Edema: 1+ Leg (L), 1+ Leg (R) Edema: mild edema Neurologic: no motor/sensory deficits Skin: warm/dry Brandon Soto Sep 18, 2016 12:13
[2016-09-18 12:30] LABS: FOLIC ACID 4.9 ng/mL (3.1-17.5)
[2016-09-18] MEDS ORDERED: PCA Morphine 1mg/ml 30 ML IV PRN (13:00)
--- NOTE | 2016-09-18 14:36 | Diagnostic Imaging Report ---
Indications: Endotracheal intubation, central venous catheter placement Technique: Portable AP chest at 1045 Findings: Comparison: 0925 Endotracheal tube has been placed, tip near the tracheal marilyn. Nasogastric tube has been placed, tip off the edge of the image, below the diaphragm. Central venous catheter has been placed via the right internal jugular vein, tip in the region of the SVC-right atrial junction. No pneumothorax, apical pleural cap, or right-sided mediastinal widening demonstrated. Left hemithorax is now completely opacified with significant leftward shift of cardiomediastinal structures. Hazy opacity persists in the/over right mid and lower lung. IMPRESSION: Endotracheal tube placed, tip near marilyn but not overtly within left mainstem bronchus. Withdrawal 1-2 cm suggested. Nasogastric tube with placed, below diaphragm Central venous catheter placed via right internal jugular vein, good position, no evidence complication Development of complete collapse of left lung. Central bronchial obstruction suspected Stable right pleural/parenchymal changes
--- NOTE | 2016-09-18 14:36 | Diagnostic Imaging Report ---
Indications: Elevated liver function tests Technique: Transabdominal real-time grayscale and duplex Doppler imaging of the upper abdomen and retroperitoneum was performed. Findings: Comparison: None. Liver small, nodular surface contour, diffusely coarsened parenchymal echogenicity. No focal lesion identified.. Gallbladder contains echogenic non-shadowing material. No obvious stones.. No mural thickening . Sonographic Burgos sign indeterminate.. Bile ducts normal caliber. Common bile duct 2 mm. Pancreas head and body unremarkable; tail obscured. Spleen 12 cm, no focal lesion identified.. Right kidney unremarkable. Left kidney unremarkable. Dorsal and mid abdominal aorta, intrahepatic portion of inferior vena cava patent, normal caliber. Small bowel aorta obscured Duplex Doppler imaging demonstrates antegrade flow in splenic, portal, hepatic veins. Large amount of ascites. IMPRESSION: Liver findings compatible cirrhosis Large ascites likely secondary to portal hypertension Gallbladder sludge Pancreatic tail, distal bowel aorta obscured.
--- NOTE | 2016-09-18 15:23 | General Progress Note ---
Assessment/Plan Problem List: (1) Heart failure ICD Codes: I50.9 - Heart failure, unspecified SNOMED: 26305457 Qualifiers: Qualified Codes: I50.33 - Acute on chronic diastolic (congestive) heart failure (2) Sepsis ICD Codes: A41.9 - Sepsis, unspecified organism SNOMED: 32370659 (3) Acute respiratory failure ICD Codes: J96.00 - Acute respiratory failure, unspecified whether with hypoxia or hypercapnia SNOMED: 74065069 Qualifiers: Qualified Codes: J96.01 - Acute respiratory failure with hypoxia (4) Liver cirrhosis ICD Codes: K74.60 - Unspecified cirrhosis of liver SNOMED: 99236063 Qualifiers: Qualified Codes: K70.31 - Alcoholic cirrhosis of liver with ascites (5) Respiratory distress ICD Codes: R06.00 - Dyspnea, unspecified SNOMED: 209746374 (6) Anemia ICD Codes: D64.9 - Anemia, unspecified SNOMED: 552633864 (7) Hypoalbuminemia ICD Codes: E88.09 - Other disorders of plasma-protein metabolism, not elsewhere classified SNOMED: 956167633 Status: progressing Assessment/Plan pna chf resp failure fluid management per renal reviewed chart and labs no wheezing Subjective ROS Limited/Unobtainable: Yes Allergies: Coded Allergies: No Known Allergies (Unverified , 09/15/16) Objective Last 24 Hour Vital Signs Date Time Temp Pulse Resp B/P Pulse Ox O2 Delivery O2 Flow Rate FiO2 09/18/16 15:00 77 19 118/65 100 Mechanical Ventilator 09/18/16 14:30 78 21 30 09/18/16 14:00 80 20 106/62 100 Mechanical Ventilator 09/18/16 13:00 79 22 110/61 100 Mechanical Ventilator 09/18/16 12:54 79 17 30 09/18/16 12:00 30 09/18/16 12:00 75 09/18/16 12:00 98.2 76 17 110/66 100 Mechanical Ventilator 09/18/16 11:00 75 22 114/64 100 Mechanical Ventilator 09/18/16 10:52 75 19 30 09/18/16 10:00 74 23 105/60 100 Mechanical Ventilator 09/18/16 09:04 74 16 30 09/18/16 09:00 73 23 95/57 100 Mechanical Ventilator 09/18/16 08:00 79 09/18/16 08:00 30 09/18/16 08:00 76 24 109/61 100 Mechanical Ventilator 30 09/18/16 07:00 83 25 125/75 100 Mechanical Ventilator 30 09/18/16 06:59 87 19 30 09/18/16 06:00 77 22 103/64 100 Mechanical Ventilator 30 09/18/16 05:18 78 16 30 09/18/16 05:00 76 25 106/66 100 Mechanical Ventilator 30 09/18/16 04:00 30 09/18/16 04:00 76 09/18/16 04:00 98.8 76 21 104/64 100 Mechanical Ventilator 30 09/18/16 03:13 74 16 30 09/18/16 03:00 74 17 105/62 100 Mechanical Ventilator 30 09/18/16 02:00 74 18 99/59 100 Mechanical Ventilator 30 09/18/16 01:30 74 18 30 09/18/16 01:00 74 17 97/58 100 Mechanical Ventilator 30 09/18/16 00:00 76 09/18/16 00:00 30 09/18/16 00:00 98.6 76 16 99/62 100 Mechanical Ventilator 30 09/17/16 23:00 76 18 104/61 100 Mechanical Ventilator 30 09/17/16 23:00 75 19 30 09/17/16 22:00 76 21 118/67 100 Mechanical Ventilator 30 09/17/16 21:00 74 21 109/67 100 Mechanical Ventilator 30 09/17/16 20:50 75 21 30 09/17/16 20:00 30 09/17/16 20:00 72 09/17/16 20:00 98.4 75 21 109/59 100 Mechanical Ventilator 30 09/17/16 19:16 74 18 30 09/17/16 19:00 75 20 99/56 100 Mechanical Ventilator 30 09/17/16 18:00 75 20 106/58 100 Mechanical Ventilator 30 09/17/16 17:20 76 18 30 09/17/16 17:00 98.1 75 18 100/61 100 Mechanical Ventilator 30 09/17/16 16:00 30 09/17/16 16:00 76 19 96/45 100 Mechanical Ventilator 30 09/17/16 16:00 75 Intake and Output 09/17/16 09/18/16 19:00 07:00 Intake Total 1493 ml 900 ml Output Total 520 ml 430 ml Balance 973 ml 470 ml Intake IV Total 1443 ml 900 ml Other 50 ml Output Urine Total 520 ml 430 ml # Bowel Movements 1 Laboratory Tests 09/18/16 04:00: White Blood Count 10.8, Red Blood Count 2.57L, Hemoglobin 8.3L, Hematocrit 25.3L , Mean Corpuscular Volume 98, Mean Corpuscular Hemoglobin 32.5H, Mean Corpuscular Hemoglobin Concent 33.0, Red Cell Distribution Width 20.5H, Platelet Count 33L, Mean Platelet Volume 10.5H, Neutrophils (%) (Auto) , Lymphocytes (%) (Auto) , Monocytes (%) (Auto) , Eosinophils (%) (Auto) , Basophils (%) (Auto) , Differential Total Cells Counted 100, Neutrophils % ( Manual) 81H, Lymphocytes % (Manual) 11L, Monocytes % (Manual) 5, Eosinophils % ( Manual) 1, Basophils % (Manual) 0, Band Neutrophils 2, Platelet Estimate DecreasedL, Platelet Morphology Normal, Hypochromasia 3+, Anisocytosis 2+, Spherocytes 1+, Sodium Level 146H, Potassium Level 3.5, Chloride Level 113H, Carbon Dioxide Level 19L, Anion Gap 14, Blood Urea Nitrogen 37H, Creatinine 2.1H , Estimat Glomerular Filtration Rate 32.3, Glucose Level 129H, Calcium Level 7.0L, Phosphorus Level 4.7, Magnesium Level 1.7, Total Bilirubin 3.3H, Direct Bilirubin 2.1H, Aspartate Amino Transf (AST/SGOT) 30, Alanine Aminotransferase ( ALT/SGPT) 16, Alkaline Phosphatase 154H, Total Protein 5.4L, Albumin 1.5L, Globulin 3.9, Albumin/Globulin Ratio 0.3L 09/18/16 07:10: Arterial Blood pH 7.430, Arterial Blood Partial Pressure CO2 25.1L, Arterial Blood Partial Pressure O2 95.9, Arterial Blood HCO3 16.5L, Arterial Blood Oxygen Saturation 96.4, Arterial Blood Base Excess -6.5, Stewart Test Positive Height (Feet): 5 Height (Inches): 6.00 Weight (Pounds): 140 EENT: PERRL/EOMI Respiratory/Chest: lungs clear Abdomen: soft Regina Banda MD Sep 18, 2016 15:23
--- NOTE | 2016-09-18 15:45 | Cardiac Electrophysiology PN ---
Assessment/Plan Assessment/Plan 1. Respiratory failure, on the ventilator. Terminal extubation today per family and Dr Cade. 2. ? Pericardial effusion. The echocardiogram showed ejection fraction of 50% to 55% with a small pericardial effusion and large posterior pleural effusion. 3. Episode of atrial fibrillation with rapid ventricular response. 4. Hypertension. 5. Cirrhosis of the liver. 6. DNR. 7. Thrombocytopenia likely secondary to cirrhosis. 8. Alcoholic liver disease. DW RN Subjective Subjective In ICU on vent. Unresponsive.No change overnight. DNR.Plan is terminal extubation when family arrives today. Objective Last 24 Hour Vital Signs Date Time Temp Pulse Resp B/P Pulse Ox O2 Delivery O2 Flow Rate FiO2 09/18/16 15:00 77 19 118/65 100 Mechanical Ventilator 30 09/18/16 14:30 78 21 30 09/18/16 14:00 80 20 106/62 100 Mechanical Ventilator 30 09/18/16 13:00 79 22 110/61 100 Mechanical Ventilator 30 09/18/16 12:54 79 17 30 09/18/16 12:00 30 09/18/16 12:00 75 09/18/16 12:00 98.2 76 17 110/66 100 Mechanical Ventilator 30 09/18/16 11:00 75 22 114/64 100 Mechanical Ventilator 30 09/18/16 10:52 75 19 30 09/18/16 10:00 74 23 105/60 100 Mechanical Ventilator 30 09/18/16 09:04 74 16 30 09/18/16 09:00 73 23 95/57 100 Mechanical Ventilator 30 09/18/16 08:00 79 09/18/16 08:00 30 09/18/16 08:00 76 24 109/61 100 Mechanical Ventilator 30 09/18/16 07:00 83 25 125/75 100 Mechanical Ventilator 30 09/18/16 06:59 87 19 30 09/18/16 06:00 77 22 103/64 100 Mechanical Ventilator 30 09/18/16 05:18 78 16 30 09/18/16 05:00 76 25 106/66 100 Mechanical Ventilator 30 09/18/16 04:00 30 09/18/16 04:00 76 09/18/16 04:00 98.8 76 21 104/64 100 Mechanical Ventilator 30 09/18/16 03:13 74 16 30 09/18/16 03:00 74 17 105/62 100 Mechanical Ventilator 30 09/18/16 02:00 74 18 99/59 100 Mechanical Ventilator 30 09/18/16 01:30 74 18 30 09/18/16 01:00 74 17 97/58 100 Mechanical Ventilator 30 09/18/16 00:00 76 09/18/16 00:00 30 09/18/16 00:00 98.6 76 16 99/62 100 Mechanical Ventilator 30 09/17/16 23:00 76 18 104/61 100 Mechanical Ventilator 30 09/17/16 23:00 75 19 30 09/17/16 22:00 76 21 118/67 100 Mechanical Ventilator 30 09/17/16 21:00 74 21 109/67 100 Mechanical Ventilator 30 09/17/16 20:50 75 21 30 09/17/16 20:00 30 09/17/16 20:00 72 09/17/16 20:00 98.4 75 21 109/59 100 Mechanical Ventilator 30 09/17/16 19:16 74 18 30 09/17/16 19:00 75 20 99/56 100 Mechanical Ventilator 30 09/17/16 18:00 75 20 106/58 100 Mechanical Ventilator 30 09/17/16 17:20 76 18 30 09/17/16 17:00 98.1 75 18 100/61 100 Mechanical Ventilator 30 09/17/16 16:00 30 09/17/16 16:00 76 19 96/45 100 Mechanical Ventilator 30 09/17/16 16:00 75 Intake and Output 09/17/16 09/18/16 18:59 06:59 Intake Total 1376 ml 942 ml Output Total 480 ml 440 ml Balance 896 ml 502 ml Intake IV Total 1326 ml 942 ml Other 50 ml Output Urine Total 480 ml 440 ml # Bowel Movements 1 Laboratory Tests Test 09/18/16 04:00 09/18/16 07:10 White Blood Count 10.8 K/UL (4.8-10.8) Red Blood Count 2.57 M/UL (4.70-6.10) L Hemoglobin 8.3 G/DL (14.2-18.0) L Hematocrit 25.3 % (42.0-52.0) L Mean Corpuscular Volume 98 FL (80-99) Mean Corpuscular Hemoglobin 32.5 PG (27.0-31.0) H Mean Corpuscular Hemoglobin Concent 33.0 G/DL (32.0-36.0) Red Cell Distribution Width 20.5 % (11.6-14.8) H Platelet Count 33 K/UL (150-450) L Mean Platelet Volume 10.5 FL (6.5-10.1) H Neutrophils (%) (Auto) % (45.0-75.0) Lymphocytes (%) (Auto) % (20.0-45.0) Monocytes (%) (Auto) % (1.0-10.0) Eosinophils (%) (Auto) % (0.0-3.0) Basophils (%) (Auto) % (0.0-2.0) Differential Total Cells Counted 100 Neutrophils % (Manual) 81 % (45-75) H Lymphocytes % (Manual) 11 % (20-45) L Monocytes % (Manual) 5 % (1-10) Eosinophils % (Manual) 1 % (0-3) Basophils % (Manual) 0 % (0-2) Band Neutrophils 2 % (0-8) Platelet Estimate Decreased L Platelet Morphology Normal Hypochromasia 3+ Anisocytosis 2+ Spherocytes 1+ Sodium Level 146 mEQ/L (135-145) H Potassium Level 3.5 mEQ/L (3.4-4.9) Chloride Level 113 mEQ/L (98-107) H Carbon Dioxide Level 19 mEQ/L (20-30) L Anion Gap 14 (5-15) Blood Urea Nitrogen 37 mg/dL (7-23) H Creatinine 2.1 mg/dL (0.7-1.2) H Estimat Glomerular Filtration Rate 32.3 mL/min (>60) Glucose Level 129 mg/dL (74-106) H Calcium Level 7.0 mg/dL (8.6-10.2) L Phosphorus Level 4.7 mg/dL (2.5-4.8) Magnesium Level 1.7 mg/dL (1.7-2.5) Total Bilirubin 3.3 mg/dL (0.0-1.2) H Direct Bilirubin 2.1 mg/dL (0.1-0.3) H Aspartate Amino Transf (AST/SGOT) 30 U/L (5-40) Alanine Aminotransferase (ALT/SGPT) 16 U/L (3-41) Alkaline Phosphatase 154 U/L (40-129) H Total Protein 5.4 g/dL (6.6-8.7) L Albumin 1.5 g/dL (3.5-5.2) L Globulin 3.9 g/dL Albumin/Globulin Ratio 0.3 (1.0-2.7) L Arterial Blood pH 7.430 (7.350-7.450) Arterial Blood Partial Pressure CO2 25.1 mmHg (35.0-45.0) L Arterial Blood Partial Pressure O2 95.9 mmHg (75.0-100.0) Arterial Blood HCO3 16.5 mmol/L (22.0-26.0) L Arterial Blood Oxygen Saturation 96.4 % (92.0-98.0) Arterial Blood Base Excess -6.5 Stewart Test Positive Microbiology Date/Time Source Procedure Growth Status 09/16/16 12:00 Ascities Fluid Gram Stain - Final Resulted 09/16/16 12:00 Ascities Fluid Body Fluid Culture - Preliminary NO GROWTH AFTER 48 HOURS Resulted 09/16/16 10:10 Arm Right Catheter Tip Culture - Preliminary YEAST Resulted Objective NECK: No JVD, orally intubated with OG-tube. LUNGS: Decreased breath sounds. CARDIOVASCULAR: Shows regular S1 and S2 with no gallop. ABDOMEN: Distended with ascites. EXTREMITIES: A 1+ pedal edema. FLORIN GALVIN Sep 18, 2016 15:45
[2016-09-18] MEDS ORDERED: Tubing Blood Filter IV ONE (17:15)
[2016-09-18] MEDS ORDERED: NS 275ml ONE (17:15)
[2016-09-18] MEDS ORDERED: Tubing IV Secondary IV ONE (18:15)
--- NOTE | 2016-09-18 18:43 | Infectious Diseases Prog Note ---
Assessment/Plan Problems: (1) Fungemia Assessment & Plan: with blood culture positive for monica tropicalis x 2, on micafungin empirically , now on comfort care and hospice (2) Acute respiratory failure Assessment & Plan: intubated, on mechanical ventilation, pulmonary is following (3) Sepsis Assessment & Plan: poor prognosis , wide spectrum antibiotics were stopped , he is on hospic care (4) Heart failure Assessment & Plan: consider diuresis, consult cardiology (5) Liver cirrhosis Assessment & Plan: supportive care , consult GI (6) Colonization with VRE (vancomycin-resistant enterococcus) Assessment & Plan: keep in contact isolation Subjective ROS Limited/Unobtainable: Yes Allergies: Coded Allergies: No Known Allergies (Unverified , 09/15/16) Subjective he is intubated and sedated on mechanical ventilation , not in distress. Objective Vital Signs Last 24 Hour Vital Signs Date Time Temp Pulse Resp B/P Pulse Ox O2 Delivery O2 Flow Rate FiO2 09/18/16 18:00 74 19 103/61 100 Mechanical Ventilator 30 09/18/16 17:00 75 20 105/61 100 Mechanical Ventilator 30 09/18/16 16:51 75 16 30 09/18/16 16:00 74 09/18/16 16:00 30 09/18/16 16:00 97.4 76 19 99/59 100 Mechanical Ventilator 30 09/18/16 15:00 77 19 118/65 100 Mechanical Ventilator 30 09/18/16 14:30 78 21 30 09/18/16 14:00 80 20 106/62 100 Mechanical Ventilator 30 09/18/16 13:00 79 22 110/61 100 Mechanical Ventilator 30 09/18/16 12:54 79 17 30 09/18/16 12:00 30 09/18/16 12:00 75 09/18/16 12:00 98.2 76 17 110/66 100 Mechanical Ventilator 30 09/18/16 11:00 75 22 114/64 100 Mechanical Ventilator 30 09/18/16 10:52 75 19 30 09/18/16 10:00 74 23 105/60 100 Mechanical Ventilator 30 09/18/16 09:04 74 16 30 09/18/16 09:00 73 23 95/57 100 Mechanical Ventilator 30 09/18/16 08:00 79 09/18/16 08:00 30 09/18/16 08:00 76 24 109/61 100 Mechanical Ventilator 30 09/18/16 07:00 83 25 125/75 100 Mechanical Ventilator 30 09/18/16 06:59 87 19 30 09/18/16 06:00 77 22 103/64 100 Mechanical Ventilator 30 09/18/16 05:18 78 16 30 09/18/16 05:00 76 25 106/66 100 Mechanical Ventilator 30 09/18/16 04:00 30 09/18/16 04:00 76 09/18/16 04:00 98.8 76 21 104/64 100 Mechanical Ventilator 30 09/18/16 03:13 74 16 30 09/18/16 03:00 74 17 105/62 100 Mechanical Ventilator 30 09/18/16 02:00 74 18 99/59 100 Mechanical Ventilator 30 09/18/16 01:30 74 18 30 09/18/16 01:00 74 17 97/58 100 Mechanical Ventilator 30 09/18/16 00:00 76 09/18/16 00:00 30 09/18/16 00:00 98.6 76 16 99/62 100 Mechanical Ventilator 30 09/17/16 23:00 76 18 104/61 100 Mechanical Ventilator 30 09/17/16 23:00 75 19 30 09/17/16 22:00 76 21 118/67 100 Mechanical Ventilator 30 09/17/16 21:00 74 21 109/67 100 Mechanical Ventilator 30 09/17/16 20:50 75 21 30 09/17/16 20:00 30 09/17/16 20:00 72 09/17/16 20:00 98.4 75 21 109/59 100 Mechanical Ventilator 30 09/17/16 19:16 74 18 30 09/17/16 19:00 75 20 99/56 100 Mechanical Ventilator 30 Height (Feet): 5 Height (Inches): 6.00 Weight (Pounds): 140 General Appearance: WD/WN HEENT: normocephalic, atraumatic, anicteric, no JVD Respiratory/Chest: chest wall non-tender, normal breath sounds, no respiratory distress, no accessory muscle use, decreased breath sounds Cardiovascular: normal peripheral pulses, normal rate, regular rhythm, no gallop/murmur Abdomen: normal bowel sounds, soft, non tender, no organomegaly, non distended , no mass Extremities: no cyanosis, no clubbing Skin: no rash, no lesions, no ulcers Microbiology Date/Time Source Procedure Growth Status 09/16/16 12:00 Ascities Fluid Gram Stain - Final Resulted 09/16/16 12:00 Ascities Fluid Body Fluid Culture - Preliminary NO GROWTH AFTER 48 HOURS Resulted 09/16/16 10:10 Arm Right Catheter Tip Culture - Preliminary YEAST Resulted Laboratory Tests Test 09/18/16 04:00 09/18/16 07:10 White Blood Count 10.8 K/UL (4.8-10.8) Red Blood Count 2.57 M/UL (4.70-6.10) L Hemoglobin 8.3 G/DL (14.2-18.0) L Hematocrit 25.3 % (42.0-52.0) L Mean Corpuscular Volume 98 FL (80-99) Mean Corpuscular Hemoglobin 32.5 PG (27.0-31.0) H Mean Corpuscular Hemoglobin Concent 33.0 G/DL (32.0-36.0) Red Cell Distribution Width 20.5 % (11.6-14.8) H Platelet Count 33 K/UL (150-450) L Mean Platelet Volume 10.5 FL (6.5-10.1) H Neutrophils (%) (Auto) % (45.0-75.0) Lymphocytes (%) (Auto) % (20.0-45.0) Monocytes (%) (Auto) % (1.0-10.0) Eosinophils (%) (Auto) % (0.0-3.0) Basophils (%) (Auto) % (0.0-2.0) Differential Total Cells Counted 100 Neutrophils % (Manual) 81 % (45-75) H Lymphocytes % (Manual) 11 % (20-45) L Monocytes % (Manual) 5 % (1-10) Eosinophils % (Manual) 1 % (0-3) Basophils % (Manual) 0 % (0-2) Band Neutrophils 2 % (0-8) Platelet Estimate Decreased L Platelet Morphology Normal Hypochromasia 3+ Anisocytosis 2+ Spherocytes 1+ Sodium Level 146 mEQ/L (135-145) H Potassium Level 3.5 mEQ/L (3.4-4.9) Chloride Level 113 mEQ/L (98-107) H Carbon Dioxide Level 19 mEQ/L (20-30) L Anion Gap 14 (5-15) Blood Urea Nitrogen 37 mg/dL (7-23) H Creatinine 2.1 mg/dL (0.7-1.2) H Estimat Glomerular Filtration Rate 32.3 mL/min (>60) Glucose Level 129 mg/dL (74-106) H Calcium Level 7.0 mg/dL (8.6-10.2) L Phosphorus Level 4.7 mg/dL (2.5-4.8) Magnesium Level 1.7 mg/dL (1.7-2.5) Total Bilirubin 3.3 mg/dL (0.0-1.2) H Direct Bilirubin 2.1 mg/dL (0.1-0.3) H Aspartate Amino Transf (AST/SGOT) 30 U/L (5-40) Alanine Aminotransferase (ALT/SGPT) 16 U/L (3-41) Alkaline Phosphatase 154 U/L (40-129) H Total Protein 5.4 g/dL (6.6-8.7) L Albumin 1.5 g/dL (3.5-5.2) L Globulin 3.9 g/dL Albumin/Globulin Ratio 0.3 (1.0-2.7) L Arterial Blood pH 7.430 (7.350-7.450) Arterial Blood Partial Pressure CO2 25.1 mmHg (35.0-45.0) L Arterial Blood Partial Pressure O2 95.9 mmHg (75.0-100.0) Arterial Blood HCO3 16.5 mmol/L (22.0-26.0) L Arterial Blood Oxygen Saturation 96.4 % (92.0-98.0) Arterial Blood Base Excess -6.5 Stewart Test Positive Current Medications Medications (Trade) Dose Ordered Sig/Marcello Route PRN Reason Start Time Stop Time Status Last Admin Dose Admin Acetaminophen (Tylenol) 650 mg Q4H PRN ORAL fever 09/15/16 10:45 10/15/16 10:44 Albuterol/ Ipratropium (DuoNeb 0.5-3(2.5)mg/3ml) 3 ml EVERY 4 HOURS PRN HHN Shortness of Breath 09/15/16 10:45 09/20/16 10:44 Artificial Tears (Akwa-Tears) 1 drop QIDPRN PRN BOTH EYES Dry Eyes 09/17/16 18:15 10/17/16 18:14 Dextrose (D5W 1000ml) 1,000 ml @ 75 mls/hr [id number] IV 09/16/16 09:45 10/16/16 09:44 09/18/16 14:44 Glycopyrrolate (Robinul) 0.1 mg Q6H PRN IV excessive secretions 09/17/16 18:15 10/17/16 18:14 Haloperidol Lactate 1 mg 1 mg Q30M PRN IM Agitation 09/17/16 18:15 10/17/16 18:14 Lorazepam 2 mg 2 mg EVERY 2 HOURS PRN IV For Anxiety 09/15/16 10:45 09/22/16 10:44 Morphine Sulfate (Morphine Sulfate) 4 mg EVERY 4 HOURS PRN IVP Severe Pain (Pain Scale 7-10) 09/15/16 10:45 09/22/16 10:44 Morphine Sulfate (CRIMP SETTER Morphine) 30 ml @ 5 mls/hr CRIMP SETTER Protocol PRN IV FOR PAIN,COMFORT CARE,END OF L 09/18/16 13:00 09/20/16 12:59 Ondansetron HCl (Zofran) 4 mg Q6H PRN IVP Nausea & Vomiting 09/15/16 10:45 10/15/16 10:44 Prochlorperazine (Compazine) 10 mg Q6H PRN ORAL Nausea & Vomiting 09/17/16 18:15 10/17/16 18:14 Tana Landeros M.D. Sep 18, 2016 18:43
--- NOTE | 2016-09-18 20:18 | Consultation ---
Consult Note Consult Note asked to eval for worsening renal failure- Patient seen , examined- date reviewed . Assessment/Plan Renal Impression: Acute renal failure- Cr jl 0.9 to 2.1- 1) Fungemia, Sepsis (2) Acute respiratory failure, on Vent (3) HTN, At Fib (4) Heart failure (5) Liver cirrhosis and Alcoholic liver disease and related Thrombocytopenia and Anemia (6) DNR Plan: Discussed with RN who informed me that patient is due for terminal extubation when daughter comes to hospital- Contnue current comfort care for now AMADOR MARI Sep 18, 2016 20:18
--- NOTE | 2016-09-18 22:07 | General Progress Note ---
Assessment/Plan Assessment/Plan Assessment/Plan Problems: (1) Hypoalbuminemia ICD Codes: E88.09 - Other disorders of plasma-protein metabolism, not elsewhere classified SNOMED: 650553209 (2) Anemia ICD Codes: D64.9 - Anemia, unspecified SNOMED: 815208474 (3) Respiratory distress ICD Codes: R06.00 - Dyspnea, unspecified SNOMED: 455947377 (4) Liver cirrhosis ICD Codes: K74.60 - Unspecified cirrhosis of liver SNOMED: 67144854 Qualifiers: Qualified Codes: K70.31 - Alcoholic cirrhosis of liver with ascites (5) DNR (do not resuscitate) ICD Codes: Z66 - Do not resuscitate SNOMED: 950234150 (6) Sepsis ICD Codes: A41.9 - Sepsis, unspecified organism SNOMED: 02226879 (7) Acute respiratory failure ICD Codes: J96.00 - Acute respiratory failure, unspecified whether with hypoxia or hypercapnia SNOMED: 14294795 Qualifiers: Qualified Codes: J96.01 - Acute respiratory failure with hypoxia Status: unchanged Assessment/Plan elevated iron levels OB stool uncollected monitor H&H, transfuse prn PPI abd U/S + paracentesis fu hep panel >> Hep C positive monitor LFTs ammonia WNL dietary consult fu labs Subjective Allergies: Coded Allergies: No Known Allergies (Unverified , 09/15/16) Subjective Nonverbal on vent d/w RN Objective Last 24 Hour Vital Signs Date Time Temp Pulse Resp B/P Pulse Ox O2 Delivery O2 Flow Rate FiO2 09/18/16 21:30 122 16 30 09/18/16 21:00 97.7 123 16 95/61 100 Mechanical Ventilator 09/18/16 20:00 30 09/18/16 20:00 123 09/18/16 20:00 123 16 112/71 100 Mechanical Ventilator 09/18/16 19:30 123 21 30 09/18/16 19:00 120 20 108/70 100 Mechanical Ventilator 09/18/16 18:00 74 19 103/61 100 Mechanical Ventilator 30 09/18/16 17:00 75 20 105/61 100 Mechanical Ventilator 30 09/18/16 16:51 75 16 30 09/18/16 16:00 74 09/18/16 16:00 30 09/18/16 16:00 97.4 76 19 99/59 100 Mechanical Ventilator 30 09/18/16 15:00 77 19 118/65 100 Mechanical Ventilator 30 09/18/16 14:30 78 21 30 09/18/16 14:00 80 20 106/62 100 Mechanical Ventilator 30 09/18/16 13:00 79 22 110/61 100 Mechanical Ventilator 30 09/18/16 12:54 79 17 30 09/18/16 12:00 30 09/18/16 12:00 75 09/18/16 12:00 98.2 76 17 110/66 100 Mechanical Ventilator 30 09/18/16 11:00 75 22 114/64 100 Mechanical Ventilator 30 09/18/16 10:52 75 19 30 09/18/16 10:00 74 23 105/60 100 Mechanical Ventilator 30 09/18/16 09:04 74 16 30 09/18/16 09:00 73 23 95/57 100 Mechanical Ventilator 30 09/18/16 08:00 79 09/18/16 08:00 30 09/18/16 08:00 76 24 109/61 100 Mechanical Ventilator 30 09/18/16 07:00 83 25 125/75 100 Mechanical Ventilator 30 09/18/16 06:59 87 19 30 09/18/16 06:00 77 22 103/64 100 Mechanical Ventilator 30 09/18/16 05:18 78 16 30 09/18/16 05:00 76 25 106/66 100 Mechanical Ventilator 30 09/18/16 04:00 30 09/18/16 04:00 76 09/18/16 04:00 98.8 76 21 104/64 100 Mechanical Ventilator 30 09/18/16 03:13 74 16 30 09/18/16 03:00 74 17 105/62 100 Mechanical Ventilator 30 09/18/16 02:00 74 18 99/59 100 Mechanical Ventilator 30 09/18/16 01:30 74 18 30 09/18/16 01:00 74 17 97/58 100 Mechanical Ventilator 30 09/18/16 00:00 76 09/18/16 00:00 30 09/18/16 00:00 98.6 76 16 99/62 100 Mechanical Ventilator 30 09/17/16 23:00 76 18 104/61 100 Mechanical Ventilator 30 09/17/16 23:00 75 19 30 Intake and Output 09/17/16 09/18/16 19:00 07:00 Intake Total 1493 ml 900 ml Output Total 520 ml 430 ml Balance 973 ml 470 ml IV Total 1443 ml 900 ml Other 50 ml Output Urine Total 520 ml 430 ml # Bowel Movements 1 Laboratory Tests 09/18/16 04:00: White Blood Count 10.8, Red Blood Count 2.57L, Hemoglobin 8.3L, Hematocrit 25.3L , Mean Corpuscular Volume 98, Mean Corpuscular Hemoglobin 32.5H, Mean Corpuscular Hemoglobin Concent 33.0, Red Cell Distribution Width 20.5H, Platelet Count 33L, Mean Platelet Volume 10.5H, Neutrophils (%) (Auto) , Lymphocytes (%) (Auto) , Monocytes (%) (Auto) , Eosinophils (%) (Auto) , Basophils (%) (Auto) , Differential Total Cells Counted 100, Neutrophils % ( Manual) 81H, Lymphocytes % (Manual) 11L, Monocytes % (Manual) 5, Eosinophils % ( Manual) 1, Basophils % (Manual) 0, Band Neutrophils 2, Platelet Estimate DecreasedL, Platelet Morphology Normal, Hypochromasia 3+, Anisocytosis 2+, Spherocytes 1+, Sodium Level 146H, Potassium Level 3.5, Chloride Level 113H, Carbon Dioxide Level 19L, Anion Gap 14, Blood Urea Nitrogen 37H, Creatinine 2.1H , Estimat Glomerular Filtration Rate 32.3, Glucose Level 129H, Calcium Level 7.0L, Phosphorus Level 4.7, Magnesium Level 1.7, Total Bilirubin 3.3H, Direct Bilirubin 2.1H, Aspartate Amino Transf (AST/SGOT) 30, Alanine Aminotransferase ( ALT/SGPT) 16, Alkaline Phosphatase 154H, Total Protein 5.4L, Albumin 1.5L, Globulin 3.9, Albumin/Globulin Ratio 0.3L 09/18/16 07:10: Arterial Blood pH 7.430, Arterial Blood Partial Pressure CO2 25.1L, Arterial Blood Partial Pressure O2 95.9, Arterial Blood HCO3 16.5L, Arterial Blood Oxygen Saturation 96.4, Arterial Blood Base Excess -6.5, Stewart Test Positive Height (Feet): 5 Height (Inches): 6.00 Weight (Pounds): 140 Objective elderly man intubated, non communicative supple CTA RRR soft ND NT no edema GIO MURRIETA Sep 18, 2016 22:07
[2016-09-19] VITALS (24 sets, daily range): BP systolic 92–124; BP diastolic 56–71
[2016-09-19 09:03] LABS: COMMENT,BODY FLUID PATHOLOGIST COMMENT
--- NOTE | 2016-09-19 10:29 | General Progress Note ---
Assessment/Plan Assessment/Plan ASSESSMENT: 1. Leukocytosis likely secondary to underlying infection/pneumonia. improved 2. Anemia 2/2 chronic disease 3. Decreased hemoglobin and hematocrit, rule out gastrointestinal bleed. 4. Respiratory failure s/p intubation 5. Thrombocytopenia, likely secondary to liver cirrhosis. stable >40k 6. Liver cirrhosis and fatty infiltration. Heptatitis C + 7. Transaminitis. 8. Elevated brain natriuretic peptide. 9. Pneumonia. 10. Hepatitis C+ 11. Ascites s/p para RECOMMENDATIONS: 1. Monitor counts. 2. Transfuse with prbc if hgb <7.5 3. On comfort care. Plan for terminal extubation per fam wishes 4. Followup on Cardiology, GI, Pulmonary recs 5. GI prophylaxis with pantoprazole. 6. DVT prophylaxis with SCDs. 7. Anemia workup has been reviewed, ferritin >400 8. Hepatitis panel is Hep C+ 9. Obtain ultrasound of the abdomen 10. Pain control. 11. Discussed with staff. Thank you, Teo Soto MD Subjective Constitutional: Reports: no symptoms HEENT: Reports: no symptoms Cardiovascular: Reports: no symptoms Respiratory: Reports: no symptoms Gastrointestinal/Abdominal: Reports: poor appetite Genitourinary: Reports: no symptoms Neurologic/Psychiatric: Reports: no symptoms Endocrine: Reports: no symptoms Hematologic/Lymphatic: Reports: anemia Allergies: Coded Allergies: No Known Allergies (Unverified , 09/15/16) Subjective no fevers, no chills, no night sweats Objective Last 24 Hour Vital Signs Date Time Temp Pulse Resp B/P Pulse Ox O2 Delivery O2 Flow Rate FiO2 09/19/16 09:42 88 20 118/64 100 Mechanical Ventilator 30 09/19/16 09:29 81 21 30 09/19/16 08:00 97.1 80 20 109/61 100 Mechanical Ventilator 30 09/19/16 08:00 80 09/19/16 08:00 30 09/19/16 07:27 80 24 30 09/19/16 07:00 79 20 103/65 100 Mechanical Ventilator 30 09/19/16 06:00 81 22 113/63 100 Mechanical Ventilator 30 09/19/16 05:16 82 22 30 09/19/16 05:00 81 21 117/64 100 Mechanical Ventilator 30 09/19/16 04:00 30 09/19/16 04:00 97.5 79 19 107/66 100 Mechanical Ventilator 30 09/19/16 04:00 79 09/19/16 03:22 77 18 30 09/19/16 03:00 80 20 102/63 100 Mechanical Ventilator 30 09/19/16 02:00 81 21 110/67 100 Mechanical Ventilator 30 09/19/16 01:30 75 18 30 09/19/16 01:00 74 16 99/71 100 Mechanical Ventilator 30 09/19/16 00:00 30 09/19/16 00:00 98.1 79 23 104/71 100 Mechanical Ventilator 30 09/19/16 00:00 79 09/18/16 23:26 121 16 30 09/18/16 23:00 123 16 98/65 100 Mechanical Ventilator 30 09/18/16 22:00 122 17 115/70 100 Mechanical Ventilator 30 09/18/16 21:30 122 16 30 09/18/16 21:00 97.7 123 16 95/61 100 Mechanical Ventilator 30 09/18/16 20:00 30 09/18/16 20:00 123 09/18/16 20:00 123 16 112/71 100 Mechanical Ventilator 30 09/18/16 19:30 123 21 30 09/18/16 19:00 120 20 108/70 100 Mechanical Ventilator 30 09/18/16 18:00 74 19 103/61 100 Mechanical Ventilator 30 09/18/16 17:00 75 20 105/61 100 Mechanical Ventilator 30 09/18/16 16:51 75 16 30 09/18/16 16:00 74 09/18/16 16:00 30 09/18/16 16:00 97.4 76 19 99/59 100 Mechanical Ventilator 30 09/18/16 15:00 77 19 118/65 100 Mechanical Ventilator 30 09/18/16 14:30 78 21 30 09/18/16 14:00 80 20 106/62 100 Mechanical Ventilator 30 09/18/16 13:00 79 22 110/61 100 Mechanical Ventilator 30 09/18/16 12:54 79 17 30 09/18/16 12:00 30 09/18/16 12:00 75 09/18/16 12:00 98.2 76 17 110/66 100 Mechanical Ventilator 30 09/18/16 11:00 75 22 114/64 100 Mechanical Ventilator 30 09/18/16 10:52 75 19 30 Intake and Output 09/18/16 09/19/16 19:00 07:00 Intake Total 825 ml 900 ml Output Total 290 ml 220 ml Balance 535 ml 680 ml Intake Oral 0 ml IV Total 825 ml 900 ml Output Urine Total 290 ml 220 ml # Bowel Movements 1 Height (Feet): 5 Height (Inches): 6.00 Weight (Pounds): 140 General Appearance: no apparent distress EENT: pharynx normal Neck: supple Cardiovascular: regular rhythm Respiratory/Chest: normal breath sounds Abdomen: non tender Extremities: non-tender Edema: 1+ Leg (L), 1+ Leg (R) Edema: mild edema Neurologic: alert Skin: warm/dry TEO SOTO Sep 19, 2016 10:29
--- NOTE | 2016-09-19 13:02 | General Progress Note ---
Assessment/Plan Assessment/Plan Assessment/Plan Problems: (1) Hypoalbuminemia ICD Codes: E88.09 - Other disorders of plasma-protein metabolism, not elsewhere classified SNOMED: 668171257 (2) Anemia ICD Codes: D64.9 - Anemia, unspecified SNOMED: 778513253 (3) Respiratory distress ICD Codes: R06.00 - Dyspnea, unspecified SNOMED: 880347681 (4) Liver cirrhosis ICD Codes: K74.60 - Unspecified cirrhosis of liver SNOMED: 23872943 Qualifiers: Qualified Codes: K70.31 - Alcoholic cirrhosis of liver with ascites (5) DNR (do not resuscitate) ICD Codes: Z66 - Do not resuscitate SNOMED: 143363002 (6) Sepsis ICD Codes: A41.9 - Sepsis, unspecified organism SNOMED: 51178008 (7) Acute respiratory failure ICD Codes: J96.00 - Acute respiratory failure, unspecified whether with hypoxia or hypercapnia SNOMED: 97913264 Qualifiers: Qualified Codes: J96.01 - Acute respiratory failure with hypoxia Status: unchanged Assessment/Plan elevated iron levels OB stool uncollected monitor H&H, transfuse prn PPI abd U/S + paracentesis fu hep panel >> Hep C positive monitor LFTs ammonia WNL await extubation fu labs Subjective Allergies: Coded Allergies: No Known Allergies (Unverified , 09/15/16) Subjective Nonverbal on vent d/w RN Objective Last 24 Hour Vital Signs Date Time Temp Pulse Resp B/P Pulse Ox O2 Delivery O2 Flow Rate FiO2 09/19/16 12:00 30 09/19/16 12:00 74 09/19/16 12:00 97.0 76 20 111/61 100 Mechanical Ventilator 30 09/19/16 11:17 81 18 30 09/19/16 11:00 78 20 109/66 100 Mechanical Ventilator 30 09/19/16 10:00 82 20 117/71 100 Mechanical Ventilator 30 09/19/16 09:42 88 20 118/64 100 Mechanical Ventilator 30 09/19/16 09:29 81 21 30 09/19/16 08:00 97.1 80 20 109/61 100 Mechanical Ventilator 30 09/19/16 08:00 80 09/19/16 08:00 30 09/19/16 07:27 80 24 30 09/19/16 07:00 79 20 103/65 100 Mechanical Ventilator 30 09/19/16 06:00 81 22 113/63 100 Mechanical Ventilator 30 09/19/16 05:16 82 22 30 09/19/16 05:00 81 21 117/64 100 Mechanical Ventilator 30 09/19/16 04:00 30 09/19/16 04:00 97.5 79 19 107/66 100 Mechanical Ventilator 30 09/19/16 04:00 79 09/19/16 03:22 77 18 30 09/19/16 03:00 80 20 102/63 100 Mechanical Ventilator 30 09/19/16 02:00 81 21 110/67 100 Mechanical Ventilator 30 09/19/16 01:30 75 18 30 09/19/16 01:00 74 16 99/71 100 Mechanical Ventilator 30 09/19/16 00:00 30 09/19/16 00:00 98.1 79 23 104/71 100 Mechanical Ventilator 30 09/19/16 00:00 79 09/18/16 23:26 121 16 30 09/18/16 23:00 123 16 98/65 100 Mechanical Ventilator 30 09/18/16 22:00 122 17 115/70 100 Mechanical Ventilator 30 09/18/16 21:30 122 16 30 09/18/16 21:00 97.7 123 16 95/61 100 Mechanical Ventilator 30 09/18/16 20:00 30 09/18/16 20:00 123 09/18/16 20:00 123 16 112/71 100 Mechanical Ventilator 30 09/18/16 19:30 123 21 30 09/18/16 19:00 120 20 108/70 100 Mechanical Ventilator 30 09/18/16 18:00 74 19 103/61 100 Mechanical Ventilator 30 09/18/16 17:00 75 20 105/61 100 Mechanical Ventilator 30 09/18/16 16:51 75 16 30 09/18/16 16:00 74 09/18/16 16:00 30 09/18/16 16:00 97.4 76 19 99/59 100 Mechanical Ventilator 30 09/18/16 15:00 77 19 118/65 100 Mechanical Ventilator 30 09/18/16 14:30 78 21 30 09/18/16 14:00 80 20 106/62 100 Mechanical Ventilator 30 Intake and Output 09/18/16 09/19/16 19:00 07:00 Intake Total 825 ml 900 ml Output Total 290 ml 220 ml Balance 535 ml 680 ml Intake Oral 0 ml IV Total 825 ml 900 ml Output Urine Total 290 ml 220 ml # Bowel Movements 1 Height (Feet): 5 Height (Inches): 6.00 Weight (Pounds): 140 Objective elderly man intubated, non communicative supple CTA RRR soft ND NT no edema GIO MURRIETA Sep 19, 2016 13:02
--- NOTE | 2016-09-19 13:28 | General Progress Note ---
Assessment/Plan Status: deteriorating Assessment/Plan Acute renal failure- Cr jl 0.9 to 2.1- 1) Fungemia, Sepsis (2) Acute respiratory failure, on Vent (3) HTN, At Fib (4) Heart failure (5) Liver cirrhosis and Alcoholic liver disease and related Thrombocytopenia and Anemia (6) DNR Plan: Discussed with RN who informed me that patient is due for terminal extubation when daughter comes to hospital- Contnue current comfort care for now Subjective ROS Limited/Unobtainable: Yes Allergies: Coded Allergies: No Known Allergies (Unverified , 09/15/16) Objective Last 24 Hour Vital Signs Date Time Temp Pulse Resp B/P Pulse Ox O2 Delivery O2 Flow Rate FiO2 09/19/16 13:06 77 18 30 09/19/16 12:00 30 09/19/16 12:00 74 09/19/16 12:00 97.0 76 20 111/61 100 Mechanical Ventilator 30 09/19/16 11:17 81 18 30 09/19/16 11:00 78 20 109/66 100 Mechanical Ventilator 30 09/19/16 10:00 82 20 117/71 100 Mechanical Ventilator 30 09/19/16 09:42 88 20 118/64 100 Mechanical Ventilator 30 09/19/16 09:29 81 21 30 09/19/16 08:00 97.1 80 20 109/61 100 Mechanical Ventilator 30 09/19/16 08:00 80 09/19/16 08:00 30 09/19/16 07:27 80 24 30 09/19/16 07:00 79 20 103/65 100 Mechanical Ventilator 30 09/19/16 06:00 81 22 113/63 100 Mechanical Ventilator 30 09/19/16 05:16 82 22 30 09/19/16 05:00 81 21 117/64 100 Mechanical Ventilator 30 09/19/16 04:00 30 09/19/16 04:00 97.5 79 19 107/66 100 Mechanical Ventilator 30 09/19/16 04:00 79 09/19/16 03:22 77 18 30 09/19/16 03:00 80 20 102/63 100 Mechanical Ventilator 30 09/19/16 02:00 81 21 110/67 100 Mechanical Ventilator 30 09/19/16 01:30 75 18 30 09/19/16 01:00 74 16 99/71 100 Mechanical Ventilator 30 09/19/16 00:00 30 09/19/16 00:00 98.1 79 23 104/71 100 Mechanical Ventilator 30 09/19/16 00:00 79 09/18/16 23:26 121 16 30 09/18/16 23:00 123 16 98/65 100 Mechanical Ventilator 30 09/18/16 22:00 122 17 115/70 100 Mechanical Ventilator 30 09/18/16 21:30 122 16 30 09/18/16 21:00 97.7 123 16 95/61 100 Mechanical Ventilator 30 09/18/16 20:00 30 09/18/16 20:00 123 09/18/16 20:00 123 16 112/71 100 Mechanical Ventilator 30 09/18/16 19:30 123 21 30 09/18/16 19:00 120 20 108/70 100 Mechanical Ventilator 30 09/18/16 18:00 74 19 103/61 100 Mechanical Ventilator 30 09/18/16 17:00 75 20 105/61 100 Mechanical Ventilator 30 09/18/16 16:51 75 16 30 09/18/16 16:00 74 09/18/16 16:00 30 09/18/16 16:00 97.4 76 19 99/59 100 Mechanical Ventilator 30 09/18/16 15:00 77 19 118/65 100 Mechanical Ventilator 30 09/18/16 14:30 78 21 30 09/18/16 14:00 80 20 106/62 100 Mechanical Ventilator 30 Intake and Output 09/18/16 09/19/16 18:59 06:59 Intake Total 825 ml 900 ml Output Total 300 ml 240 ml Balance 525 ml 660 ml Intake Oral 0 ml IV Total 825 ml 900 ml Output Urine Total 300 ml 240 ml # Bowel Movements 1 Height (Feet): 5 Height (Inches): 6.00 Weight (Pounds): 140 General Appearance: no apparent distress, other - on Vent Cardiovascular: normal rate Respiratory/Chest: decreased breath sounds Abdomen: soft AMADOR MARI Sep 19, 2016 13:28
[2016-09-19] MEDS ORDERED: NovoLOG Insulin Flexpen SUBQ STA (20:36)
[2016-09-20] VITALS (24 sets, daily range): BP systolic 83–142; BP diastolic 54–81
--- NOTE | 2016-09-20 10:52 | Pulmonolgy Critical Care Note ---
Critical Care - Asmt/Plan Problems: (1) Respiratory distress (2) Sepsis (3) Acute respiratory failure (4) Liver cirrhosis (5) DNR (do not resuscitate) (6) longterm resident Assessment/Plan: waiting for family arrival/ approval for terminal extubation. Critical Care - Objective Last 24 Hour Vital Signs Date Time Temp Pulse Resp B/P Pulse Ox O2 Delivery O2 Flow Rate FiO2 09/20/16 09:50 85 18 30 09/20/16 09:00 85 15 112/61 100 Mechanical Ventilator 30 09/20/16 08:00 30 09/20/16 08:00 90 09/20/16 08:00 97.8 86 17 117/67 99 Mechanical Ventilator 30 09/20/16 07:08 90 19 30 09/20/16 07:00 86 19 120/66 100 Mechanical Ventilator 30 09/20/16 06:00 95 20 123/69 100 Mechanical Ventilator 30 09/20/16 05:16 94 20 30 09/20/16 05:00 95 22 136/69 100 Mechanical Ventilator 30 09/20/16 04:00 94 09/20/16 04:00 30 09/20/16 04:00 98.2 94 22 126/75 100 Mechanical Ventilator 30 09/20/16 03:21 91 25 30 09/20/16 03:00 78 16 129/70 100 Mechanical Ventilator 30 09/20/16 02:00 79 16 130/69 100 Mechanical Ventilator 30 09/20/16 01:02 76 16 30 09/20/16 01:00 76 16 111/57 100 Mechanical Ventilator 30 09/20/16 00:00 30 09/20/16 00:00 98.0 77 16 92/56 100 Mechanical Ventilator 30 09/20/16 00:00 77 09/19/16 23:04 76 16 30 09/19/16 23:00 79 18 92/56 100 Mechanical Ventilator 30 09/19/16 22:00 81 18 95/56 100 Mechanical Ventilator 30 09/19/16 21:00 82 18 30 09/19/16 21:00 81 18 99/59 100 Mechanical Ventilator 30 09/19/16 20:00 97.4 81 18 106/61 100 Mechanical Ventilator 30 09/19/16 20:00 80 09/19/16 20:00 30 09/19/16 19:00 80 18 111/67 100 Mechanical Ventilator 30 09/19/16 18:45 72 15 30 09/19/16 18:00 74 18 120/60 100 Mechanical Ventilator 30 09/19/16 17:00 73 18 105/59 100 Mechanical Ventilator 30 09/19/16 16:56 74 16 30 09/19/16 16:00 30 09/19/16 16:00 73 09/19/16 16:00 97.3 74 17 107/61 100 Mechanical Ventilator 30 09/19/16 15:05 75 24 30 09/19/16 15:00 78 18 124/65 100 Mechanical Ventilator 30 09/19/16 14:00 76 18 117/66 100 Mechanical Ventilator 30 09/19/16 13:06 77 18 30 09/19/16 13:00 77 18 111/65 100 Mechanical Ventilator 30 09/19/16 12:00 30 09/19/16 12:00 74 09/19/16 12:00 97.0 76 20 111/61 100 Mechanical Ventilator 30 09/19/16 11:17 81 18 30 09/19/16 11:00 78 20 109/66 100 Mechanical Ventilator 30 Status: obtunded Condition: critical HEENT: atraumatic Neck: full ROM Lungs: clear, chest wall tender Heart: HR/BP stable, HR/BP unstable Abdomen: soft, non-tender Decubiti: location Accucheck: 103 Critical Care - Subjective ROS Limited/Unobtainable: Yes Condition: critical EKG Rhythm: Sinus Rhythm FI02: 30 Vent Support Breath Rate: 16 Vent Support Mode: AC Vent Tidal Volume: 500 Sputum Amount: Moderate PEEP: 0 PIP: 31 I&O: Intake and Output 09/19/16 09/20/16 19:00 07:00 Intake Total 750 ml 675 ml Output Total 460 ml 460 ml Balance 290 ml 215 ml Intake Oral 0 ml IV Total 750 ml 675 ml Output Urine Total 460 ml 460 ml ET-Tube: 7.5 ET Position: 23 KALPESH ALANIZ Sep 20, 2016 10:52
--- NOTE | 2016-09-20 11:00 | General Progress Note ---
Assessment/Plan Assessment/Plan ASSESSMENT: 1. Leukocytosis likely secondary to underlying infection/pneumonia. Has improved 2. Anemia 2/2 chronic disease 3. Decreased hemoglobin and hematocrit, rule out GI bleed. 4. Respiratory failure s/p intubation 5. Thrombocytopenia, likely secondary to liver cirrhosis. stable >40k 6. Liver cirrhosis and fatty infiltration. Heptatitis C + 7. Transaminitis. 8. Elevated bnp 9. Pneumonia. 10. Hepatitis C+ 11. Ascites s/p para RECOMMENDATIONS: 1. Monitor counts. 2. Transfuse with prbc if hgb <7.5 3. On comfort care. Planning for terminal extubation per fam wishes 4. Followup on Cardiology, GI, Pulmonary recs 5. GI prophylaxis with pantoprazole. 6. DVT prophylaxis with SCDs. 7. Anemia workup has been reviewed, ferritin >400 8. Hepatitis panel is Hep C+ 9. Pain control. 10. Discussed with staff. Thank you, Brandon Soto MD Subjective Constitutional: Reports: no symptoms HEENT: Reports: no symptoms Cardiovascular: Reports: no symptoms Respiratory: Reports: no symptoms Gastrointestinal/Abdominal: Reports: no symptoms Genitourinary: Reports: no symptoms Neurologic/Psychiatric: Reports: no symptoms Endocrine: Reports: no symptoms Hematologic/Lymphatic: Reports: anemia Allergies: Coded Allergies: No Known Allergies (Unverified , 09/15/16) Subjective stable, no events, no bleeding Objective Last 24 Hour Vital Signs Date Time Temp Pulse Resp B/P Pulse Ox O2 Delivery O2 Flow Rate FiO2 09/20/16 09:50 85 18 30 09/20/16 09:00 85 15 112/61 100 Mechanical Ventilator 09/20/16 08:00 30 09/20/16 08:00 90 09/20/16 08:00 97.8 86 17 117/67 99 Mechanical Ventilator 09/20/16 07:08 90 19 30 09/20/16 07:00 86 19 120/66 100 Mechanical Ventilator 09/20/16 06:00 95 20 123/69 100 Mechanical Ventilator 09/20/16 05:16 94 20 30 09/20/16 05:00 95 22 136/69 100 Mechanical Ventilator 09/20/16 04:00 94 09/20/16 04:00 30 09/20/16 04:00 98.2 94 22 126/75 100 Mechanical Ventilator 09/20/16 03:21 91 25 30 09/20/16 03:00 78 16 129/70 100 Mechanical Ventilator 30 09/20/16 02:00 79 16 130/69 100 Mechanical Ventilator 30 09/20/16 01:02 76 16 30 09/20/16 01:00 76 16 111/57 100 Mechanical Ventilator 30 09/20/16 00:00 30 09/20/16 00:00 98.0 77 16 92/56 100 Mechanical Ventilator 30 09/20/16 00:00 77 09/19/16 23:04 76 16 30 09/19/16 23:00 79 18 92/56 100 Mechanical Ventilator 30 09/19/16 22:00 81 18 95/56 100 Mechanical Ventilator 30 09/19/16 21:00 82 18 30 09/19/16 21:00 81 18 99/59 100 Mechanical Ventilator 30 09/19/16 20:00 97.4 81 18 106/61 100 Mechanical Ventilator 30 09/19/16 20:00 80 09/19/16 20:00 30 09/19/16 19:00 80 18 111/67 100 Mechanical Ventilator 30 09/19/16 18:45 72 15 30 09/19/16 18:00 74 18 120/60 100 Mechanical Ventilator 30 09/19/16 17:00 73 18 105/59 100 Mechanical Ventilator 30 09/19/16 16:56 74 16 30 09/19/16 16:00 30 09/19/16 16:00 73 09/19/16 16:00 97.3 74 17 107/61 100 Mechanical Ventilator 30 09/19/16 15:05 75 24 30 09/19/16 15:00 78 18 124/65 100 Mechanical Ventilator 30 09/19/16 14:00 76 18 117/66 100 Mechanical Ventilator 30 09/19/16 13:06 77 18 30 09/19/16 13:00 77 18 111/65 100 Mechanical Ventilator 30 09/19/16 12:00 30 09/19/16 12:00 74 09/19/16 12:00 97.0 76 20 111/61 100 Mechanical Ventilator 30 09/19/16 11:17 81 18 30 09/19/16 11:00 78 20 109/66 100 Mechanical Ventilator 30 Intake and Output 09/19/16 09/20/16 19:00 07:00 Intake Total 750 ml 675 ml Output Total 460 ml 460 ml Balance 290 ml 215 ml Intake Oral 0 ml IV Total 750 ml 675 ml Output Urine Total 460 ml 460 ml Height (Feet): 5 Height (Inches): 6.00 Weight (Pounds): 140 General Appearance: no apparent distress EENT: TMs normal Neck: supple Cardiovascular: normal rate Respiratory/Chest: lungs clear Abdomen: soft Extremities: non-tender Neurologic: alert Skin: warm/dry Objective on vent Brandon Soto Sep 20, 2016 11:00
--- NOTE | 2016-09-20 11:28 | General Progress Note ---
Assessment/Plan Status: unchanged, deteriorating Assessment/Plan Acute renal failure- Cr jl 0.9 to 2.1- 1) Fungemia, Sepsis (2) Acute respiratory failure, on Vent (3) HTN, At Fib (4) Heart failure (5) Liver cirrhosis and Alcoholic liver disease and related Thrombocytopenia and Anemia (6) DNR Plan: patient is due for terminal extubation when daughter comes to hospital- Contnue current comfort care for now Subjective ROS Limited/Unobtainable: Yes Allergies: Coded Allergies: No Known Allergies (Unverified , 09/15/16) Objective Last 24 Hour Vital Signs Date Time Temp Pulse Resp B/P Pulse Ox O2 Delivery O2 Flow Rate FiO2 09/20/16 11:00 86 19 111/65 98 Mechanical Ventilator 30 09/20/16 10:00 86 17 111/64 100 Mechanical Ventilator 30 09/20/16 09:50 85 18 30 09/20/16 09:00 85 15 112/61 100 Mechanical Ventilator 30 09/20/16 08:00 30 09/20/16 08:00 90 09/20/16 08:00 97.8 86 17 117/67 99 Mechanical Ventilator 30 09/20/16 07:08 90 19 30 09/20/16 07:00 86 19 120/66 100 Mechanical Ventilator 30 09/20/16 06:00 95 20 123/69 100 Mechanical Ventilator 30 09/20/16 05:16 94 20 30 09/20/16 05:00 95 22 136/69 100 Mechanical Ventilator 30 09/20/16 04:00 94 09/20/16 04:00 30 09/20/16 04:00 98.2 94 22 126/75 100 Mechanical Ventilator 30 09/20/16 03:21 91 25 30 09/20/16 03:00 78 16 129/70 100 Mechanical Ventilator 30 09/20/16 02:00 79 16 130/69 100 Mechanical Ventilator 30 09/20/16 01:02 76 16 30 09/20/16 01:00 76 16 111/57 100 Mechanical Ventilator 30 09/20/16 00:00 30 09/20/16 00:00 98.0 77 16 92/56 100 Mechanical Ventilator 30 09/20/16 00:00 77 09/19/16 23:04 76 16 30 09/19/16 23:00 79 18 92/56 100 Mechanical Ventilator 30 09/19/16 22:00 81 18 95/56 100 Mechanical Ventilator 30 09/19/16 21:00 82 18 30 09/19/16 21:00 81 18 99/59 100 Mechanical Ventilator 30 09/19/16 20:00 97.4 81 18 106/61 100 Mechanical Ventilator 30 09/19/16 20:00 80 09/19/16 20:00 30 09/19/16 19:00 80 18 111/67 100 Mechanical Ventilator 30 09/19/16 18:45 72 15 30 09/19/16 18:00 74 18 120/60 100 Mechanical Ventilator 30 09/19/16 17:00 73 18 105/59 100 Mechanical Ventilator 30 09/19/16 16:56 74 16 30 09/19/16 16:00 30 09/19/16 16:00 73 09/19/16 16:00 97.3 74 17 107/61 100 Mechanical Ventilator 30 09/19/16 15:05 75 24 30 09/19/16 15:00 78 18 124/65 100 Mechanical Ventilator 30 09/19/16 14:00 76 18 117/66 100 Mechanical Ventilator 30 09/19/16 13:06 77 18 30 09/19/16 13:00 77 18 111/65 100 Mechanical Ventilator 30 09/19/16 12:00 30 09/19/16 12:00 74 09/19/16 12:00 97.0 76 20 111/61 100 Mechanical Ventilator 30 Intake and Output 09/19/16 09/20/16 19:00 07:00 Intake Total 750 ml 675 ml Output Total 460 ml 460 ml Balance 290 ml 215 ml Intake Oral 0 ml IV Total 750 ml 675 ml Output Urine Total 460 ml 460 ml Height (Feet): 5 Height (Inches): 6.00 Weight (Pounds): 140 General Appearance: no apparent distress Objective PE not changed AMADOR MARI Sep 20, 2016 11:28
--- NOTE | 2016-09-20 11:50 | General Progress Note ---
Assessment/Plan Problem List: (1) Heart failure ICD Codes: I50.9 - Heart failure, unspecified SNOMED: 61561602 Qualifiers: Qualified Codes: I50.33 - Acute on chronic diastolic (congestive) heart failure (2) Sepsis ICD Codes: A41.9 - Sepsis, unspecified organism SNOMED: 68500825 (3) Acute respiratory failure ICD Codes: J96.00 - Acute respiratory failure, unspecified whether with hypoxia or hypercapnia SNOMED: 50869331 Qualifiers: Qualified Codes: J96.01 - Acute respiratory failure with hypoxia (4) Liver cirrhosis ICD Codes: K74.60 - Unspecified cirrhosis of liver SNOMED: 79611885 Qualifiers: Qualified Codes: K70.31 - Alcoholic cirrhosis of liver with ascites (5) Respiratory distress ICD Codes: R06.00 - Dyspnea, unspecified SNOMED: 392780747 (6) Anemia ICD Codes: D64.9 - Anemia, unspecified SNOMED: 374572099 (7) Hypoalbuminemia ICD Codes: E88.09 - Other disorders of plasma-protein metabolism, not elsewhere classified SNOMED: 497974958 Status: progressing Assessment/Plan vitals stable anemia resp insuff pna and chf improved somewhat reviewed chart and labs Subjective ROS Limited/Unobtainable: Yes Constitutional: Reports: no symptoms Allergies: Coded Allergies: No Known Allergies (Unverified , 09/15/16) Objective Last 24 Hour Vital Signs Date Time Temp Pulse Resp B/P Pulse Ox O2 Delivery O2 Flow Rate FiO2 09/20/16 11:06 86 23 30 09/20/16 11:00 86 19 111/65 98 Mechanical Ventilator 09/20/16 10:00 86 17 111/64 100 Mechanical Ventilator 09/20/16 09:50 85 18 30 09/20/16 09:00 85 15 112/61 100 Mechanical Ventilator 09/20/16 08:00 30 09/20/16 08:00 90 09/20/16 08:00 97.8 86 17 117/67 99 Mechanical Ventilator 30 09/20/16 07:08 90 19 30 09/20/16 07:00 86 19 120/66 100 Mechanical Ventilator 09/20/16 06:00 95 20 123/69 100 Mechanical Ventilator 30 09/20/16 05:16 94 20 30 09/20/16 05:00 95 22 136/69 100 Mechanical Ventilator 30 09/20/16 04:00 94 09/20/16 04:00 30 09/20/16 04:00 98.2 94 22 126/75 100 Mechanical Ventilator 30 09/20/16 03:21 91 25 30 09/20/16 03:00 78 16 129/70 100 Mechanical Ventilator 30 09/20/16 02:00 79 16 130/69 100 Mechanical Ventilator 30 09/20/16 01:02 76 16 30 09/20/16 01:00 76 16 111/57 100 Mechanical Ventilator 30 09/20/16 00:00 30 09/20/16 00:00 98.0 77 16 92/56 100 Mechanical Ventilator 30 09/20/16 00:00 77 09/19/16 23:04 76 16 30 09/19/16 23:00 79 18 92/56 100 Mechanical Ventilator 30 09/19/16 22:00 81 18 95/56 100 Mechanical Ventilator 30 09/19/16 21:00 82 18 30 09/19/16 21:00 81 18 99/59 100 Mechanical Ventilator 30 09/19/16 20:00 97.4 81 18 106/61 100 Mechanical Ventilator 30 09/19/16 20:00 80 09/19/16 20:00 30 09/19/16 19:00 80 18 111/67 100 Mechanical Ventilator 30 09/19/16 18:45 72 15 30 09/19/16 18:00 74 18 120/60 100 Mechanical Ventilator 30 09/19/16 17:00 73 18 105/59 100 Mechanical Ventilator 30 09/19/16 16:56 74 16 30 09/19/16 16:00 30 09/19/16 16:00 73 09/19/16 16:00 97.3 74 17 107/61 100 Mechanical Ventilator 30 09/19/16 15:05 75 24 30 09/19/16 15:00 78 18 124/65 100 Mechanical Ventilator 30 09/19/16 14:00 76 18 117/66 100 Mechanical Ventilator 30 09/19/16 13:06 77 18 30 09/19/16 13:00 77 18 111/65 100 Mechanical Ventilator 30 09/19/16 12:00 30 09/19/16 12:00 74 09/19/16 12:00 97.0 76 20 111/61 100 Mechanical Ventilator 30 Intake and Output 1/1/17 1/2/17 19:00 07:00 Intake Total 750 ml 675 ml Output Total 460 ml 460 ml Balance 290 ml 215 ml Intake Oral 0 ml IV Total 750 ml 675 ml Output Urine Total 460 ml 460 ml Height (Feet): 5 Height (Inches): 6.00 Weight (Pounds): 140 General Appearance: confused Cardiovascular: normal rate Abdomen: soft Regina Bnada MD Sep 20, 2016 11:50
--- NOTE | 2016-09-20 15:41 | Infectious Diseases Prog Note ---
Assessment/Plan Problems: (1) Fungemia Assessment & Plan: with blood culture positive for monica tropicalis x 2, on micafungin empirically , now on comfort care and hospice (2) Acute respiratory failure Assessment & Plan: intubated, on mechanical ventilation, pulmonary is following (3) Sepsis Assessment & Plan: poor prognosis , wide spectrum antibiotics were stopped , he is on hospic care (4) Heart failure Assessment & Plan: consider diuresis, cardiology is following (5) Liver cirrhosis Assessment & Plan: supportive care , consult GI (6) Colonization with VRE (vancomycin-resistant enterococcus) Assessment & Plan: keep in contact isolation Subjective ROS Limited/Unobtainable: Yes Allergies: Coded Allergies: No Known Allergies (Unverified , 09/15/16) Subjective he is intubated and sedated on mechanical ventilation , not in distress. Objective Vital Signs Last 24 Hour Vital Signs Date Time Temp Pulse Resp B/P Pulse Ox O2 Delivery O2 Flow Rate FiO2 09/20/16 15:00 89 17 116/68 100 Mechanical Ventilator 30 09/20/16 14:45 93 18 30 09/20/16 14:00 93 18 124/70 100 Mechanical Ventilator 30 09/20/16 13:25 94 18 30 09/20/16 13:00 97.1 86 20 125/68 100 Mechanical Ventilator 09/20/16 12:00 96 09/20/16 12:00 30 09/20/16 12:00 96 22 131/76 100 Mechanical Ventilator 09/20/16 11:06 86 23 30 09/20/16 11:00 86 19 111/65 98 Mechanical Ventilator 30 09/20/16 10:00 86 17 111/64 100 Mechanical Ventilator 30 09/20/16 09:50 85 18 30 09/20/16 09:00 85 15 112/61 100 Mechanical Ventilator 30 09/20/16 08:00 30 09/20/16 08:00 90 09/20/16 08:00 97.8 86 17 117/67 99 Mechanical Ventilator 30 09/20/16 07:08 90 19 30 09/20/16 07:00 86 19 120/66 100 Mechanical Ventilator 30 09/20/16 06:00 95 20 123/69 100 Mechanical Ventilator 30 09/20/16 05:16 94 20 30 09/20/16 05:00 95 22 136/69 100 Mechanical Ventilator 30 09/20/16 04:00 94 1/2/17 04:00 30 09/20/16 04:00 98.2 94 22 126/75 100 Mechanical Ventilator 30 09/20/16 03:21 91 25 30 09/20/16 03:00 78 16 129/70 100 Mechanical Ventilator 30 09/20/16 02:00 79 16 130/69 100 Mechanical Ventilator 30 09/20/16 01:02 76 16 30 09/20/16 01:00 76 16 111/57 100 Mechanical Ventilator 30 09/20/16 00:00 30 09/20/16 00:00 98.0 77 16 92/56 100 Mechanical Ventilator 30 09/20/16 00:00 77 09/19/16 23:04 76 16 30 09/19/16 23:00 79 18 92/56 100 Mechanical Ventilator 30 09/19/16 22:00 81 18 95/56 100 Mechanical Ventilator 30 09/19/16 21:00 82 18 30 09/19/16 21:00 81 18 99/59 100 Mechanical Ventilator 30 09/19/16 20:00 97.4 81 18 106/61 100 Mechanical Ventilator 30 09/19/16 20:00 80 09/19/16 20:00 30 09/19/16 19:00 80 18 111/67 100 Mechanical Ventilator 30 09/19/16 18:45 72 15 30 09/19/16 18:00 74 18 120/60 100 Mechanical Ventilator 30 09/19/16 17:00 73 18 105/59 100 Mechanical Ventilator 30 09/19/16 16:56 74 16 30 09/19/16 16:00 30 09/19/16 16:00 73 09/19/16 16:00 97.3 74 17 107/61 100 Mechanical Ventilator 30 Height (Feet): 5 Height (Inches): 6.00 Weight (Pounds): 140 General Appearance: WD/WN, no acute distress HEENT: normocephalic, atraumatic, anicteric Respiratory/Chest: chest wall non-tender, normal breath sounds, no respiratory distress, decreased breath sounds, crackles/rales Cardiovascular: normal peripheral pulses, normal rate, regular rhythm, no gallop/murmur Abdomen: normal bowel sounds, soft, non tender, no organomegaly, non distended , no mass Extremities: no cyanosis, no clubbing Skin: no rash, no lesions Current Medications Medications (Trade) Dose Ordered Sig/Marcello Route PRN Reason Start Time Stop Time Status Last Admin Dose Admin Acetaminophen (Tylenol) 650 mg Q4H PRN ORAL fever 09/15/16 10:45 10/15/16 10:44 Artificial Tears (Akwa-Tears) 1 drop QIDPRN PRN BOTH EYES Dry Eyes 09/17/16 18:15 10/17/16 18:14 Dextrose (D5W 1000ml) 1,000 ml @ 75 mls/hr [id number] IV 09/16/16 09:45 10/16/16 09:44 09/20/16 08:11 Glycopyrrolate (Robinul) 0.1 mg Q6H PRN IV excessive secretions 09/17/16 18:15 10/17/16 18:14 Haloperidol Lactate (Haldol) 1 mg Q30M PRN IM Agitation 09/17/16 18:15 10/17/16 18:14 Lorazepam 2 mg 2 mg EVERY 2 HOURS PRN IV For Anxiety 09/15/16 10:45 09/22/16 10:44 Morphine Sulfate (Morphine Sulfate) 4 mg EVERY 4 HOURS PRN IVP Severe Pain (Pain Scale 7-10) 09/15/16 10:45 09/22/16 10:44 Ondansetron HCl (Zofran) 4 mg Q6H PRN IVP Nausea & Vomiting 09/15/16 10:45 10/15/16 10:44 Prochlorperazine (Compazine) 10 mg Q6H PRN ORAL Nausea & Vomiting 09/17/16 18:15 10/17/16 18:14 Tana Landeros M.D. Sep 20, 2016 15:41
--- NOTE | 2016-09-20 16:21 | Cardiac Electrophysiology PN ---
Assessment/Plan Assessment/Plan 1. Respiratory failure, on the ventilator. Terminal extubation today per family request. 2. The echocardiogram showed ejection fraction of 50% to 55% with a small pericardial effusion and large posterior pleural effusion. 3. Episode of atrial fibrillation with rapid ventricular response.In SR today. 4. Hypertension. 5. Cirrhosis of the liver. 6. DNR. 7. Thrombocytopenia likely secondary to cirrhosis. 8. Alcoholic liver disease. DW RN Subjective Subjective In ICU on vent. More alert. Plan is terminal extubation when daughter arrives today. Objective Last 24 Hour Vital Signs Date Time Temp Pulse Resp B/P Pulse Ox O2 Delivery O2 Flow Rate FiO2 09/20/16 16:00 98.9 84 17 83/54 100 Mechanical Ventilator 09/20/16 16:00 84 09/20/16 16:00 30 09/20/16 15:00 89 17 116/68 100 Mechanical Ventilator 09/20/16 14:45 93 18 30 09/20/16 14:00 93 18 124/70 100 Mechanical Ventilator 09/20/16 13:25 94 18 30 09/20/16 13:00 97.1 86 20 125/68 100 Mechanical Ventilator 09/20/16 12:00 96 09/20/16 12:00 30 09/20/16 12:00 96 22 131/76 100 Mechanical Ventilator 09/20/16 11:06 86 23 30 09/20/16 11:00 86 19 111/65 98 Mechanical Ventilator 09/20/16 10:00 86 17 111/64 100 Mechanical Ventilator 09/20/16 09:50 85 18 30 09/20/16 09:00 85 15 112/61 100 Mechanical Ventilator 09/20/16 08:00 30 09/20/16 08:00 90 09/20/16 08:00 97.8 86 17 117/67 99 Mechanical Ventilator 09/20/16 07:08 90 19 30 09/20/16 07:00 86 19 120/66 100 Mechanical Ventilator 09/20/16 06:00 95 20 123/69 100 Mechanical Ventilator 09/20/16 05:16 94 20 30 09/20/16 05:00 95 22 136/69 100 Mechanical Ventilator 09/20/16 04:00 94 09/20/16 04:00 30 09/20/16 04:00 98.2 94 22 126/75 100 Mechanical Ventilator 30 09/20/16 03:21 91 25 30 09/20/16 03:00 78 16 129/70 100 Mechanical Ventilator 30 09/20/16 02:00 79 16 130/69 100 Mechanical Ventilator 30 09/20/16 01:02 76 16 30 09/20/16 01:00 76 16 111/57 100 Mechanical Ventilator 30 09/20/16 00:00 30 09/20/16 00:00 98.0 77 16 92/56 100 Mechanical Ventilator 30 09/20/16 00:00 77 09/19/16 23:04 76 16 30 09/19/16 23:00 79 18 92/56 100 Mechanical Ventilator 30 09/19/16 22:00 81 18 95/56 100 Mechanical Ventilator 30 09/19/16 21:00 82 18 30 09/19/16 21:00 81 18 99/59 100 Mechanical Ventilator 30 09/19/16 20:00 97.4 81 18 106/61 100 Mechanical Ventilator 30 09/19/16 20:00 80 09/19/16 20:00 30 09/19/16 19:00 80 18 111/67 100 Mechanical Ventilator 30 09/19/16 18:45 72 15 30 09/19/16 18:00 74 18 120/60 100 Mechanical Ventilator 30 09/19/16 17:00 73 18 105/59 100 Mechanical Ventilator 30 09/19/16 16:56 74 16 30 Intake and Output 09/19/16 09/20/16 19:00 07:00 Intake Total 750 ml 675 ml Output Total 460 ml 460 ml Balance 290 ml 215 ml Intake Oral 0 ml IV Total 750 ml 675 ml Output Urine Total 460 ml 460 ml Current Medications Medications (Trade) Dose Ordered Sig/Marcello Route PRN Reason Start Time Stop Time Status Last Admin Dose Admin Acetaminophen (Tylenol) 650 mg Q4H PRN ORAL fever 09/15/16 10:45 10/15/16 10:44 Artificial Tears (Akwa-Tears) 1 drop QIDPRN PRN BOTH EYES Dry Eyes 09/17/16 18:15 10/17/16 18:14 Dextrose (D5W 1000ml) 1,000 ml @ 75 mls/hr [id number] IV 09/16/16 09:45 10/16/16 09:44 09/20/16 08:11 Glycopyrrolate (Robinul) 0.1 mg Q6H PRN IV excessive secretions 09/17/16 18:15 10/17/16 18:14 Haloperidol Lactate (Haldol) 1 mg Q30M PRN IM Agitation 09/17/16 18:15 10/17/16 18:14 Lorazepam 2 mg 2 mg EVERY 2 HOURS PRN IV For Anxiety 09/15/16 10:45 09/22/16 10:44 Morphine Sulfate (Morphine Sulfate) 4 mg EVERY 4 HOURS PRN IVP Severe Pain (Pain Scale 7-10) 09/15/16 10:45 09/22/16 10:44 Ondansetron HCl (Zofran) 4 mg Q6H PRN IVP Nausea & Vomiting 09/15/16 10:45 10/15/16 10:44 Prochlorperazine (Compazine) 10 mg Q6H PRN ORAL Nausea & Vomiting 09/17/16 18:15 10/17/16 18:14 Objective NECK: No JVD, orally intubated with OG-tube. LUNGS: Decreased breath sounds. CARDIOVASCULAR: Shows regular S1 and S2 with no gallop. ABDOMEN: Distended with ascites. EXTREMITIES: A 1+ pedal edema. FLORIN GALVIN Sep 20, 2016 16:21
--- NOTE | 2016-09-20 17:01 | General Progress Note ---
Assessment/Plan Assessment/Plan Assessment/Plan Problems: (1) Hypoalbuminemia ICD Codes: E88.09 - Other disorders of plasma-protein metabolism, not elsewhere classified SNOMED: 092519458 (2) Anemia ICD Codes: D64.9 - Anemia, unspecified SNOMED: 466758503 (3) Respiratory distress ICD Codes: R06.00 - Dyspnea, unspecified SNOMED: 540342327 (4) Liver cirrhosis ICD Codes: K74.60 - Unspecified cirrhosis of liver SNOMED: 26836249 Qualifiers: Qualified Codes: K70.31 - Alcoholic cirrhosis of liver with ascites (5) DNR (do not resuscitate) ICD Codes: Z66 - Do not resuscitate SNOMED: 612758442 (6) Sepsis ICD Codes: A41.9 - Sepsis, unspecified organism SNOMED: 79906812 (7) Acute respiratory failure ICD Codes: J96.00 - Acute respiratory failure, unspecified whether with hypoxia or hypercapnia SNOMED: 88258537 Qualifiers: Qualified Codes: J96.01 - Acute respiratory failure with hypoxia Status: unchanged Assessment/Plan monitor labs PPI fu hep panel >> Hep C positive await terminal extubation Subjective Allergies: Coded Allergies: No Known Allergies (Unverified , 09/15/16) Subjective Nonverbal on vent d/w RN terminal extubation planned Objective Last 24 Hour Vital Signs Date Time Temp Pulse Resp B/P Pulse Ox O2 Delivery O2 Flow Rate FiO2 09/20/16 16:00 98.9 84 17 83/54 100 Mechanical Ventilator 09/20/16 16:00 84 09/20/16 16:00 30 09/20/16 15:00 89 17 116/68 100 Mechanical Ventilator 09/20/16 14:45 93 18 30 09/20/16 14:00 93 18 124/70 100 Mechanical Ventilator 30 09/20/16 13:25 94 18 30 09/20/16 13:00 97.1 86 20 125/68 100 Mechanical Ventilator 30 09/20/16 12:00 96 09/20/16 12:00 30 09/20/16 12:00 96 22 131/76 100 Mechanical Ventilator 09/20/16 11:06 86 23 30 09/20/16 11:00 86 19 111/65 98 Mechanical Ventilator 09/20/16 10:00 86 17 111/64 100 Mechanical Ventilator 30 09/20/16 09:50 85 18 30 09/20/16 09:00 85 15 112/61 100 Mechanical Ventilator 30 09/20/16 08:00 30 09/20/16 08:00 90 09/20/16 08:00 97.8 86 17 117/67 99 Mechanical Ventilator 30 09/20/16 07:08 90 19 30 09/20/16 07:00 86 19 120/66 100 Mechanical Ventilator 30 09/20/16 06:00 95 20 123/69 100 Mechanical Ventilator 30 09/20/16 05:16 94 20 30 09/20/16 05:00 95 22 136/69 100 Mechanical Ventilator 30 09/20/16 04:00 94 09/20/16 04:00 30 09/20/16 04:00 98.2 94 22 126/75 100 Mechanical Ventilator 30 09/20/16 03:21 91 25 30 09/20/16 03:00 78 16 129/70 100 Mechanical Ventilator 30 09/20/16 02:00 79 16 130/69 100 Mechanical Ventilator 30 09/20/16 01:02 76 16 30 09/20/16 01:00 76 16 111/57 100 Mechanical Ventilator 30 09/20/16 00:00 30 09/20/16 00:00 98.0 77 16 92/56 100 Mechanical Ventilator 30 09/20/16 00:00 77 09/19/16 23:04 76 16 30 09/19/16 23:00 79 18 92/56 100 Mechanical Ventilator 30 09/19/16 22:00 81 18 95/56 100 Mechanical Ventilator 30 09/19/16 21:00 82 18 30 09/19/16 21:00 81 18 99/59 100 Mechanical Ventilator 30 09/19/16 20:00 97.4 81 18 106/61 100 Mechanical Ventilator 30 09/19/16 20:00 80 09/19/16 20:00 30 09/19/16 19:00 80 18 111/67 100 Mechanical Ventilator 30 09/19/16 18:45 72 15 30 09/19/16 18:00 74 18 120/60 100 Mechanical Ventilator 30 Intake and Output 09/19/16 09/20/16 19:00 07:00 Intake Total 750 ml 675 ml Output Total 460 ml 460 ml Balance 290 ml 215 ml Intake Oral 0 ml IV Total 750 ml 675 ml Output Urine Total 460 ml 460 ml Height (Feet): 5 Height (Inches): 6.00 Weight (Pounds): 140 Objective elderly man intubated, non communicative supple CTA RRR soft ND NT no edema GIO MURRIETA Sep 20, 2016 17:01
[2016-09-21] VITALS (22 sets, daily range): BP systolic 83–145; BP diastolic 47–77
--- NOTE | 2016-09-21 09:10 | Pulmonolgy Critical Care Note ---
Critical Care - Asmt/Plan Problems: (1) Respiratory distress (2) Sepsis (3) Acute respiratory failure (4) Liver cirrhosis (5) DNR (do not resuscitate) (6) halfway resident Assessment/Plan: waiting for family arrival/ approval for terminal extubation. health social work professor left a message for the daughter yesterday, Meanwhile we continue with comfort care. Critical Care - Objective Last 24 Hour Vital Signs Date Time Temp Pulse Resp B/P Pulse Ox O2 Delivery O2 Flow Rate FiO2 09/21/16 08:00 96 09/21/16 07:05 95 24 30 09/21/16 07:00 97 20 121/68 100 Mechanical Ventilator 30 09/21/16 06:00 93 20 121/68 100 Mechanical Ventilator 30 09/21/16 05:02 100 20 30 09/21/16 05:00 97 21 86/54 100 Mechanical Ventilator 30 09/21/16 04:00 98.0 97 20 111/63 100 Mechanical Ventilator 30 09/21/16 04:00 30 09/21/16 03:24 106 18 30 09/21/16 03:00 95 18 96/51 100 Mechanical Ventilator 30 09/21/16 02:00 95 18 96/51 100 Mechanical Ventilator 30 09/21/16 01:12 99 22 30 09/21/16 01:00 98 18 99/59 100 Mechanical Ventilator 30 09/21/16 00:00 101 09/21/16 00:00 30 09/21/16 00:00 99.0 101 18 88/56 100 Mechanical Ventilator 30 09/20/16 23:23 105 19 30 09/20/16 23:00 103 20 96/66 100 Mechanical Ventilator 30 09/20/16 22:00 102 20 142/81 100 Mechanical Ventilator 30 09/20/16 21:00 98.7 100 20 121/65 100 Mechanical Ventilator 30 09/20/16 21:00 117 28 30 09/20/16 20:00 86 09/20/16 20:00 85 18 124/70 100 Mechanical Ventilator 30 09/20/16 20:00 30 09/20/16 19:00 83 18 112/62 100 Mechanical Ventilator 30 09/20/16 18:54 84 19 30 09/20/16 18:00 85 17 105/54 100 Mechanical Ventilator 30 09/20/16 17:09 84 16 30 09/20/16 17:00 82 17 108/62 98 Mechanical Ventilator 30 09/20/16 16:00 98.9 84 17 83/54 100 Mechanical Ventilator 30 09/20/16 16:00 84 09/20/16 16:00 30 09/20/16 15:00 89 17 116/68 100 Mechanical Ventilator 30 09/20/16 14:45 93 18 30 09/20/16 14:00 93 18 124/70 100 Mechanical Ventilator 30 09/20/16 13:25 94 18 30 09/20/16 13:00 97.1 86 20 125/68 100 Mechanical Ventilator 30 09/20/16 12:00 96 09/20/16 12:00 30 09/20/16 12:00 96 22 131/76 100 Mechanical Ventilator 09/20/16 11:06 86 23 30 09/20/16 11:00 86 19 111/65 98 Mechanical Ventilator 30 09/20/16 10:00 86 17 111/64 100 Mechanical Ventilator 30 09/20/16 09:50 85 18 30 Status: obtunded Condition: critical, grave Neck: full ROM Lungs: clear, chest wall tender Heart: HR/BP stable Abdomen: soft, non-tender Extremities: no C/C/E Accucheck: 103 Critical Care - Subjective ROS Limited/Unobtainable: Yes Condition: critical EKG Rhythm: Sinus Rhythm FI02: 30 Vent Support Breath Rate: 16 Vent Support Mode: AC Vent Tidal Volume: 500 Sputum Amount: Large PEEP: 0 PIP: 21 I&O: Intake and Output 09/20/16 09/21/16 19:00 07:00 Intake Total 930 ml 825 ml Output Total 795 ml 280 ml Balance 135 ml 545 ml IV Total 900 ml 825 ml Other 30 ml Output Urine Total 795 ml 280 ml ET-Tube: 7.5 ET Position: 23 Labs: No labs KALPESH ALANIZ Sep 21, 2016 09:10
--- NOTE | 2016-09-21 09:44 | General Progress Note ---
Assessment/Plan Assessment/Plan ASSESSMENT: 1. Leukocytosis likely secondary to underlying infection/pneumonia. Improved 2. Anemia 2/2 chronic disease 3. Decreased hemoglobin and hematocrit, rule out GI bleed. 4. Respiratory failure s/p intubation 5. Thrombocytopenia, likely secondary to liver cirrhosis. stable >40k 6. Liver cirrhosis and fatty infiltration. Heptatitis C + 7. Transaminitis. 8. Elevated bnp 9. Pneumonia. 10. Hepatitis C+ 11. Ascites s/p para RECOMMENDATIONS: 1. On comfort care measures. Planning for terminal extubation per fam wishes 2. Followup on Cardiology, GI, Pulmonary recs 3. GI prophylaxis with pantoprazole. 4. DVT prophylaxis with SCDs. 5. Anemia workup has been reviewed, ferritin >400 6. Pain control. 7. Discussed with staff. Thank you, Brandon Soto MD Subjective Constitutional: Reports: no symptoms HEENT: Reports: mouth pain Cardiovascular: Reports: no symptoms Respiratory: Reports: no symptoms Gastrointestinal/Abdominal: Reports: no symptoms Genitourinary: Reports: no symptoms Neurologic/Psychiatric: Reports: no symptoms Endocrine: Reports: no symptoms Hematologic/Lymphatic: Reports: anemia Allergies: Coded Allergies: No Known Allergies (Unverified , 09/15/16) Subjective stable, no events, no bleeding, on comfort care measures Objective Last 24 Hour Vital Signs Date Time Temp Pulse Resp B/P Pulse Ox O2 Delivery O2 Flow Rate FiO2 09/21/16 09:23 89 16 30 09/21/16 09:00 90 17 114/66 100 Mechanical Ventilator 30 09/21/16 08:00 96 09/21/16 08:00 30 09/21/16 08:00 97.5 96 18 116/61 100 Mechanical Ventilator 30 09/21/16 07:05 95 24 30 09/21/16 07:00 97 20 121/68 100 Mechanical Ventilator 30 09/21/16 06:00 93 20 121/68 100 Mechanical Ventilator 30 09/21/16 05:02 100 20 30 09/21/16 05:00 97 21 86/54 100 Mechanical Ventilator 30 09/21/16 04:00 98.0 97 20 111/63 100 Mechanical Ventilator 30 09/21/16 04:00 30 09/21/16 03:24 106 18 30 09/21/16 03:00 95 18 96/51 100 Mechanical Ventilator 30 09/21/16 02:00 95 18 96/51 100 Mechanical Ventilator 30 09/21/16 01:12 99 22 30 09/21/16 01:00 98 18 99/59 100 Mechanical Ventilator 30 09/21/16 00:00 101 09/21/16 00:00 30 09/21/16 00:00 99.0 101 18 88/56 100 Mechanical Ventilator 30 09/20/16 23:23 105 19 30 09/20/16 23:00 103 20 96/66 100 Mechanical Ventilator 30 09/20/16 22:00 102 20 142/81 100 Mechanical Ventilator 30 09/20/16 21:00 98.7 100 20 121/65 100 Mechanical Ventilator 30 09/20/16 21:00 117 28 30 09/20/16 20:00 86 09/20/16 20:00 85 18 124/70 100 Mechanical Ventilator 30 09/20/16 20:00 30 09/20/16 19:00 83 18 112/62 100 Mechanical Ventilator 30 09/20/16 18:54 84 19 30 09/20/16 18:00 85 17 105/54 100 Mechanical Ventilator 30 09/20/16 17:09 84 16 30 09/20/16 17:00 82 17 108/62 98 Mechanical Ventilator 30 09/20/16 16:00 98.9 84 17 83/54 100 Mechanical Ventilator 30 09/20/16 16:00 84 09/20/16 16:00 30 09/20/16 15:00 89 17 116/68 100 Mechanical Ventilator 30 09/20/16 14:45 93 18 30 09/20/16 14:00 93 18 124/70 100 Mechanical Ventilator 30 09/20/16 13:25 94 18 30 09/20/16 13:00 97.1 86 20 125/68 100 Mechanical Ventilator 30 09/20/16 12:00 96 09/20/16 12:00 30 09/20/16 12:00 96 22 131/76 100 Mechanical Ventilator 30 09/20/16 11:06 86 23 30 09/20/16 11:00 86 19 111/65 98 Mechanical Ventilator 30 09/20/16 10:00 86 17 111/64 100 Mechanical Ventilator 30 09/20/16 09:50 85 18 30 Intake and Output 09/20/16 09/21/16 18:59 06:59 Intake Total 930 ml 825 ml Output Total 740 ml 360 ml Balance 190 ml 465 ml IV Total 900 ml 825 ml Other 30 ml Output Urine Total 740 ml 360 ml Height (Feet): 5 Height (Inches): 6.00 Weight (Pounds): 140 General Appearance: no apparent distress EENT: TMs normal Neck: supple Cardiovascular: regular rhythm Respiratory/Chest: normal breath sounds Abdomen: soft Extremities: non-tender Edema: no edema noted Leg (L), no edema noted Leg (R) Edema: mild edema Neurologic: alert Skin: normal pigmentation Objective on vent Brandon Soto Sep 21, 2016 09:44
--- NOTE | 2016-09-21 12:15 | GI Progress Note ---
Assessment/Plan Problems: (1) Hypoalbuminemia ICD Codes: E88.09 - Other disorders of plasma-protein metabolism, not elsewhere classified SNOMED: 720501877 (2) Anemia ICD Codes: D64.9 - Anemia, unspecified SNOMED: 348799847 (3) Respiratory distress ICD Codes: R06.00 - Dyspnea, unspecified SNOMED: 353360710 (4) Liver cirrhosis ICD Codes: K74.60 - Unspecified cirrhosis of liver SNOMED: 24315665 Qualifiers: Qualified Codes: K70.31 - Alcoholic cirrhosis of liver with ascites (5) DNR (do not resuscitate) ICD Codes: Z66 - Do not resuscitate SNOMED: 054774677 (6) Sepsis ICD Codes: A41.9 - Sepsis, unspecified organism SNOMED: 21100282 (7) Acute respiratory failure ICD Codes: J96.00 - Acute respiratory failure, unspecified whether with hypoxia or hypercapnia SNOMED: 88833292 Qualifiers: Qualified Codes: J96.01 - Acute respiratory failure with hypoxia Status: unchanged Status Narrative Discussed with Dr. Tomas. Assessment/Plan monitor labs PPI fu hep panel >> Hep C positive await terminal extubation Subjective Subjective limited Objective Last 24 Hour Vital Signs Date Time Temp Pulse Resp B/P Pulse Ox O2 Delivery O2 Flow Rate FiO2 09/21/16 11:12 85 21 30 09/21/16 11:00 84 16 103/57 100 Mechanical Ventilator 30 09/21/16 10:00 90 23 98/60 100 Mechanical Ventilator 30 09/21/16 09:23 89 16 30 09/21/16 09:00 90 17 114/66 100 Mechanical Ventilator 30 09/21/16 08:00 96 09/21/16 08:00 30 09/21/16 08:00 97.5 96 18 116/61 100 Mechanical Ventilator 30 09/21/16 07:05 95 24 30 09/21/16 07:00 97 20 121/68 100 Mechanical Ventilator 30 09/21/16 06:00 93 20 121/68 100 Mechanical Ventilator 30 09/21/16 05:02 100 20 30 09/21/16 05:00 97 21 86/54 100 Mechanical Ventilator 30 09/21/16 04:00 98.0 97 20 111/63 100 Mechanical Ventilator 30 09/21/16 04:00 30 09/21/16 03:24 106 18 30 09/21/16 03:00 95 18 96/51 100 Mechanical Ventilator 30 09/21/16 02:00 95 18 96/51 100 Mechanical Ventilator 30 09/21/16 01:12 99 22 30 09/21/16 01:00 98 18 99/59 100 Mechanical Ventilator 30 09/21/16 00:00 101 09/21/16 00:00 30 09/21/16 00:00 99.0 101 18 88/56 100 Mechanical Ventilator 30 09/20/16 23:23 105 19 30 09/20/16 23:00 103 20 96/66 100 Mechanical Ventilator 30 09/20/16 22:00 102 20 142/81 100 Mechanical Ventilator 30 09/20/16 21:00 98.7 100 20 121/65 100 Mechanical Ventilator 30 09/20/16 21:00 117 28 30 09/20/16 20:00 86 09/20/16 20:00 85 18 124/70 100 Mechanical Ventilator 30 09/20/16 20:00 30 09/20/16 19:00 83 18 112/62 100 Mechanical Ventilator 30 09/20/16 18:54 84 19 30 09/20/16 18:00 85 17 105/54 100 Mechanical Ventilator 30 09/20/16 17:09 84 16 30 09/20/16 17:00 82 17 108/62 98 Mechanical Ventilator 30 09/20/16 16:00 98.9 84 17 83/54 100 Mechanical Ventilator 30 09/20/16 16:00 84 09/20/16 16:00 30 09/20/16 15:00 89 17 116/68 100 Mechanical Ventilator 30 09/20/16 14:45 93 18 30 09/20/16 14:00 93 18 124/70 100 Mechanical Ventilator 30 09/20/16 13:25 94 18 30 09/20/16 13:00 97.1 86 20 125/68 100 Mechanical Ventilator 30 Intake and Output 09/20/16 09/21/16 19:00 07:00 Intake Total 930 ml 825 ml Output Total 795 ml 315 ml Balance 135 ml 510 ml IV Total 900 ml 825 ml Other 30 ml Output Urine Total 795 ml 315 ml Height (Feet): 5 Height (Inches): 6.00 Weight (Pounds): 140 General Appearance: no apparent distress Cardiovascular: normal rate Respiratory/Chest: other - mech vent Abdominal Exam: soft Griffin,Christel Semaj N.P. Sep 21, 2016 12:14
--- NOTE | 2016-09-21 13:33 | Diagnostic Imaging Report ---
APPROVED REPORT CPT Code: 19089 Present Symptoms Comments: R/O DVT BILATERAL: Imaging reveals a patent deep venous system bilaterally. There is no evidence of thrombus within the femoral, popliteal or tibial segments. The greater saphenous veins are also within normal limits. Doppler indicates normal spontaneous flow within these segments.
--- NOTE | 2016-09-21 15:10 | General Progress Note ---
Assessment/Plan Problem List: (1) Heart failure ICD Codes: I50.9 - Heart failure, unspecified SNOMED: 42395687 Qualifiers: Qualified Codes: I50.33 - Acute on chronic diastolic (congestive) heart failure (2) Sepsis ICD Codes: A41.9 - Sepsis, unspecified organism SNOMED: 25320696 (3) Acute respiratory failure ICD Codes: J96.00 - Acute respiratory failure, unspecified whether with hypoxia or hypercapnia SNOMED: 27481324 Qualifiers: Qualified Codes: J96.01 - Acute respiratory failure with hypoxia (4) Liver cirrhosis ICD Codes: K74.60 - Unspecified cirrhosis of liver SNOMED: 49692342 Qualifiers: Qualified Codes: K70.31 - Alcoholic cirrhosis of liver with ascites (5) Respiratory distress ICD Codes: R06.00 - Dyspnea, unspecified SNOMED: 598799400 (6) Anemia ICD Codes: D64.9 - Anemia, unspecified SNOMED: 479849314 (7) Hypoalbuminemia ICD Codes: E88.09 - Other disorders of plasma-protein metabolism, not elsewhere classified SNOMED: 260981690 Status: progressing Assessment/Plan vitals stable resp failure pna improving sepsis lyte abnormality anemia Subjective ROS Limited/Unobtainable: Yes Constitutional: Reports: no symptoms Allergies: Coded Allergies: No Known Allergies (Unverified , 09/15/16) Objective Last 24 Hour Vital Signs Date Time Temp Pulse Resp B/P Pulse Ox O2 Delivery O2 Flow Rate FiO2 09/21/16 14:00 100 22 135/76 100 Mechanical Ventilator 30 09/21/16 13:00 88 24 125/69 100 Mechanical Ventilator 30 09/21/16 12:52 88 21 30 09/21/16 12:00 97.1 89 22 124/66 100 Mechanical Ventilator 30 09/21/16 12:00 30 09/21/16 12:00 88 09/21/16 11:12 85 21 30 09/21/16 11:00 84 16 103/57 100 Mechanical Ventilator 30 09/21/16 10:00 90 23 98/60 100 Mechanical Ventilator 30 09/21/16 09:23 89 16 30 09/21/16 09:00 90 17 114/66 100 Mechanical Ventilator 30 09/21/16 08:00 96 09/21/16 08:00 30 09/21/16 08:00 97.5 96 18 116/61 100 Mechanical Ventilator 30 09/21/16 07:05 95 24 30 09/21/16 07:00 97 20 121/68 100 Mechanical Ventilator 30 09/21/16 06:00 93 20 121/68 100 Mechanical Ventilator 30 09/21/16 05:02 100 20 30 09/21/16 05:00 97 21 86/54 100 Mechanical Ventilator 30 09/21/16 04:00 98.0 97 20 111/63 100 Mechanical Ventilator 30 09/21/16 04:00 30 09/21/16 03:24 106 18 30 09/21/16 03:00 95 18 96/51 100 Mechanical Ventilator 30 09/21/16 02:00 95 18 96/51 100 Mechanical Ventilator 30 09/21/16 01:12 99 22 30 09/21/16 01:00 98 18 99/59 100 Mechanical Ventilator 30 09/21/16 00:00 101 09/21/16 00:00 30 09/21/16 00:00 99.0 101 18 88/56 100 Mechanical Ventilator 30 09/20/16 23:23 105 19 30 09/20/16 23:00 103 20 96/66 100 Mechanical Ventilator 30 09/20/16 22:00 102 20 142/81 100 Mechanical Ventilator 30 09/20/16 21:00 98.7 100 20 121/65 100 Mechanical Ventilator 30 09/20/16 21:00 117 28 30 09/20/16 20:00 86 09/20/16 20:00 85 18 124/70 100 Mechanical Ventilator 30 09/20/16 20:00 30 09/20/16 19:00 83 18 112/62 100 Mechanical Ventilator 30 09/20/16 18:54 84 19 30 09/20/16 18:00 85 17 105/54 100 Mechanical Ventilator 30 09/20/16 17:09 84 16 30 09/20/16 17:00 82 17 108/62 98 Mechanical Ventilator 30 09/20/16 16:00 98.9 84 17 83/54 100 Mechanical Ventilator 30 09/20/16 16:00 84 09/20/16 16:00 30 Intake and Output 09/20/16 09/21/16 19:00 07:00 Intake Total 930 ml 825 ml Output Total 795 ml 315 ml Balance 135 ml 510 ml IV Total 900 ml 825 ml Other 30 ml Output Urine Total 795 ml 315 ml Height (Feet): 5 Height (Inches): 6.00 Weight (Pounds): 140 EENT: PERRL/EOMI Neck: supple Cardiovascular: normal rate Respiratory/Chest: lungs clear Abdomen: soft Regina Banda MD Sep 21, 2016 15:10
[2016-09-21] MEDS ORDERED: Prochlorperazine 10mg tab ORAL PRN ×2 (15:15→18:15)
[2016-09-21] MEDS ORDERED: Glycopyrrolate 0.2mg/ml 1ml Vial IV PRN ×2 (15:15→18:15)
[2016-09-21] MEDS ORDERED: Artificial Tears 1.4% Op Soln BOTH EYES PRN ×2 (15:15→18:15)
[2016-09-21] MEDS ORDERED: Haloperidol 5mg/ml Inj IM PRN ×2 (15:15→18:15)
[2016-09-21] MEDS ORDERED: Morphine Sulfate 4mg/ml Inj SUBQ PRN ×2 (15:30→18:30)
[2016-09-21] MEDS ORDERED: PCA Morphine 1mg/ml 30 ML IV PRN (16:00)
[2016-09-21] MEDS ORDERED: Morphine Sulfate 10mg/ml Inj IVP ONE (16:00)
--- NOTE | 2016-09-21 16:03 | General Progress Note ---
Assessment/Plan Status: unchanged, deteriorating Assessment/Plan Acute renal failure- Cr jl 0.9 to 2.1- 1) Fungemia, Sepsis (2) Acute respiratory failure, on Vent (3) HTN, At Fib (4) Heart failure (5) Liver cirrhosis and Alcoholic liver disease and related Thrombocytopenia and Anemia (6) DNR Plan: patient is due for terminal extubation when daughter comes to hospital- Contnue current comfort care for now Subjective ROS Limited/Unobtainable: Yes Allergies: Coded Allergies: No Known Allergies (Unverified , 09/15/16) Objective Last 24 Hour Vital Signs Date Time Temp Pulse Resp B/P Pulse Ox O2 Delivery O2 Flow Rate FiO2 09/21/16 15:29 100 24 30 09/21/16 15:00 99 23 145/77 100 Mechanical Ventilator 30 09/21/16 14:00 100 22 135/76 100 Mechanical Ventilator 30 09/21/16 13:00 88 24 125/69 100 Mechanical Ventilator 30 09/21/16 12:52 88 21 30 09/21/16 12:00 97.1 89 22 124/66 100 Mechanical Ventilator 30 09/21/16 12:00 30 09/21/16 12:00 88 09/21/16 11:12 85 21 30 09/21/16 11:00 84 16 103/57 100 Mechanical Ventilator 30 09/21/16 10:00 90 23 98/60 100 Mechanical Ventilator 30 09/21/16 09:23 89 16 30 09/21/16 09:00 90 17 114/66 100 Mechanical Ventilator 30 09/21/16 08:00 96 09/21/16 08:00 30 09/21/16 08:00 97.5 96 18 116/61 100 Mechanical Ventilator 30 09/21/16 07:05 95 24 30 09/21/16 07:00 97 20 121/68 100 Mechanical Ventilator 30 09/21/16 06:00 93 20 121/68 100 Mechanical Ventilator 30 09/21/16 05:02 100 20 30 09/21/16 05:00 97 21 86/54 100 Mechanical Ventilator 30 09/21/16 04:00 98.0 97 20 111/63 100 Mechanical Ventilator 30 09/21/16 04:00 30 09/21/16 03:24 106 18 30 09/21/16 03:00 95 18 96/51 100 Mechanical Ventilator 30 09/21/16 02:00 95 18 96/51 100 Mechanical Ventilator 30 09/21/16 01:12 99 22 30 09/21/16 01:00 98 18 99/59 100 Mechanical Ventilator 30 09/21/16 00:00 101 09/21/16 00:00 30 09/21/16 00:00 99.0 101 18 88/56 100 Mechanical Ventilator 30 09/20/16 23:23 105 19 30 09/20/16 23:00 103 20 96/66 100 Mechanical Ventilator 30 09/20/16 22:00 102 20 142/81 100 Mechanical Ventilator 30 09/20/16 21:00 98.7 100 20 121/65 100 Mechanical Ventilator 30 09/20/16 21:00 117 28 30 09/20/16 20:00 86 09/20/16 20:00 85 18 124/70 100 Mechanical Ventilator 30 09/20/16 20:00 30 09/20/16 19:00 83 18 112/62 100 Mechanical Ventilator 30 09/20/16 18:54 84 19 30 09/20/16 18:00 85 17 105/54 100 Mechanical Ventilator 30 09/20/16 17:09 84 16 30 09/20/16 17:00 82 17 108/62 98 Mechanical Ventilator 30 Intake and Output 09/20/16 09/21/16 19:00 07:00 Intake Total 930 ml 825 ml Output Total 795 ml 315 ml Balance 135 ml 510 ml IV Total 900 ml 825 ml Other 30 ml Output Urine Total 795 ml 315 ml Height (Feet): 5 Height (Inches): 6.00 Weight (Pounds): 140 General Appearance: no apparent distress Objective PE not changed AMADOR MARI Sep 21, 2016 16:03
--- NOTE | 2016-09-21 17:03 | Cardiac Electrophysiology PN ---
Assessment/Plan Assessment/Plan 1. Respiratory failure. Terminally extubated today per family request. 2. Episode of atrial fibrillation with rapid ventricular response.In SR today. 3. Hypertension. 4. Echocardiogram showed ejection fraction of 50% to 55% with a small pericardial effusion and large posterior pleural effusion 5. Cirrhosis of the liver. 6. DNR.Comfort care.On morphine 7. Thrombocytopenia likely secondary to cirrhosis. 8. Alcoholic liver disease. DW RN and daughter at bedside. Being transfered to nonmonitored bed. Subjective Subjective In ICU terminally extubated and is on morphine drip. Daughter at bedside. Objective Last 24 Hour Vital Signs Date Time Temp Pulse Resp B/P Pulse Ox O2 Delivery O2 Flow Rate FiO2 09/21/16 16:36 Simple Mask 8.0 09/21/16 16:00 30 09/21/16 16:00 96 09/21/16 16:00 97.5 81 20 126/69 100 Mechanical Ventilator 30 09/21/16 15:29 100 24 30 09/21/16 15:00 99 23 145/77 100 Mechanical Ventilator 30 09/21/16 14:00 100 22 135/76 100 Mechanical Ventilator 30 09/21/16 13:00 88 24 125/69 100 Mechanical Ventilator 30 09/21/16 12:52 88 21 30 09/21/16 12:00 97.1 89 22 124/66 100 Mechanical Ventilator 30 09/21/16 12:00 30 09/21/16 12:00 88 09/21/16 11:12 85 21 30 09/21/16 11:00 84 16 103/57 100 Mechanical Ventilator 30 09/21/16 10:00 90 23 98/60 100 Mechanical Ventilator 30 09/21/16 09:23 89 16 30 09/21/16 09:00 90 17 114/66 100 Mechanical Ventilator 30 09/21/16 08:00 96 09/21/16 08:00 30 09/21/16 08:00 97.5 96 18 116/61 100 Mechanical Ventilator 30 09/21/16 07:05 95 24 30 09/21/16 07:00 97 20 121/68 100 Mechanical Ventilator 30 09/21/16 06:00 93 20 121/68 100 Mechanical Ventilator 30 09/21/16 05:02 100 20 30 09/21/16 05:00 97 21 86/54 100 Mechanical Ventilator 30 09/21/16 04:00 98.0 97 20 111/63 100 Mechanical Ventilator 30 09/21/16 04:00 30 09/21/16 03:24 106 18 30 09/21/16 03:00 95 18 96/51 100 Mechanical Ventilator 30 09/21/16 02:00 95 18 96/51 100 Mechanical Ventilator 30 09/21/16 01:12 99 22 30 09/21/16 01:00 98 18 99/59 100 Mechanical Ventilator 30 09/21/16 00:00 101 09/21/16 00:00 30 09/21/16 00:00 99.0 101 18 88/56 100 Mechanical Ventilator 30 09/20/16 23:23 105 19 30 09/20/16 23:00 103 20 96/66 100 Mechanical Ventilator 30 09/20/16 22:00 102 20 142/81 100 Mechanical Ventilator 30 09/20/16 21:00 98.7 100 20 121/65 100 Mechanical Ventilator 30 09/20/16 21:00 117 28 30 09/20/16 20:00 86 09/20/16 20:00 85 18 124/70 100 Mechanical Ventilator 30 09/20/16 20:00 30 09/20/16 19:00 83 18 112/62 100 Mechanical Ventilator 30 09/20/16 18:54 84 19 30 09/20/16 18:00 85 17 105/54 100 Mechanical Ventilator 30 09/20/16 17:09 84 16 30 Intake and Output 09/20/16 09/21/16 19:00 07:00 Intake Total 930 ml 825 ml Output Total 795 ml 315 ml Balance 135 ml 510 ml IV Total 900 ml 825 ml Other 30 ml Output Urine Total 795 ml 315 ml Current Medications Medications (Trade) Dose Ordered Sig/Marcello Route PRN Reason Start Time Stop Time Status Last Admin Dose Admin Acetaminophen (Tylenol) 650 mg Q4H PRN ORAL fever 09/15/16 10:45 10/15/16 10:44 Artificial Tears 1 drop 1 drop QIDPRN PRN BOTH EYES Dry Eyes 09/17/16 18:15 10/17/16 18:14 Dextrose (D5W 1000ml) 1,000 ml @ 75 mls/hr [id number] IV 09/16/16 09:45 10/16/16 09:44 09/21/16 09:30 Glycopyrrolate (Robinul) 0.1 mg Q6H PRN IV excessive secretions 09/17/16 18:15 10/17/16 18:14 Haloperidol Lactate (Haldol) 1 mg Q30M PRN IM Agitation 09/17/16 18:15 10/17/16 18:14 Lorazepam 2 mg 2 mg EVERY 2 HOURS PRN IV For Anxiety 09/15/16 10:45 09/22/16 10:44 Morphine Sulfate (Morphine Sulfate) 4 mg Q3H PRN SUBQ Severe Pain (Pain Scale 7-10) 09/21/16 15:30 09/28/16 15:29 Morphine Sulfate (BINDERY MACHINE SETTER/SET UP OPERATOR Morphine) 30 ml @ 0 mls/hr BINDERY MACHINE SETTER/SET UP OPERATOR Protocol PRN IV COMFORT CARE 09/21/16 16:00 09/28/16 15:59 09/21/16 16:33 Ondansetron HCl (Zofran) 4 mg Q6H PRN IVP Nausea & Vomiting 09/15/16 10:45 10/15/16 10:44 Prochlorperazine (Compazine) 10 mg Q6H PRN ORAL Nausea & Vomiting 09/17/16 18:15 10/17/16 18:14 Objective NECK: No JVD, orally intubated with OG-tube. LUNGS: Decreased breath sounds. CARDIOVASCULAR: Shows regular S1 and S2 with no gallop. ABDOMEN: Distended with ascites. EXTREMITIES: A 1+ pedal edema. FLORIN GALVIN Sep 21, 2016 17:03
--- NOTE | 2016-09-21 17:52 | Infectious Diseases Prog Note ---
Assessment/Plan Problems: (1) Fungemia Assessment & Plan: with blood culture positive for monica tropicalis x 2, on micafungin empirically , now on comfort care and hospice (2) Acute respiratory failure Assessment & Plan: intubated, on mechanical ventilation, pulmonary is following (3) Sepsis Assessment & Plan: poor prognosis , wide spectrum antibiotics were stopped , he is on hospic care (4) Heart failure Assessment & Plan: consider diuresis, cardiology is following (5) Liver cirrhosis Assessment & Plan: supportive care , consult GI (6) Colonization with VRE (vancomycin-resistant enterococcus) Assessment & Plan: keep in contact isolation Subjective ROS Limited/Unobtainable: Yes Allergies: Coded Allergies: No Known Allergies (Unverified , 09/15/16) Subjective he is intubated and sedated on mechanical ventilation , not in distress. Objective Vital Signs Last 24 Hour Vital Signs Date Time Temp Pulse Resp B/P Pulse Ox O2 Delivery O2 Flow Rate FiO2 09/21/16 16:36 Simple Mask 8.0 09/21/16 16:00 30 09/21/16 16:00 96 09/21/16 16:00 97.5 81 20 126/69 100 Mechanical Ventilator 30 09/21/16 15:29 100 24 30 09/21/16 15:00 99 23 145/77 100 Mechanical Ventilator 30 09/21/16 14:00 100 22 135/76 100 Mechanical Ventilator 30 09/21/16 13:00 88 24 125/69 100 Mechanical Ventilator 30 09/21/16 12:52 88 21 30 09/21/16 12:00 97.1 89 22 124/66 100 Mechanical Ventilator 30 09/21/16 12:00 30 09/21/16 12:00 88 09/21/16 11:12 85 21 30 09/21/16 11:00 84 16 103/57 100 Mechanical Ventilator 30 09/21/16 10:00 90 23 98/60 100 Mechanical Ventilator 30 09/21/16 09:23 89 16 30 09/21/16 09:00 90 17 114/66 100 Mechanical Ventilator 30 09/21/16 08:00 96 09/21/16 08:00 30 09/21/16 08:00 97.5 96 18 116/61 100 Mechanical Ventilator 30 09/21/16 07:05 95 24 30 09/21/16 07:00 97 20 121/68 100 Mechanical Ventilator 30 09/21/16 06:00 93 20 121/68 100 Mechanical Ventilator 30 09/21/16 05:02 100 20 30 09/21/16 05:00 97 21 86/54 100 Mechanical Ventilator 30 09/21/16 04:00 98.0 97 20 111/63 100 Mechanical Ventilator 30 09/21/16 04:00 30 09/21/16 03:24 106 18 30 09/21/16 03:00 95 18 96/51 100 Mechanical Ventilator 30 09/21/16 02:00 95 18 96/51 100 Mechanical Ventilator 30 09/21/16 01:12 99 22 30 09/21/16 01:00 98 18 99/59 100 Mechanical Ventilator 30 09/21/16 00:00 101 09/21/16 00:00 30 09/21/16 00:00 99.0 101 18 88/56 100 Mechanical Ventilator 30 09/20/16 23:23 105 19 30 09/20/16 23:00 103 20 96/66 100 Mechanical Ventilator 30 09/20/16 22:00 102 20 142/81 100 Mechanical Ventilator 30 09/20/16 21:00 98.7 100 20 121/65 100 Mechanical Ventilator 30 09/20/16 21:00 117 28 30 09/20/16 20:00 86 09/20/16 20:00 85 18 124/70 100 Mechanical Ventilator 30 09/20/16 20:00 30 09/20/16 19:00 83 18 112/62 100 Mechanical Ventilator 30 09/20/16 18:54 84 19 30 09/20/16 18:00 85 17 105/54 100 Mechanical Ventilator 30 Height (Feet): 5 Height (Inches): 6.00 Weight (Pounds): 140 General Appearance: WD/WN, no acute distress HEENT: normocephalic, atraumatic, anicteric Respiratory/Chest: chest wall non-tender, normal breath sounds, no respiratory distress, no accessory muscle use, decreased breath sounds Cardiovascular: normal peripheral pulses, normal rate, regular rhythm Abdomen: normal bowel sounds, soft, non tender, no organomegaly, non distended , no mass Extremities: no cyanosis, no clubbing Skin: no rash, no lesions, ulcers Current Medications Medications (Trade) Dose Ordered Sig/Marcello Route PRN Reason Start Time Stop Time Status Last Admin Dose Admin Acetaminophen (Tylenol) 650 mg Q4H PRN ORAL fever 12/28/16 10:45 10/15/16 10:44 Artificial Tears 1 drop 1 drop QIDPRN PRN BOTH EYES Dry Eyes 09/17/16 18:15 10/17/16 18:14 Dextrose (D5W 1000ml) 1,000 ml @ 75 mls/hr [id number] IV 09/16/16 09:45 10/16/16 09:44 09/21/16 09:30 Glycopyrrolate (Robinul) 0.1 mg Q6H PRN IV excessive secretions 09/17/16 18:15 10/17/16 18:14 Haloperidol Lactate (Haldol) 1 mg Q30M PRN IM Agitation 09/17/16 18:15 10/17/16 18:14 Lorazepam 2 mg 2 mg EVERY 2 HOURS PRN IV For Anxiety 09/15/16 10:45 09/22/16 10:44 Morphine Sulfate (Morphine Sulfate) 4 mg Q3H PRN SUBQ Severe Pain (Pain Scale 7-10) 09/21/16 15:30 09/28/16 15:29 Morphine Sulfate (PATENT LAW SPECIALIST Morphine) 30 ml @ 0 mls/hr PATENT LAW SPECIALIST Protocol PRN IV COMFORT CARE 09/21/16 16:00 09/28/16 15:59 09/21/16 16:33 Ondansetron HCl (Zofran) 4 mg Q6H PRN IVP Nausea & Vomiting 09/15/16 10:45 10/15/16 10:44 Prochlorperazine (Compazine) 10 mg Q6H PRN ORAL Nausea & Vomiting 09/17/16 18:15 10/17/16 18:14 Tana Landeros M.D. Sep 21, 2016 17:52
[2016-09-21] MEDS ORDERED: LORazepam Inj 2mg/ml 1ml IV PRN (18:00)
[2016-09-21] MEDS ORDERED: Rate Change PCA 1 Each MISC PRN (22:00)
[2016-09-21] MEDS: PCA Morphine 1mg/ml 30 ML IV PRN (22:36)
[2016-09-21] MEDS: PCA shift volume MISC SCH (23:06)
[2016-09-22] VITALS: BP 81/49
[2016-09-22 04:00] VITALS: BP 72/41
[2016-09-22] MEDS: PCA Morphine 1mg/ml 30 ML IV PRN ×4 (04:43→23:07)
--- NOTE | 2016-09-22 05:27 | General Progress Note ---
Assessment/Plan Assessment/Plan ASSESSMENT: 1. Leukocytosis likely secondary to underlying infection/pneumonia. Improved 2. Anemia 2/2 chronic disease 3. Decreased hemoglobin and hematocrit, rule out GI bleed. 4. Respiratory failure s/p intubation 5. Thrombocytopenia, likely secondary to liver cirrhosis. stable >40k 6. Liver cirrhosis and fatty infiltration. Heptatitis C + 7. Transaminitis. 8. Elevated bnp 9. Pneumonia. 10. Hepatitis C+ 11. Ascites s/p para RECOMMENDATIONS: 1. On comfort care measures. s/p terminal extubation. Now on non-monitored bed on morphine gtt 2. Followup on Cardiology, GI, Pulmonary recs 3. GI prophylaxis with pantoprazole. 4. DVT prophylaxis with SCDs. 5. Anemia workup has been reviewed, ferritin >400 6. Pain control with morphine gtt 7. Discussed with staff. Thank you, Brandon Soto MD Subjective Constitutional: Reports: no symptoms HEENT: Reports: no symptoms Cardiovascular: Reports: no symptoms Respiratory: Reports: no symptoms Gastrointestinal/Abdominal: Reports: poor appetite Genitourinary: Reports: no symptoms Neurologic/Psychiatric: Reports: no symptoms Endocrine: Reports: no symptoms Hematologic/Lymphatic: Reports: anemia Allergies: Coded Allergies: No Known Allergies (Unverified , 09/15/16) Subjective stable, no events, no bleeding, remains on comfort care measures Objective Last 24 Hour Vital Signs Date Time Temp Pulse Resp B/P Pulse Ox O2 Delivery O2 Flow Rate FiO2 09/22/16 04:00 5 09/22/16 00:00 8 09/22/16 00:00 97.9 101 16 81/49 98 Simple Mask 09/21/16 23:06 97.5 09/21/16 22:37 8 09/21/16 20:15 97.5 83 20 88/51 100 Simple Mask 8.0 09/21/16 20:00 97.5 83 20 88/51 100 Nasal Cannula 10.0 09/21/16 19:00 97.5 83 20 88/51 100 Nasal Cannula 10.0 09/21/16 19:00 97.5 83 20 88/51 100 Nasal Cannula 10.0 09/21/16 18:30 97.2 78 18 90/54 100 Simple Mask 8.0 09/21/16 17:00 82 14 83/47 100 Mechanical Ventilator 30 09/21/16 16:36 Simple Mask 8.0 09/21/16 16:00 30 09/21/16 16:00 96 09/21/16 16:00 97.5 81 20 126/69 100 Mechanical Ventilator 30 09/21/16 15:29 100 24 30 09/21/16 15:00 99 23 145/77 100 Mechanical Ventilator 30 09/21/16 14:00 100 22 135/76 100 Mechanical Ventilator 30 09/21/16 13:00 88 24 125/69 100 Mechanical Ventilator 30 09/21/16 12:52 88 21 30 09/21/16 12:00 97.1 89 22 124/66 100 Mechanical Ventilator 30 09/21/16 12:00 30 09/21/16 12:00 88 09/21/16 11:12 85 21 30 09/21/16 11:00 84 16 103/57 100 Mechanical Ventilator 30 09/21/16 10:00 90 23 98/60 100 Mechanical Ventilator 30 09/21/16 09:23 89 16 30 09/21/16 09:00 90 17 114/66 100 Mechanical Ventilator 30 09/21/16 08:00 96 09/21/16 08:00 30 09/21/16 08:00 97.5 96 18 116/61 100 Mechanical Ventilator 30 09/21/16 07:05 95 24 30 09/21/16 07:00 97 20 121/68 100 Mechanical Ventilator 30 09/21/16 06:00 93 20 121/68 100 Mechanical Ventilator 30 Intake and Output 09/21/16 09/22/16 19:00 07:00 Intake Total 692.5 ml 20 ml Output Total 395 ml 300 ml Balance 297.5 ml -280 ml Free Water 30 ml IV Total 612.5 ml 20 ml Other 50 ml Output Urine Total 395 ml 300 ml Height (Feet): 5 Height (Inches): 6.00 Weight (Pounds): 140 General Appearance: no apparent distress EENT: TMs normal Neck: supple Cardiovascular: regular rhythm Respiratory/Chest: normal breath sounds Abdomen: soft Extremities: non-tender Neurologic: responsive Skin: warm/dry Objective on vent Brandon Soto Sep 22, 2016 05:27
[2016-09-22] MEDS: PCA shift volume MISC SCH ×2 (07:23→15:09)
[2016-09-22 08:00] VITALS: BP 71/41
--- NOTE | 2016-09-22 10:15 | GI Progress Note ---
Assessment/Plan Problems: (1) Hypoalbuminemia ICD Codes: E88.09 - Other disorders of plasma-protein metabolism, not elsewhere classified SNOMED: 496741825 (2) Anemia ICD Codes: D64.9 - Anemia, unspecified SNOMED: 915407926 (3) Respiratory distress ICD Codes: R06.00 - Dyspnea, unspecified SNOMED: 583877218 (4) Liver cirrhosis ICD Codes: K74.60 - Unspecified cirrhosis of liver SNOMED: 97831309 Qualifiers: Qualified Codes: K70.31 - Alcoholic cirrhosis of liver with ascites (5) DNR (do not resuscitate) ICD Codes: Z66 - Do not resuscitate SNOMED: 733508524 (6) Sepsis ICD Codes: A41.9 - Sepsis, unspecified organism SNOMED: 05921995 (7) Acute respiratory failure ICD Codes: J96.00 - Acute respiratory failure, unspecified whether with hypoxia or hypercapnia SNOMED: 90890473 Qualifiers: Qualified Codes: J96.01 - Acute respiratory failure with hypoxia Status: unchanged Status Narrative Discussed with Dr. Tomas. Assessment/Plan await terminal extubation Subjective Subjective limited Objective Last 24 Hour Vital Signs Date Time Temp Pulse Resp B/P Pulse Ox O2 Delivery O2 Flow Rate FiO2 09/22/16 08:00 5 09/22/16 08:00 96.1 97 6 71/41 100 Simple Mask 09/22/16 04:00 5 09/22/16 04:00 97.5 98 8 72/41 98 Simple Mask 09/22/16 00:00 8 09/22/16 00:00 97.9 101 16 81/49 98 Simple Mask 09/21/16 23:06 97.5 09/21/16 22:37 8 09/21/16 20:15 97.5 83 20 88/51 100 Simple Mask 8.0 09/21/16 20:00 97.5 83 20 88/51 100 Nasal Cannula 10.0 09/21/16 19:00 97.5 83 20 88/51 100 Nasal Cannula 10.0 09/21/16 19:00 97.5 83 20 88/51 100 Nasal Cannula 10.0 09/21/16 18:30 97.2 78 18 90/54 100 Simple Mask 8.0 09/21/16 17:00 82 14 83/47 100 Mechanical Ventilator 30 09/21/16 16:36 Simple Mask 8.0 09/21/16 16:00 30 09/21/16 16:00 96 09/21/16 16:00 97.5 81 20 126/69 100 Mechanical Ventilator 30 09/21/16 15:29 100 24 30 09/21/16 15:00 99 23 145/77 100 Mechanical Ventilator 30 09/21/16 14:00 100 22 135/76 100 Mechanical Ventilator 30 09/21/16 13:00 88 24 125/69 100 Mechanical Ventilator 30 09/21/16 12:52 88 21 30 09/21/16 12:00 97.1 89 22 124/66 100 Mechanical Ventilator 30 09/21/16 12:00 30 09/21/16 12:00 88 09/21/16 11:12 85 21 30 09/21/16 11:00 84 16 103/57 100 Mechanical Ventilator 30 Intake and Output 09/21/16 09/22/16 19:00 07:00 Intake Total 692.5 ml 20 ml Output Total 395 ml 350 ml Balance 297.5 ml -330 ml Free Water 30 ml IV Total 612.5 ml 20 ml Other 50 ml Output Urine Total 395 ml 350 ml Height (Feet): 5 Height (Inches): 6.00 Weight (Pounds): 140 General Appearance: lethargic Cardiovascular: normal rate Respiratory/Chest: other - simple mask Abdominal Exam: soft Christel Griffin [email or web address] Sep 22, 2016 10:15
[2016-09-22 11:34] VITALS: BP 68/41
--- NOTE | 2016-09-22 12:31 | General Progress Note ---
Assessment/Plan Status: deteriorating Status Narrative Hypotensive Assessment/Plan Acute renal failure- Cr jl 0.9 to 2.1- 1) Fungemia, Sepsis (2) Acute respiratory failure, on Vent (3) HTN, At Fib (4) Heart failure (5) Liver cirrhosis and Alcoholic liver disease and related Thrombocytopenia and Anemia (6) DNR Plan: extubated- comfort care- pre terminal- Subjective ROS Limited/Unobtainable: Yes Allergies: Coded Allergies: No Known Allergies (Unverified , 09/15/16) Objective Last 24 Hour Vital Signs Date Time Temp Pulse Resp B/P Pulse Ox O2 Delivery O2 Flow Rate FiO2 09/22/16 12:00 5 09/22/16 11:34 96.3 96 5 68/41 100 Simple Mask 09/22/16 08:00 5 09/22/16 08:00 96.1 97 6 71/41 100 Simple Mask 09/22/16 04:00 5 09/22/16 04:00 97.5 98 8 72/41 98 Simple Mask 09/22/16 00:00 8 09/22/16 00:00 97.9 101 16 81/49 98 Simple Mask 09/21/16 23:06 97.5 09/21/16 22:37 8 09/21/16 20:15 97.5 83 20 88/51 100 Simple Mask 8.0 09/21/16 20:00 97.5 83 20 88/51 100 Nasal Cannula 10.0 09/21/16 19:00 97.5 83 20 88/51 100 Nasal Cannula 10.0 09/21/16 19:00 97.5 83 20 88/51 100 Nasal Cannula 10.0 09/21/16 18:30 97.2 78 18 90/54 100 Simple Mask 8.0 09/21/16 17:00 82 14 83/47 100 Mechanical Ventilator 30 09/21/16 16:36 Simple Mask 8.0 09/21/16 16:00 30 09/21/16 16:00 96 09/21/16 16:00 97.5 81 20 126/69 100 Mechanical Ventilator 30 09/21/16 15:29 100 24 30 09/21/16 15:00 99 23 145/77 100 Mechanical Ventilator 30 09/21/16 14:00 100 22 135/76 100 Mechanical Ventilator 30 09/21/16 13:00 88 24 125/69 100 Mechanical Ventilator 30 09/21/16 12:52 88 21 30 Intake and Output 09/21/16 09/22/16 19:00 07:00 Intake Total 692.5 ml 20 ml Output Total 395 ml 350 ml Balance 297.5 ml -330 ml Free Water 30 ml IV Total 612.5 ml 20 ml Other 50 ml Output Urine Total 395 ml 350 ml Height (Feet): 5 Height (Inches): 6.00 Weight (Pounds): 140 General Appearance: no apparent distress, lethargic Objective PE not changed AMADOR MARI Sep 22, 2016 12:31
--- NOTE | 2016-09-22 14:45 | General Progress Note ---
Assessment/Plan Problem List: (1) Heart failure ICD Codes: I50.9 - Heart failure, unspecified SNOMED: 81852948 Qualifiers: Qualified Codes: I50.33 - Acute on chronic diastolic (congestive) heart failure (2) Sepsis ICD Codes: A41.9 - Sepsis, unspecified organism SNOMED: 25028658 (3) Acute respiratory failure ICD Codes: J96.00 - Acute respiratory failure, unspecified whether with hypoxia or hypercapnia SNOMED: 37501389 Qualifiers: Qualified Codes: J96.01 - Acute respiratory failure with hypoxia (4) Liver cirrhosis ICD Codes: K74.60 - Unspecified cirrhosis of liver SNOMED: 85019148 Qualifiers: Qualified Codes: K70.31 - Alcoholic cirrhosis of liver with ascites (5) Respiratory distress ICD Codes: R06.00 - Dyspnea, unspecified SNOMED: 757292382 (6) Anemia ICD Codes: D64.9 - Anemia, unspecified SNOMED: 444770511 (7) Hypoalbuminemia ICD Codes: E88.09 - Other disorders of plasma-protein metabolism, not elsewhere classified SNOMED: 257961157 Status: progressing Assessment/Plan no acute events anemia pna and sepsis no change chf abx per id reviewed chart and labs Subjective ROS Limited/Unobtainable: Yes Constitutional: Reports: no symptoms Allergies: Coded Allergies: No Known Allergies (Unverified , 09/15/16) Objective Last 24 Hour Vital Signs Date Time Temp Pulse Resp B/P Pulse Ox O2 Delivery O2 Flow Rate FiO2 09/22/16 12:00 5 09/22/16 11:34 96.3 96 5 68/41 100 Simple Mask 09/22/16 08:00 5 09/22/16 08:00 96.1 97 6 71/41 100 Simple Mask 09/22/16 04:00 5 09/22/16 04:00 97.5 98 8 72/41 98 Simple Mask 09/22/16 00:00 8 09/22/16 00:00 97.9 101 16 81/49 98 Simple Mask 09/21/16 23:06 97.5 09/21/16 22:37 8 09/21/16 20:15 97.5 83 20 88/51 100 Simple Mask 8.0 09/21/16 20:00 97.5 83 20 88/51 100 Nasal Cannula 10.0 09/21/16 19:00 97.5 83 20 88/51 100 Nasal Cannula 10.0 09/21/16 19:00 97.5 83 20 88/51 100 Nasal Cannula 10.0 09/21/16 18:30 97.2 78 18 90/54 100 Simple Mask 8.0 09/21/16 17:00 82 14 83/47 100 Mechanical Ventilator 30 09/21/16 16:36 Simple Mask 8.0 09/21/16 16:00 30 09/21/16 16:00 96 09/21/16 16:00 97.5 81 20 126/69 100 Mechanical Ventilator 30 09/21/16 15:29 100 24 30 09/21/16 15:00 99 23 145/77 100 Mechanical Ventilator 30 Intake and Output 09/21/16 09/22/16 19:00 07:00 Intake Total 692.5 ml 20 ml Output Total 395 ml 350 ml Balance 297.5 ml -330 ml Free Water 30 ml IV Total 612.5 ml 20 ml Other 50 ml Output Urine Total 395 ml 350 ml Height (Feet): 5 Height (Inches): 6.00 Weight (Pounds): 140 General Appearance: confused EENT: PERRL/EOMI Neck: supple Cardiovascular: normal rate Respiratory/Chest: lungs clear Abdomen: soft Regina Banda MD Sep 22, 2016 14:45
--- NOTE | 2016-09-22 15:51 | Cardiac Electrophysiology PN ---
Assessment/Plan Assessment/Plan 1. Respiratory failure. Terminally extubated. 2. Episode of atrial fibrillation with rapid ventricular response.Off tele. 3. Hypertension. 4. Echocardiogram showed ejection fraction of 50% to 55% with a small pericardial effusion and large posterior pleural effusion 5. Cirrhosis of the liver. 6. DNR. Comfort care.On morphine drip. 7. Thrombocytopenia likely secondary to cirrhosis. 8. Alcoholic liver disease. Will sign off. Subjective Subjective Terminally extubated , on morphine drip in med, surge. Objective Last 24 Hour Vital Signs Date Time Temp Pulse Resp B/P Pulse Ox O2 Delivery O2 Flow Rate FiO2 09/22/16 12:00 5 09/22/16 11:34 96.3 96 5 68/41 100 Simple Mask 09/22/16 08:00 5 09/22/16 08:00 96.1 97 6 71/41 100 Simple Mask 09/22/16 04:00 5 09/22/16 04:00 97.5 98 8 72/41 98 Simple Mask 09/22/16 00:00 8 09/22/16 00:00 97.9 101 16 81/49 98 Simple Mask 09/21/16 23:06 97.5 09/21/16 22:37 8 09/21/16 20:15 97.5 83 20 88/51 100 Simple Mask 8.0 09/21/16 20:00 97.5 83 20 88/51 100 Nasal Cannula 10.0 09/21/16 19:00 97.5 83 20 88/51 100 Nasal Cannula 10.0 09/21/16 19:00 97.5 83 20 88/51 100 Nasal Cannula 10.0 09/21/16 18:30 97.2 78 18 90/54 100 Simple Mask 8.0 09/21/16 17:00 82 14 83/47 100 Mechanical Ventilator 30 09/21/16 16:36 Simple Mask 8.0 09/21/16 16:00 30 09/21/16 16:00 96 09/21/16 16:00 97.5 81 20 126/69 100 Mechanical Ventilator 30 Intake and Output 09/21/16 09/22/16 18:59 06:59 Intake Total 767.5 ml 20 ml Output Total 430 ml 350 ml Balance 337.5 ml -330 ml Free Water 30 ml IV Total 687.5 ml 20 ml Other 50 ml Output Urine Total 430 ml 350 ml Objective NECK: No JVD LUNGS: Decreased breath sounds. CARDIOVASCULAR: Regular S1 and S2 . ABDOMEN: Distended with ascites. EXTREMITIES: A 1+ pedal edema. FLORIN GALVIN Sep 22, 2016 15:51
[2016-09-22 15:56] VITALS: BP 64/36
--- NOTE | 2016-09-22 17:04 | Infectious Diseases Prog Note ---
Assessment/Plan Problems: (1) Fungemia Assessment & Plan: with blood culture positive for [place] tropicalis x 2, off micafungin empirically , now on comfort care and hospice (2) Acute respiratory failure Assessment & Plan: intubated, on mechanical ventilation, pulmonary is following (3) Sepsis Assessment & Plan: poor prognosis , wide spectrum antibiotics were stopped , he is on hospic care (4) Heart failure Assessment & Plan: consider diuresis, cardiology is following (5) Liver cirrhosis Assessment & Plan: supportive care , consult GI (6) Colonization with VRE (vancomycin-resistant enterococcus) Assessment & Plan: keep in contact isolation Subjective ROS Limited/Unobtainable: Yes Allergies: Coded Allergies: No Known Allergies (Unverified , 09/15/16) Subjective he is extubated and on morphin drip for comfort measures and hospice care Objective Vital Signs Last 24 Hour Vital Signs Date Time Temp Pulse Resp B/P Pulse Ox O2 Delivery O2 Flow Rate FiO2 09/22/16 16:00 4 09/22/16 15:56 96.8 95 11 64/36 96 Simple Mask 7.0 09/22/16 12:00 5 09/22/16 11:34 96.3 96 5 68/41 100 Simple Mask 09/22/16 08:00 5 09/22/16 08:00 96.1 97 6 71/41 100 Simple Mask 09/22/16 04:00 5 09/22/16 04:00 97.5 98 8 72/41 98 Simple Mask 09/22/16 00:00 8 09/22/16 00:00 97.9 101 16 81/49 98 Simple Mask 09/21/16 23:06 97.5 09/21/16 22:37 8 09/21/16 20:15 97.5 83 20 88/51 100 Simple Mask 8.0 09/21/16 20:00 97.5 83 20 88/51 100 Nasal Cannula 10.0 09/21/16 19:00 97.5 83 20 88/51 100 Nasal Cannula 10.0 09/21/16 19:00 97.5 83 20 88/51 100 Nasal Cannula 10.0 09/21/16 18:30 97.2 78 18 90/54 100 Simple Mask 8.0 Height (Feet): 5 Height (Inches): 6.00 Weight (Pounds): 140 General Appearance: WD/WN, no acute distress HEENT: normocephalic, atraumatic, anicteric, mucous membranes moist Respiratory/Chest: chest wall non-tender, respiratory distress, decreased breath sounds Cardiovascular: normal peripheral pulses, normal rate, regular rhythm, no gallop/murmur Abdomen: normal bowel sounds, soft, non tender, no organomegaly, non distended , no mass, no scars Extremities: no cyanosis, no clubbing Skin: no rash, no lesions, no ulcers Current Medications Medications (Trade) Dose Ordered Sig/Marcello Route PRN Reason Start Time Stop Time Status Last Admin Dose Admin Acetaminophen (Tylenol) 650 mg Q4H PRN ORAL fever 09/21/16 18:45 10/21/16 18:44 Artificial Tears (Akwa-Tears) 1 drop QIDPRN PRN BOTH EYES Dry Eyes 09/21/16 18:15 10/21/16 18:14 Glycopyrrolate (Robinul) 0.1 mg Q6H PRN IV excessive secretions 09/21/16 18:15 10/21/16 18:14 Haloperidol Lactate (Haldol) 1 mg Q30M PRN IM Agitation 09/21/16 18:15 10/21/16 18:14 Lorazepam (Ativan 2mg/ml 1ml) 2 mg EVERY 2 HOURS PRN IV For Anxiety 09/21/16 18:00 09/28/16 17:59 Miscellaneous Medication (DIRECTOR INTERNAL COMMUNICATIONS Rate Change) 1 ea PRN MISC rate change 09/21/16 22:00 09/23/16 21:59 Miscellaneous Medication (DIRECTOR INTERNAL COMMUNICATIONS shift volume) 1 ea Q8HR@07,15,23 MISC 09/21/16 23:00 09/23/16 22:59 09/22/16 15:09 Morphine Sulfate (Morphine Sulfate) 4 mg Q3H PRN SUBQ Severe Pain (Pain Scale 7-10) 09/21/16 18:30 09/28/16 18:29 Morphine Sulfate (DIRECTOR INTERNAL COMMUNICATIONS Morphine) 30 ml @ 0 mls/hr [employer] INTERNAL COMMUNICATIONS Protocol PRN IV COMFORT CARE 09/21/16 18:00 09/28/16 17:59 09/22/16 16:57 Ondansetron HCl (Zofran) 4 mg Q6H PRN IVP Nausea & Vomiting 09/21/16 22:45 10/21/16 22:44 Prochlorperazine (Compazine) 10 mg Q6H PRN ORAL Nausea & Vomiting 09/21/16 18:15 10/21/16 18:14 Tana Landeros M.D. Sep 22, 2016 17:04
[2016-09-22] MEDS ORDERED: NS 550ML IV ONE (17:26)
[2016-09-22] MEDS ORDERED: Tubing IV Secondary IV ONE (17:26)
--- NOTE | 2016-09-22 17:26 | Pulmonology Progress Note ---
Assessment/Plan Problems: (1) Acute respiratory failure (2) Sepsis (3) Liver cirrhosis (4) long-term resident (5) DNR (do not resuscitate) (6) Heart failure Assessment/Plan terminally extubated, on morphine drip with agonal breathing titrate morphine to pts comfort. Subjective ROS Limited/Unobtainable: No Constitutional: Reports: no symptoms Allergies: Coded Allergies: No Known Allergies (Unverified , 09/15/16) Objective Last 24 Hour Vital Signs Date Time Temp Pulse Resp B/P Pulse Ox O2 Delivery O2 Flow Rate FiO2 09/22/16 16:00 4 09/22/16 15:56 96.8 95 11 64/36 96 Simple Mask 7.0 09/22/16 12:00 5 09/22/16 11:34 96.3 96 5 68/41 100 Simple Mask 09/22/16 08:00 5 09/22/16 08:00 96.1 97 6 71/41 100 Simple Mask 09/22/16 04:00 5 09/22/16 04:00 97.5 98 8 72/41 98 Simple Mask 09/22/16 00:00 8 09/22/16 00:00 97.9 101 16 81/49 98 Simple Mask 09/21/16 23:06 97.5 09/21/16 22:37 8 09/21/16 20:15 97.5 83 20 88/51 100 Simple Mask 8.0 09/21/16 20:00 97.5 83 20 88/51 100 Nasal Cannula 10.0 09/21/16 19:00 97.5 83 20 88/51 100 Nasal Cannula 10.0 09/21/16 19:00 97.5 83 20 88/51 100 Nasal Cannula 10.0 09/21/16 18:30 97.2 78 18 90/54 100 Simple Mask 8.0 Intake and Output 09/21/16 09/22/16 19:00 07:00 Intake Total 692.5 ml 20 ml Output Total 395 ml 350 ml Balance 297.5 ml -330 ml Free Water 30 ml IV Total 612.5 ml 20 ml Other 50 ml Output Urine Total 395 ml 350 ml General Appearance: WD/WN HEENT: normocephalic, atraumatic Respiratory/Chest: chest wall non-tender, lungs clear Cardiovascular: normal peripheral pulses, normal rate Abdomen: normal bowel sounds, soft, non tender Genitourinary: normal external genitalia Extremities: no clubbing Skin: no lesions Current Medications Medications (Trade) Dose Ordered Sig/Marcello Route PRN Reason Start Time Stop Time Status Last Admin Dose Admin Acetaminophen (Tylenol) 650 mg Q4H PRN ORAL fever 09/21/16 18:45 10/21/16 18:44 Artificial Tears (Akwa-Tears) 1 drop QIDPRN PRN BOTH EYES Dry Eyes 09/21/16 18:15 10/21/16 18:14 Glycopyrrolate (Robinul) 0.1 mg Q6H PRN IV excessive secretions 09/21/16 18:15 10/21/16 18:14 Haloperidol Lactate (Haldol) 1 mg Q30M PRN IM Agitation 09/21/16 18:15 10/21/16 18:14 Lorazepam (Ativan 2mg/ml 1ml) 2 mg EVERY 2 HOURS PRN IV For Anxiety 09/21/16 18:00 09/28/16 17:59 Miscellaneous Medication (FUR [employer]ESSING SUPERVISOR Rate Change) 1 ea PRN MISC rate change 09/21/16 22:00 09/23/16 21:59 Miscellaneous Medication (FUR DRESSING SUPERVISOR shift volume) 1 ea Q8HR@07,15,23 MISC 09/21/16 23:00 09/23/16 22:59 09/22/16 15:09 Morphine Sulfate (Morphine Sulfate) 4 mg Q3H PRN SUBQ Severe Pain (Pain Scale 7-10) 09/21/16 18:30 09/28/16 18:29 Morphine Sulfate (FUR [employer]ESSING SUPERVISOR Morphine) 30 ml @ 0 mls/hr FUR [employer]ESSING SUPERVISOR Protocol PRN IV COMFORT CARE 09/21/16 18:00 09/28/16 17:59 09/22/16 16:57 Ondansetron HCl (Zofran) 4 mg Q6H PRN IVP Nausea & Vomiting 09/21/16 22:45 10/21/16 22:44 Prochlorperazine (Compazine) 10 mg Q6H PRN ORAL Nausea & Vomiting 09/21/16 18:15 10/21/16 18:14 KALPESH ALANIZ Sep 22, 2016 17:26
[2016-09-22 21:04] VITALS: BP 63/33
--- NOTE | 2016-09-24 11:42 | Discharge Summary ---
Discharge Summary Hospital Course Date of Admission Sep 15, 2016 at 10:45 Date of Discharge Sep 23, 2016 at 02:35 Admitting Diagnosis Sepsis, heart failure HPI Jarek Croft is a 61 year old male who was admitted on Sep 15, 2016 at 10:45 for Sepsis,Heart Failure Hospital Course [id number] Discharge Discharge Disposition Patient Discharge Diagnoses: Nicolle Gonzalez NP Sep 24, 2016 11:42
--- NOTE | 2016-09-25 02:48 | Discharge Summary 2 SIG ---
DATE OF ADMISSION: 09/15/2016 DATE OF DISCHARGE: 09/23/2016 CONSULTANTS: 1. Enzo Lea M.D. 2. Luis Gooden M.D. 3. Brandon Soto M.D. 4. Tana Landeros M.D. 5. Reynaldo Cade M.D. 6. Jignesh Tomas M.D. BRIEF SUMMARY: The patient is an unfortunate 61-year-old male, who came into the emergency department, brought in by EMS for hypoxia. [facility] On evaluation at ED, the patient was in severe respiratory distress and was orally intubated. A central line was placed to the right femoral and patient was then admitted to ICU. Labs showed leukocytosis with anemia. Dr. Cade was consulted for vent management. Dr. Landeros was also consulted for antibiotic therapy possible healthcare acquired pneumonia with right lower lobe consolidation. He was pancultured. Blood culture positive for [place] tropicalis x2 and was given micafungin empirically. Dr. Lea was consulted for tachycardia and heart failure. Echocardiogram done showed ejection fraction of 50 to 55% with small pericardial effusion, enlarged posterior pleural effusion, and had a possible pericardial tamponade. Dr. Soto was consulted for evaluation of thrombocytopenia. Thrombocytopenia workup initiated. Dr. Gooden was also consulted as the patient developed worsening renal failure. He also presented with elevated liver enzymes possibly secondary to liver failure/cirrhosis and ETOH abuse. The patient was given proton pump inhibitors. Hepatitis panel was positive for hepatitis C. Thrombocytopenia likely secondary to liver cirrhosis. He had an episode of anemia and received one unit packed RBC transfusion. The patient was DNR and per family wishes, the patient was placed on comfort care and was terminally extubated. FINAL DIAGNOSES: 1. Acute respiratory failure. 2. Liver cirrhosis. 3. Fungemia. 4. Sepsis. 5. Episode of atrial fibrillation with rapid ventricular response. 6. Hypertension. 7. Thrombocytopenia likely secondary to cirrhosis. 8. Alcoholic liver disease. 9. Hepatitis C. 10. Acute renal failure. 11. Acute on chronic diastolic heart failure. 12. Ascites status post paracenteses. 13. Hypoalbuminemia . 14. Acute anemia status post blood transfusion. 15. Anemia secondary to chronic disease. 16. Palliative/comfort care. 17. Left lower anterior leg traumatic injury, left trochanter pressure ulcer stage III, right heel pressure ulcer deep tissue injury, left heel pressure ulcer deep tissue injury, right trochanter pressure ulcer deep tissue injury, and sacral pressure ulcer stage I, present on admission Regina Banda M.D. I have been assigned to dictate discharge summary on this account and I was not involved in the patient's management. Nicolle Gonzalez N.P. DR: Tank JOB#: [id number] CC: [id number]
--- NOTE | 2016-09-26 10:31 | Diagnostic Imaging Report ---
Indication: DYSPNEA Technique: One view of the chest Comparison: 09/17/2016 Findings: Endotracheal tube, nasogastric tube, right jugular central venous catheter all remain in stable satisfactory positions. Bilateral pleural effusions, large on the right, moderate to large in the left, persists. Interstitial congestive changes, retrocardiac consolidation persist. Findings are overall unchanged Impression: Unchanged, over one day, findings as above.
== END 2016-09-23 02:35 | disposition expired | DRG 720 ==
LOC: ENRESERV → ENRESERVTM → ENRESERVDT → EDBD 08:40 → EDBEDREQSVC 08:56 → EDBEDREQ 08:56 → EMR 09:17 → EDBEDREQ 09:41 → EDBEDREQSVC 09:41 → EDBEDREQ 10:42 → 2W 10:45 → EDBEDREQ 11:31 → ICU 11:41 → 4E 09-21 18:30
PROC: 5A1955Z Respiratory Ventilation, Greater than 96 Consecutive Hours (ICD-10-PCS; principal; 2016-09-15)
PROC: 0BH17EZ Insertion of Endotracheal Airway into Trachea, Via Natural or Artificial Opening (ICD-10-PCS; 2016-09-15)
PROC: 05HM33Z Insertion of Infusion Device into Right Internal Jugular Vein, Percutaneous Approach (ICD-10-PCS; 2016-09-15)
PROC: 0W9G3ZZ Drainage of Peritoneal Cavity, Percutaneous Approach (ICD-10-PCS; 2016-09-16)
PROC: 30233N1 Transfusion of Nonautologous Red Blood Cells into Peripheral Vein, Percutaneous Approach (ICD-10-PCS; 2016-09-16)
DX: A41.9 Sepsis, unspecified organism (principal); J96.01 Acute respiratory failure with hypoxia; I50.33 Acute on chronic diastolic (congestive) heart failure; J18.9 Pneumonia, unspecified organism; D68.4 Acquired coagulation factor deficiency; B37.89 Other sites of candidiasis; N17.9 Acute kidney failure, unspecified; I12.0 Hypertensive chronic kidney disease with stage 5 chronic kidney disease or end stage renal disease; N18.6 End stage renal disease; L89.223 Pressure ulcer of left hip, stage 3; L89.151 Pressure ulcer of sacral region, stage 1; I31.3 Pericardial effusion (noninflammatory); K70.30 Alcoholic cirrhosis of liver without ascites; D69.59 Other secondary thrombocytopenia; Z66 Do not resuscitate; I48.91 Unspecified atrial fibrillation; B19.20 Unspecified viral hepatitis C without hepatic coma; Z51.5 Encounter for palliative care; D63.8 Anemia in other chronic diseases classified elsewhere; L89.219 Pressure ulcer of right hip, unspecified stage; L89.629 Pressure ulcer of left heel, unspecified stage; L89.619 Pressure ulcer of right heel, unspecified stage; E88.09 Other disorders of plasma-protein metabolism, not elsewhere classified; Z86.74 Personal history of sudden cardiac arrest; R65.20 Severe sepsis without septic shock; K72.90 Hepatic failure, unspecified without coma; R18.8 Other ascites; E87.1 Hypo-osmolality and hyponatremia; I25.10 Atherosclerotic heart disease of native coronary artery without angina pectoris
CPT/HCPCS: 36415; 36600; 71010; 76700; 76942; 80053; 80150; 80202; 81003; 82140; 82248; 82378; 82550; 82553; 82607; 82728; 82746; 82803; 82962; 83010; 83540; 83550; 83605; 83615; 83735; 83880; 84100; 84439; 84443; 84484; 85007; 85025; 85044; 85060; 85362; 85379; 85384; 85610; 86703; 86705; 86709; 86803; 86850; 86900; 86901; 86920; 87040; 87070; 87081; 87086; 87181; 87205; 87340; 88104; 89051; 93005; 93306; 93970; 94002; 94003; 94660; 94760; J1815; J2250